=== PATIENT | male | born 1995 | race African-American/Black ===

== ENCOUNTER → 2020-02-06 12:48 | Outpatient (BNVA) | payer OTHER, SELFPAY | PROVIDERS: Visit Provider Surgery | DX: K62.89 Other specified diseases of anus and rectum (principal) | CPT/HCPCS: 46600; 99213 ==

== ENCOUNTER → 2020-04-09 09:21 | Outpatient (BNVA) | payer OTHER, SELFPAY | PROVIDERS: Visit Provider Surgery | DX: K62.89 Other specified diseases of anus and rectum (principal) | CPT/HCPCS: 46600; 99212 ==

== ENCOUNTER → 2020-05-07 15:19 | Outpatient (BNVA) | payer SELFPAY | PROVIDERS: Visit Provider Internal Medicine Gastroenterology | DX: Z76.89 Persons encountering health services in other specified circumstances (principal) ==

== ENCOUNTER 2020-08-06 15:24 | Outpatient (REF) | payer OTHER, SELFPAY ==
[2020-08-06 17:10] LABS: MANUAL DIFF FLAG NO
[2020-08-06 17:13] LABS: Basophils Absolute Auto 0.1 X10*3/uL (0.0-0.2); Basophils Percent Auto 0.7 % (0-2); Eosinophils Absolute Auto 0.2 X10*3/uL (0.0-0.4); Eosinophils Percent Auto 3.1 % (0-4); Hematocrit 40.5 % (42-52); Hemoglobin 13.5 g/dl (14.0-18.0); Imm Gran Abs Auto 0.01 X10*3/uL (0.00-0.03); Imm Gran Pct Auto 0.1 % (0.0-0.4); Lymphocytes Absolute Auto 1.4 X10*3/uL (1.2-4.9); Mean Corpuscular HGB Conc 33.3 g/dl (31.0-36.0); Mean Corpuscular Hemoglobin 29.9 pg (27.0-33.0); Mean Corpuscular Volume 89.8 fL (80-98); Mean Platelet Volume 9.4 fL (9.4-12.4); Monocytes Absolute Auto 0.5 X10*3/uL (0.1-1.2); Monocytes Percent Auto 6.6 % (2-11); Neutrophils Absolute Auto 5.3 X10*3/uL (2.0-8.3); Neutrophils Percent Auto 70.5 % (45-73); Platelet Count 304 X10*3/uL (160-400); Red Blood Count 4.51 X10*6/uL (4.60-5.80); Red Cell Distribution Width 11.3 % (11.0-16.0); White Blood Count 7.5 X10*3/uL (4.8-10.8)
[2020-08-06 17:35] LABS: Alanine Aminotransferase 21 U/L (0-40); Albumin Level 4.4 g/dL (3.5-5.0); Alkaline Phosphatase 61 U/L (39-117); Anion Gap 11 (12-20); Aspartate Amino Transferase 22 U/L (5-37); Bilirubin Total 0.9 mg/dL (0.0-1.0); Blood Urea Nitrogen 12 mg/dL (9-16); C Reactive Protein 0.25 mg/dL (< or = 0.50); Calcium 9.3 mg/dL (8.4-10.2); Carbon Dioxide 27 mmol/L (22-29); Chloride 108 mmol/L (96-108); Estimated Glomerular Filt Rate > 60; Glucose Random 92 mg/dL (60-115); Lipase 16 U/L (8-78); Potassium 4.5 mmol/L (3.3-5.1); Sodium 141 mmol/L (135-145)
[2020-08-06 17:56] LABS: Vitamin D 25-OH Total 7.5 ng/mL (>30)
[2020-08-06 18:07] LABS: Folate 9.3 ng/mL (> or = 4.0); Vitamin B12 197 pg/mL (200-900)
[2020-08-06 18:24] LABS: Erythrocyte Sedimentation Rate 3 MM/HR (0-15)
== END 2020-08-06 15:25 | disposition home or self-care (01) ==
LOC: HO.LAB 15:24
PROVIDERS: Visit Provider Internal Medicine Gastroenterology
DX: R10.9 Unspecified abdominal pain (principal); K60.2 Anal fissure, unspecified; K62.89 Other specified diseases of anus and rectum; K64.8 Other hemorrhoids; K62.5 Hemorrhage of anus and rectum
CPT/HCPCS: 36415; 80053; 82306; 82607; 82746; 83690; 85025; 85652; 86140; 99212

== ENCOUNTER 2020-09-24 07:44 | Outpatient (REF) | payer OTHER, SELFPAY ==
--- NOTE | ~2020-09-24 | US_ITS ---
EXAMINATION: US ABDOMEN COMPLETE CLINICAL INFORMATION: Unspecified abdominal pain. COMPARISON: CT pelvis 02/03/2018. Abdominal radiographs 03/12/2018 TECHNIQUE: Ultrasound of the abdomen is performed. FINDINGS: PANCREAS: The visualized pancreas is normal in size and contour and echogenicity and there is no pancreatic ductal distention. The distal body and tail are obscured by bowel gas and not completely imaged. ABDOMINAL AORTA: The proximal, mid, and distal segments are normal in caliber. INFERIOR VENA CAVA: Visualized portions are normal. LIVER: The liver is normal in size and smooth in contour. Hepatic parenchymal echogenicity is within limits of normal. Possibility of mild hepatic steatosis cannot be completely excluded. There is no focal hepatic parenchymal lesion. Doppler shows portal flow towards the liver. GALLBLADDER: Normal. The gallbladder is physiologically distended without evidence of stones, sludge, polyps, wall thickening or pericholecystic fluid. COMMON BILE DUCT: Normal in caliber measuring 0.2 cm in diameter. RIGHT KIDNEY: Normal. No hydronephrosis. No renal calculi or focal parenchymal lesions. The kidney measures 11.0 cm in maximum dimension. LEFT KIDNEY: Normal. No hydronephrosis. No renal calculi or focal parenchymal lesions. The kidney measures 10.0 cm in maximum dimension. SPLEEN: Normal. The spleen measures 11.7 cm in maximum dimension. FREE FLUID: None. US/US abdomen complete IMPRESSION: 1. No cholelithiasis or biliary ductal dilatation. 2. No hydronephrosis or visible renal calculi. 3. Visualized pancreas unremarkable. Portions are obscured by bowel gas.
== END 2020-09-24 07:45 | disposition home or self-care (01) ==
LOC: HO.US 07:44
PROVIDERS: Visit Provider Internal Medicine Gastroenterology
DX: R10.9 Unspecified abdominal pain (principal)
CPT/HCPCS: 76700

== ENCOUNTER → 2020-10-22 14:46 | Outpatient (BNVA) | payer OTHER, SELFPAY | PROVIDERS: Visit Provider Internal Medicine Gastroenterology | DX: K64.8 Other hemorrhoids (principal); K62.5 Hemorrhage of anus and rectum; K62.89 Other specified diseases of anus and rectum; K60.2 Anal fissure, unspecified; R10.9 Unspecified abdominal pain; E53.8 Deficiency of other specified B group vitamins | CPT/HCPCS: 99212 ==

== ENCOUNTER 2020-11-20 07:01 | Day surgery (SDC) | payer OTHER, SELFPAY ==
[2020-11-13 14:48] VITALS: BMI 35.2
--- NOTE | 2020-11-19 09:58 | HO.ANESPROP2 ---
Documented by User: Jessenia Dhaliwal 11/19/20 10:02 HPI - Anesthesia Eval Consult details Narrative: 25yo M for Upper Endoscopy and Colonoscopy PMF Active Problems Active Problems: All Active Problems (Updated 10/22/20 @ 20:34 by Mel Lopes MD) Rectal bleeding (Acute) Internal hemorrhoids (Acute) Abdominal pain (Acute) Vitamin B12 deficiency (Acute) Chronic diarrhea (Acute) Anal pain (Acute) Anal fissure (Acute) Depression (Acute) Anxiety (Acute) Past Medical History Medical History Anal fissure Anal pain Anxiety Depression Family History Family History Father History of hypertension Mother History of hyperthyroidism Brother No problems noted. Sister No problems noted. 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 Meds Allergies Allergy/AdvReac Type Severity Reaction Status Date / Time doxycycline AdvReac Unknown depression Verified 10/22/20 14:47 Home Medications Medication Instructions Recorded Confirmed Last Taken Type bupropion HCl 150 mg 24 hr tablet, 150 mg PO DAILY 02/06/20 11/13/20 Unknown History extended release lorazepam 0.5 mg tablet 0.5 mg PO BEDTIME PRN 08/06/20 11/13/20 Unknown History Exam Exam Date and Time: November 19, 2020 0958 Height,Weight and Vital Signs: Height 6 ft Weight 117.934 kg Assessment and Plan Assessment Anesthesia Assessment: Chart Reviewed Documented by User: Ambreen Hurdmelanie 11/20/20 07:29 [facility] Past Medical History Medical History Anal fissure Anal pain Anxiety Depression Family History Family History Father History of hypertension Mother History of hyperthyroidism Brother No problems noted. Sister No problems noted. 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 Meds Allergies Allergy/AdvReac Type Severity Reaction Status Date / Time doxycycline AdvReac Unknown depression Verified 10/22/20 14:47 Home Medications Medication Instructions Recorded Confirmed Last Taken Type bupropion HCl 150 mg 24 hr tablet, 150 mg PO DAILY 02/06/20 11/13/20 Unknown History extended release lorazepam 0.5 mg tablet 0.5 mg PO BEDTIME PRN 08/06/20 11/13/20 Unknown History Exam Airway Mallampati Class: II TM Dist: >3cm Neck ROM: Full Heart: rrr Lungs: cta Assessment and Plan Assessment Anesthesia Assessment: Anesthesia Plan Discussed and Chart Reviewed Final Anesthetic Review NPO: Yes ASA Class: II Final Preanesthetic Review: No Changes in Pt Med Stat and Consent Obtained/Reviewed Patient Risk: Intermediate Procedure Risk: Intermediate Anesthetic Plan Anesthetic Plan: MAC: Disposition: Standard PACU
[2020-11-20 07:17] VITALS: BP 137/80; PULSE 57; RESP 16; TEMP 36.8; O2SAT 99
[2020-11-20] MEDS: Lactated Ringers 1,000 ML 100 ML IVCONT (07:34)
--- NOTE | 2020-11-20 08:21 | MHC.SHP ---
Pre-Procedural Eval Section A Date of Service: 11/20/20 The patient is an INPATIENT: No Changes since office visit: Yes Patient answered all questions; No Cold of Flu in the past 2 weeks, No New Medical Problems and No Changes in Medication The History & Physical has been completed within 30 days and I have reviewed it.: Yes Section B Chief Complaint: deficiency of other specified B group vitamins Allergies: Allergies Allergy/AdvReac Type Severity Reaction Status Date / Time doxycycline AdvReac Unknown depression Verified 10/22/20 14:47 Exam Surgical H&P Exam: Normal: Heart, Normal: Lungs, Normal: Extremities and Normal: Abdomen Plan Diagnosis/Plan: Unchanged I have reviewed the history and physical and performed a pertinent physical examination on my patient. No changes have occurred unless specified.
--- NOTE | 2020-11-20 08:27 | PM.OP ---
Brief Operative Note Date of Service: 11/20/20 Pre-op diagnosis: Abd pain, diarrhea, recurrent anal fissure Post-op diagnosis: other (Gastritis, poor colon prep) Procedure: FLEXIBLE TRANSORAL UPPER GASTROINTESTINAL ENDOSCOPY WITH BIOPSIES AND COLONOSCOPY TILL CECUM/TI WITH BIOPSIES UPPER ENDOSCOPY Consent: Indications for the procedure and potential complications of bleeding, perforation, reaction to medications and missed diagnosis were discussed with the patient and informed consent was obtained. Instrument: Olympus GIF H 190 mid size upper endoscope Monitoring: Vital signs and clinical assessment, continuous EKG monitoring, Pulse oximetry, Carbon Dioxide monitoring and blood pressure monitoring were done throughout the procedure. Procedure: The patient was placed in the left lateral decubitis position and pre-procedure medications were administered and a bite block was placed. The endoscope was inserted into the mouth and advanced under direct vision to the third part of duodenum. A careful inspection was made as the upper endoscope was withdrawn including a retroflexed examination of the proximal stomach; Findings and interventions are described below. Findings: Larynx: Normal Esophagus: GE junction at 40 cms. No esophagitis or Page's. Stomach: Mild gastric erythema. Biopsies were obtained. Grade 2 flap valve on retroflexed examination of the cardia. Duodenum: Normal bulb and descending duodenum. Biopsies were obtained from 3rd part of duodenum to check for celiac sprue. Intervention: Biopsies as noted above COLONOSCOPY PROCEDURE NOTE Consent: Indications for the procedure and potential complications of bleeding, perforation, reaction to medications and missed diagnosis were discussed with the patient and informed consent was obtained. Instrument: Olympus PCF H 190 L variable stiffness pediatric colonoscope Monitoring: Vital signs and clinical assessment, intermittent blood pressure monitoring, continuous EKG monitoring, Pulse oximetry and Carbon Dioxide monitoring were done throughout the procedure. Colon withdrawl time was 22 minutes. Procedure: The patient was placed in the left lateral decubitis position and pre-procedure medications were administered. After a digital rectal examination of the ano-rectum, the video colonoscope was inserted into the rectum and advanced through the colon to the cecum. The colonoscope was slowly withdrawn in a retrograde panoramic fashion and the colon mucosa was carefully examined including a retroflexed view of the rectum. Findings and interventions are described below. Procedure Difficulty: : Colon was long and tortuous and there was some loop formation. LLQ pressure was applied to intubate the ascending colon/cecum Findings: Terminal Ileum: Distal 5 cms was examined and revealed nodular appearing mucosa without ulcers - random biopsies obtained Cecum: Partially evaluated due to poor prep - mucosa appeared normal Ascending Colon: Partially evaluated due to poor prep - mucosa appeared normal Transverse Colon: Partially evaluated due to poor prep - mucosa appeared normal Descending Colon: Partially evaluated due to poor prep - mucosa appeared normal Sigmoid Colon: Partially evaluated due to poor prep - mucosa appeared normal Rectum: Partially evaluated due to poor prep - mucosa appeared normal Ano-rectum: Tight anal sphincter and a few perianal skin tags and no active fissure was seen Colon preparation: Fair to poor with semi-solid and solid stools throughout the colon despite copious irrigation Impression and Post Procedure Diagnosis: Endoscopy Findings: STOMACH: Gastritis DUODENUM: Normal, biopsies were obtained to check for celiac sprue Colonoscopy Findings: Partially evaluated due to poor prep - mucosa appeared normal Nodular appearing TI. Random biopsies obtained from the TI, right and left colon to check for IBD Plan: Await pathology results Patient has an appointment on 12/17/20 in the [facility] with Mel Lopes M.D.. Repeat Colonoscopy in 20 years if colon biopsies are normal. Above findings were reviewed with the patient. Surgeon: Mel Lopes MD Anesthesia: MAC (Dr Sosa) Was an Business Quality Assurance Analyst used for this Procedure?: Yes Business Quality Assurance Analyst: Nick Olivas Estimated blood loss (mL): 0 Pathology: other (A- SMALL BOWEL BXS R/O CELIAC B- GASTRIC ANTRIUM BXS R/O H. PYLORI C- SMALL BOWEL BXS ( VIA COLONOSCOPY) D- RIGHT COLON BXS R/O IBD E- LEFT COLON BXS R/O IBD) Condition: stable Disposition: PACU
[2020-11-20 09:18] VITALS: BP 118/76; PULSE 68; RESP 16; TEMP 36.6; O2SAT 100
[2020-11-20 09:34] VITALS: BP 118/68; PULSE 58; RESP 18; O2SAT 100
[2020-11-20] MEDS: Acetaminophen 325 MG TABLET 650 MG PO (10:00)
== END 2020-11-20 10:35 | disposition home or self-care (01) ==
PROVIDERS: PCP Hospitalist; Visit Provider Internal Medicine Gastroenterology
PROC: (CPT 45380; principal; 2020-11-20 08:20)
DX: R10.9 Unspecified abdominal pain (principal); R19.7 Diarrhea, unspecified; K60.2 Anal fissure, unspecified; K64.4 Residual hemorrhoidal skin tags; E53.8 Deficiency of other specified B group vitamins; K29.50 Unspecified chronic gastritis without bleeding; F32.9 Major depressive disorder, single episode, unspecified; Z79.899 Other long term (current) drug therapy; Z88.1 Allergy status to other antibiotic agents
CPT/HCPCS: 45380; 43239; 88305; 88342

== ENCOUNTER → 2021-01-14 15:07 | Outpatient (BNVA) | payer OTHER, SELFPAY | PROVIDERS: Referring Provider Physician Assistant; Visit Provider Internal Medicine Gastroenterology | DX: K52.9 Noninfective gastroenteritis and colitis, unspecified (principal); K60.2 Anal fissure, unspecified; K59.09 Other constipation; E53.8 Deficiency of other specified B group vitamins | CPT/HCPCS: 99212 ==

== ENCOUNTER 2021-01-19 09:27 | Outpatient (REF) | payer OTHER, SELFPAY ==
[2021-01-19 10:10] LABS: Hematocrit 40.6 % (42-52); Hemoglobin 13.5 g/dl (14.0-18.0); Mean Corpuscular HGB Conc 33.3 g/dl (31.0-36.0); Mean Corpuscular Hemoglobin 29.9 pg (27.0-33.0); Mean Platelet Volume 9.9 fL (9.4-12.4); Platelet Count 296 X10*3/uL (160-400); Red Blood Count 4.51 X10*6/uL (4.60-5.80); Red Cell Distribution Width 11.2 % (11.0-16.0); White Blood Count 7.8 X10*3/uL (4.8-10.8)
[2021-01-19 10:22] LABS: Estimated Average Glucose 74 mg/dL; Hemoglobin A1c % 4.2 %
[2021-01-19 10:27] LABS: Alanine Aminotransferase 21 U/L (0-40); Albumin Level 4.1 g/dL (3.5-5.0); Alkaline Phosphatase 61 U/L (39-117); Anion Gap 11 (12-20); Aspartate Amino Transferase 22 U/L (5-37); Bilirubin Total 0.9 mg/dL (0.0-1.0); Blood Urea Nitrogen 16 mg/dL (9-16); Calcium 9.4 mg/dL (8.4-10.2); Carbon Dioxide 24 mmol/L (22-29); Chloride 110 mmol/L (96-108); Estimated Glomerular Filt Rate > 60; Glucose Fasting 93 mg/dL (60-99); Potassium 4.5 mmol/L (3.3-5.1); Sodium 140 mmol/L (135-145); Total Protein 6.7 g/dL (6.5-8.0)
[2021-01-19 10:49] LABS: Vitamin B12 182 pg/mL (200-900)
[2021-01-19 10:51] LABS: TSH reflex Free T4 2.59 uIU/mL (0.32-4.0)
== END 2021-01-19 09:28 | disposition home or self-care (01) ==
LOC: HO.LAB 09:27
PROVIDERS: Absent Provider Internal Medicine Gastroenterology; PCP Physician Assistant; Visit Provider Physician Assistant
DX: Z13.29 Encounter for screening for other suspected endocrine disorder (principal); I10 Essential (primary) hypertension; K52.9 Noninfective gastroenteritis and colitis, unspecified; E53.8 Deficiency of other specified B group vitamins
CPT/HCPCS: 36415; 80053; 82306; 82607; 83036; 84443; 85027

== ENCOUNTER 2021-02-04 06:30 | Outpatient (REF) | payer OTHER, SELFPAY ==
--- NOTE | ~2021-02-04 | CT_ITS ---
EXAMINATION: CT abdomen pelvis w con CLINICAL INFORMATION: Reason for Exam R10.9 - Unspecified abdominal pain COMPARISON: No prior CT available for comparison. TECHNIQUE: Multidetector volumetric imaging was performed from the superior aspect of the liver through the pubic symphysis 85 mL Omnipaque 350 injected. Sagittal and coronal reformatted images were obtained on the technologist's workstation. This CT examination was performed using dose optimization techniques as appropriate, variously including the following: *Automated exposure control *Adjustment of mA and/or kV according to patient size (this includes techniques or standardized protocols for targeted exams where dose is matched to indication/reason for exam; i.e. extremities or head) *Use of iterative reconstruction technique DLP: 753 mGy-cm FINDINGS: LOWER THORAX: Included lung bases are clear. HEPATOBILIARY: No focal hepatic lesions. No biliary ductal dilatation. GALLBLADDER: Gallbladder unremarkable. SPLEEN: Spleen is normal in size. PANCREAS: No focal mass or ductal dilatation. STOMACH AND GASTROINTESTINAL TRACT: Stomach is grossly unremarkable. There is no bowel distention or thickening. No CT evidence of appendicitis. There is excess amount of stool in the colon suggests possible constipation. ADRENALS: No adrenal nodules. KIDNEYS/URETERS: No hydronephrosis, stones or solid mass lesions. URINARY BLADDER: Partially decompressed. PELVIC VISCERA: Unremarkable PERITONEUM: No free air or fluid. LYMPH NODES: No lymphadenopathy. VASCULAR:Abdominal aorta normal in size, no aneurysm found. BONES, ABDOMINAL WALL AND SOFT TISSUES: Age-appropriate changes of the spine and skeletal system, no destructive osteolytic or osteosclerotic bone lesion found CT/CT abdomen pelvis w con IMPRESSION: 1. No CT evidence of acute intra-abdominal process to explain patient's pain symptoms, no evidence of appendicitis, there are no kidney stones or hydronephrosis. 2. Excess amount of stool in the colon suggests possible constipation. Please correlate clinically.
[2021-02-04] MEDS: Barium Sulfate Oral (Vanilla) 450 ML ORAL.SUSP 900 ML PO (09:18)
[2021-02-04] MEDS: iohexoL 350 MG/ML 100 ML INFUS..BTL IV (09:18)
== END 2021-02-04 06:31 | disposition home or self-care (01) ==
LOC: HO.CT 06:30
PROVIDERS: Visit Provider Internal Medicine Gastroenterology
DX: R10.9 Unspecified abdominal pain (principal); K59.09 Other constipation; K52.9 Noninfective gastroenteritis and colitis, unspecified
CPT/HCPCS: 74177; Q9967

== ENCOUNTER 2021-04-02 14:41 | Outpatient (REF) | payer OTHER, SELFPAY | END 2021-04-02 14:42 | disposition home or self-care (01) | LOC: HO.LAB 14:41 | PROVIDERS: PCP Physician Assistant; Visit Provider Internal Medicine Gastroenterology | DX: Z13.89 Encounter for screening for other disorder (principal) ==

== ENCOUNTER 2021-04-08 14:28 | Outpatient (REF) | payer OTHER, SELFPAY ==
[2021-04-13 02:31] LABS: Calprotectin, Fecal 29 mcg/g
== END 2021-04-08 14:29 | disposition home or self-care (01) ==
LOC: HO.LNP 14:28
PROVIDERS: Visit Provider Internal Medicine Gastroenterology
DX: R10.9 Unspecified abdominal pain (principal); K52.9 Noninfective gastroenteritis and colitis, unspecified
CPT/HCPCS: 83993

== ENCOUNTER → 2021-05-06 10:02 | Outpatient (BNVA) | payer OTHER, SELFPAY | PROVIDERS: PCP Physician Assistant; Referring Provider Physician Assistant; Visit Provider Internal Medicine Gastroenterology | DX: R10.9 Unspecified abdominal pain (principal); K62.5 Hemorrhage of anus and rectum; K64.8 Other hemorrhoids; E53.8 Deficiency of other specified B group vitamins; K60.2 Anal fissure, unspecified; K59.09 Other constipation; R19.8 Other specified symptoms and signs involving the digestive system and abdomen | CPT/HCPCS: 99212 ==

== ENCOUNTER 2021-05-20 09:46 | Outpatient (REF) | payer OTHER, SELFPAY ==
[2021-05-21 12:43] LABS: H Pylori Breath Test Negative (Negative)
== END 2021-05-20 09:47 | disposition home or self-care (01) ==
LOC: HO.LAB 09:46
PROVIDERS: PCP Physician Assistant; Referring Provider Physician Assistant; Visit Provider Internal Medicine Gastroenterology
DX: R10.9 Unspecified abdominal pain (principal); K59.09 Other constipation
CPT/HCPCS: 36415; 83013; 99211

== ENCOUNTER 2021-12-13 11:33 | Outpatient (REF) | payer OTHER, SELFPAY ==
[2021-12-13 12:16] LABS: Estimated Average Glucose 77 mg/dL; Hemoglobin A1c % 4.3 %
[2021-12-13 12:57] LABS: Alanine Aminotransferase 18 U/L (0-40); Albumin Level 4.4 g/dL (3.5-5.0); Alkaline Phosphatase 65 U/L (39-117); Anion Gap 15 (12-20); Aspartate Amino Transferase 19 U/L (5-37); Bilirubin Total 1.1 mg/dL (0.0-1.0); Blood Urea Nitrogen 15 mg/dL (9-16); Calcium 9.2 mg/dL (8.4-10.2); Carbon Dioxide 23 mmol/L (22-29); Chloride 107 mmol/L (96-108); Estimated Glomerular Filt Rate > 60; Glucose Fasting 65 mg/dL (60-99); Potassium 4.7 mmol/L (3.3-5.1); Sodium 140 mmol/L (135-145); Total Protein 7.2 g/dL (6.5-8.0)
[2021-12-13 13:06] LABS: TSH reflex Free T4 2.87 uIU/mL (0.32-4.0); Vitamin D 25-OH Total 15.9 ng/mL (>30)
[2021-12-13 13:09] LABS: Syphilis Screen Nonreactive (Nonreactive)
[2021-12-13 13:19] LABS: Folate 16.5 ng/mL (> or = 4.0); Vitamin B12 238 pg/mL (200-900)
[2021-12-13 17:24] LABS: CT PCR NOT DETECTED (Not Detect.); NG PCR NOT DETECTED (Not Detect.)
[2021-12-14 04:08] LABS: HBS Num1 6.01 mIU/mL (0-7.99); HBc Num1 0.14 S/CO (0.00-0.79); HBsAGNum1 0.21 S/CO (0.00-0.99); HIV AB/AG Nonreactive (Nonreactive); HIV Num 1 0.08 S/CO (0.00-0.99); Hepatitis B Core Antibody Nonreactive (Nonreactive); Hepatitis B Surface Antigen Negative (Negative); ~HepC Num1 0.09 S/CO (0.00-0.79); ~Hepatitis B Surface Antibody NONREACTIVE (Nonreactive); ~Hepatitis C Antibody Nonreactive (Nonreactive)
[2021-12-17 17:35] LABS: Vitamin A 47 mcg/dL (38-98)
[2021-12-21 13:21] LABS: Parietal Cell Antibody 49.4 Unit (<=20.0)
== END 2021-12-13 11:34 | disposition home or self-care (01) ==
LOC: HO.LAB 11:33
PROVIDERS: PCP Physician Assistant; Visit Provider Physician Assistant
DX: E53.8 Deficiency of other specified B group vitamins (principal); E66.09 Other obesity due to excess calories; Z68.35 Body mass index [BMI] 35.0-35.9, adult; Z11.3 Encounter for screening for infections with a predominantly sexual mode of transmission; Z20.2 Contact with and (suspected) exposure to infections with a predominantly sexual mode of transmission; Z13.29 Encounter for screening for other suspected endocrine disorder; Z13.1 Encounter for screening for diabetes mellitus
CPT/HCPCS: 80053; 82306; 82607; 82746; 83036; 83516; 84443; 84590; 86704; 86706; 86780; 86803; 87340; 87389; 87491; 87591

== ENCOUNTER 2022-01-24 11:12 | Emergency (ER) | payer OTHER, SELFPAY ==
[2022-01-24 14:28] VITALS: BP 111/70; PULSE 70; RESP 18; TEMP 36.9; O2SAT 99; BMI 35.2
== END 2022-01-24 17:09 | disposition left against medical advice (07) ==
PROVIDERS: Emergency Provider Emergency Medicine; PCP Physician Assistant
DX: H53.8 Other visual disturbances (principal); R51.9 Headache, unspecified
CPT/HCPCS: 99281

== ENCOUNTER 2022-12-03 09:43 | Outpatient (REF) | payer OTHER, SELFPAY ==
[2022-12-03 13:48] LABS: CT PCR NOT DETECTED (Not Detect.); NG PCR NOT DETECTED (Not Detect.)
[2022-12-05 04:33] LABS: HBc Num1 0.25 S/CO (0.00-0.79); HBsAGNum1 0.37 S/CO (0.00-0.99); HIV AB/AG Nonreactive (Nonreactive); HIV Num 1 0.06 S/CO (0.00-0.99); Hepatitis B Core Antibody Nonreactive (Nonreactive); Hepatitis B Surface Antigen Negative (Negative); ~HepC Num1 0.12 S/CO (0.00-0.79); ~Hepatitis C Antibody Nonreactive (Nonreactive)
[2022-12-05 04:34] LABS: Syphilis Screen Nonreactive (Nonreactive)
[2022-12-05 06:21] LABS: HBS Num2 8.65 mIU/mL (0-7.99); HBS Num3 8.61 mIU/mL (0-7.99); ~Hepatitis B Surface Antibody GRAYZONE (Nonreactive)
== END 2022-12-03 09:44 | disposition home or self-care (01) ==
LOC: HO.LAB 09:43
PROVIDERS: PCP Physician Assistant; Visit Provider Physician Assistant
DX: Z20.2 Contact with and (suspected) exposure to infections with a predominantly sexual mode of transmission (principal)
CPT/HCPCS: 0353U; 86704; 86706; 86780; 86803; 87340; 87389

== ENCOUNTER 2022-12-30 05:05 | Emergency (ER) | payer OTHER, SELFPAY ==
[2022-12-30 05:07] VITALS: BP 141/84; PULSE 85; RESP 18; TEMP 36.6; O2SAT 99; BMI 31.7
[2022-12-30 05:36] VITALS: BP 131/75; PULSE 71; RESP 14; TEMP 37; O2SAT 99
[2022-12-30 06:03] LABS: Appearance Urine Clear; Color Urine Yellow; Glucose Urine UA Negative (Negative); Leukocyte Esterase Urine Moderate (2+) (Negative); Nitrite Urine Negative (Negative); Specific Gravity - Urine 1.015 (1.005-1.025); UMIC TRIGGER UACC YES; Urine Blood Negative (Negative); Urine Ketones Negative (Negative); Urine Protein Negative (Neg-Trace)
[2022-12-30 06:08] LABS: Bacteria Urine None Seen (None Seen); Hyaline Casts Urine 0-2 /LPF (0-2); RBC Urine 0-2 /HPF (0-2); Squamous Epithelial Cell Urine 0-2 /HPF (0-2); UACC Culture Trigger YES; WBC Urine >50 /HPF (0-5)
--- NOTE | 2022-12-30 07:02 | ED_ITS ---
HPI - Male Genitourinary General Chief complaint: Urogenital-Male Stated complaint: urogen-male Time Seen by Provider: 12/30/22 06:57 Source: patient Mode of arrival: ambulatory Limitations: no limitations History of Present Illness HPI Narrative: 27 yo male no PMH here with c/o unprotected sex 2 weeks ago now with white discharge no rash and no pain with urination. no other symptoms. no rash no fevers MD Complaint: penile discharge and possible STD exposure Onset (ago): day(s) (few) Duration: intermittent Location: penis Severity: mild Relieving factors: none Exacerbating factors: urination Context: new sexual partner Associated symptoms: Reports discharge Related Data Home Medications Medication Instructions Recorded Confirmed dextroamphetamine-amphetamine ER 20 mg PO QAM 07/07/21 03/02/22 20 mg 24hr capsule,extend release (Adderall XR) Previous Rx's Medication Instructions Recorded doxycycline monohydrate 100 mg 100 mg PO BID #13 caps 12/30/22 capsule Allergies Allergy/AdvReac Type Severity Reaction Status Date / Time doxycycline AdvReac Unknown depression Verified 12/30/22 05:13 Review of Systems Review of Systems: Constitutional : No Fever, No Chills, Cardiovascular : No Chest Pain, No SOB Respiratory : No Dyspnea Gastrointestinal : No abdominal pain Musculoskeletal : No Joint Swelling Skin : No rash, no skin laceration Neuro : No Weakness, No Numbness : pos discharge, no dysuria PMFSH Past Medical History Attestation statement: The following information was validated with the patient. Medical History Anal fissure Anal pain Anxiety Depression Surgical History History of colonoscopy (~06/14/18) History of cystoscopy (~05/25/17) History of mastectomy (~2013) History of tonsillectomy Hx of esophagogastroduodenoscopy Family History Family History Father History of hypertension Mother History of hyperthyroidism Brother No problems noted. Sister No problems noted. Social History Social History Household Members: Family Housing: Apartment Alcohol intake: current Alcohol intake frequency: holidays/special occasions only Patient Tobacco Use Status: Never used Tobacco Smoked in Last 30 Days: No e-Cigarette/Vaping Use: Never Used Second Hand Smoke Exposure: No Use of substances other than those prescribed or required for medical reasons: No Advance Directives: No Advance Directives Information Provided: No Current occupational status: employed Current occupation: [employer] Cognitive needs: No Hearing needs: No Vision needs: Yes Physical Exam Vital Signs: Vital Signs: Last Vital Signs Temp 98.6 F 12/30/22 05:36 Pulse 71 12/30/22 05:36 Resp 14 12/30/22 05:36 BP 131/75 12/30/22 05:36 Pulse Ox 99 12/30/22 05:36 O2 Del Method Room Air 12/30/22 05:36 BMI result Body Mass Index 31.7 Appearance: Alert. Oriented X3. No acute distress. Eyes: Pupils equal, round and reactive to light. ENT: Pharynx normal. Neck: Normal inspection. Neck supple. CVS: Pulses normal. Respiratory: No respiratory distress. Abdomen: Soft and nontender. : scant discharge seen no rash no mass otherwise normal Skin: Skin warm and dry. Normal skin color. Extremities: No lower extremity edema. Neuro: Oriented X 3. No motor deficit. No sensory deficit. Medical Decision Making Medical Decision Making [facility] Narrative: 27 yo male with no hx of DM here with c/o penile discharge no rash no mass no fevers no urinary symptoms started after sexual intercourse - normal exam other than discharge at this time will start on ceftriaxone and doxycycline. Given precautions to return, safe sex practices Differential Diagnosis Differential Diagnoses: The differential diagnosis associated with the presentation includes STI, UTI Lab Data [facility] Lab Attestation statement: I reviewed the patient's lab results. Labs: Lab Results 12/30/22 Range/Units 05:57 Urine Color Yellow Urine Appearance Clear Urine pH 6.0 (5.0-9.0) Ur Specific [place] 1.015 (1.005-1.025) Urine Protein Negative (Neg-Trace) mg/dL Urine Glucose (UA) Negative (Negative) mg/dL Urine Ketones Negative (Negative) mg/dL Urine Blood Negative (Negative) Urine Nitrite Negative (Negative) Ur Leukocyte Esterase Moderate (2+) H (Negative) Urine RBC 0-2 (0-2) /HPF Urine WBC >50 H (0-5) /HPF Ur Squamous Epith Cells 0-2 (0-2) /HPF Urine Bacteria None Seen (None Seen) Hyaline Casts 0-2 (0-2) /LPF External Record Review External record reviewed: Inpatient record Prescription Management I considered prescription management with: Antibiotic doxycycline has tolerated before denies SI just makes him feel run down Discharge Plan Discharge Clinical Impression: Urethritis, STI (sexually transmitted infection) Patient Disposition: Home, Self-Care Instructions: Sexually Transmitted Diseases (ED) Additional Instructions: take antibiotics with full glass of water and meal can cause sun sensitivities. any thoughts of self harm call [phone]. if no improvement in symptoms please return. no sexual contact for 1 week. partner should get tested so you do not reinfect each other[facility] HIV and syphillis Prescriptions: New doxycycline monohydrate 100 mg capsule 100 mg PO BID Qty: 13 0RF No Action dextroamphetamine-amphetamine [Adderall XR] 20 mg capsule,extended release 24hr 20 mg PO QAM
--- NOTE | 2022-12-30 07:04 | PC.NURSE ---
Assumed care of this patient at 0700. ED Provider and male staff member at bedside.
[2022-12-30 07:13] VITALS: BP 122/69; PULSE 59; RESP 12; O2SAT 100
[2022-12-30] MEDS: cefTRIAXone sodium 500 MG, Lidocaine HCl 1 % MPF 1 ML IM (07:16)
[2022-12-30] MEDS: Doxycycline Monohydrate 100 MG CAPSULE PO (07:16)
--- NOTE | 2022-12-30 07:22 | PC.NURSE ---
Pt has documented adverse rx to doxycycline w/ rx of depression . Pt spoke w/ provider and agreed to take. Meds give as ordered.
--- NOTE | 2022-12-30 07:26 | PC.NURSE ---
Cleared for discharge. Instructions reviewed w/ pt. Denies pain at discharge......................................
[2022-12-30 09:27] LABS: CT PCR NOT DETECTED (Not Detect.); NG PCR NOT DETECTED (Not Detect.)
== END 2022-12-30 07:27 | disposition home or self-care (01) ==
PROVIDERS: Emergency Provider Emergency Medicine; PCP Physician Assistant
DX: N34.2 Other urethritis (principal); A64 Unspecified sexually transmitted disease; Z79.899 Other long term (current) drug therapy
CPT/HCPCS: 0353U; 81001; 87086; 96372; 99284; J0696

== ENCOUNTER 2023-01-06 05:30 | Emergency (ER) | payer OTHER, SELFPAY ==
--- NOTE | ~2023-01-06 | XR_ITS ---
EXAMINATION: XR CHEST CLINICAL INFORMATION: Chest pain COMPARISON: None available. TECHNIQUE: Frontal view of the chest was obtained. FINDINGS: No significant abnormality is noted involving the heart, lungs, mediastinum, bony thorax or soft tissues. XR/XR chest 1V IMPRESSION: Unremarkable examination.
--- NOTE | 2023-01-06 05:32 | ECG_ITS ---
Test Reason : chest pain Blood Pressure : / mmHG Vent. Rate : 074 BPM Atrial Rate : 074 BPM P-R Int : 142 ms QRS Dur : 094 ms QT Int : 360 ms P-R-T Axes : 056 072 039 degrees QTc Int : 399 ms Normal sinus rhythm with sinus arrhythmia RSR' or QR pattern in V1 suggests right ventricular conduction delay Abnormal ECG When compared with ECG of 13-MAR-2017 18:03, No significant change was found Referred By: Generic ED Physician Electronically Signed By:KAYLA MARC
[2023-01-06 05:40] VITALS: BP 135/84; PULSE 74; RESP 18; TEMP 36.7; O2SAT 97; BMI 31.6
[2023-01-06 05:59] VITALS: BP 125/74; PULSE 56; RESP 18; TEMP 36.9; O2SAT 97
[2023-01-06 06:50] LABS: MANUAL DIFF FLAG NO
[2023-01-06 06:51] LABS: Basophils Absolute Auto 0.1 X10*3/uL (0.0-0.2); Basophils Percent Auto 0.9 % (0-2); Eosinophils Absolute Auto 0.1 X10*3/uL (0.0-0.4); Eosinophils Percent Auto 2.4 % (0-4); Hematocrit 40.7 % (42.0-52.0); Hemoglobin 13.8 g/dl (14.0-18.0); Imm Gran Abs Auto 0.02 X10*3/uL (0.00-0.03); Imm Gran Pct Auto 0.4 % (0.0-0.4); Lymphocytes Absolute Auto 1.2 X10*3/uL (1.2-4.9); Lymphocytes Percent Auto 22.6 % (20-40); Mean Corpuscular HGB Conc 33.9 g/dl (31.0-36.0); Mean Corpuscular Hemoglobin 30.2 pg (27.0-33.0); Mean Corpuscular Volume 89.1 fL (80.0-98.0); Mean Platelet Volume 10.1 fL (9.4-12.4); Monocytes Absolute Auto 0.4 X10*3/uL (0.1-1.2); Monocytes Percent Auto 7.8 % (2-11); Neutrophils Absolute Auto 3.5 x10*3/uL (2.0-8.3); Neutrophils Percent Auto 65.9 % (45-73); Platelet Count 260 X10*3/uL (160-400); Red Blood Count 4.57 X10*6/uL (4.60-5.80); Red Cell Distribution Width 11.3 % (11.0-16.0); White Blood Count 5.4 X10*3/uL (4.8-10.8)
[2023-01-06 07:08] LABS: Alanine Aminotransferase 18 U/L (0-40); Albumin Level 4.3 g/dL (3.5-5.0); Alkaline Phosphatase 48 U/L (39-117); Anion Gap 11 (12-20); Aspartate Amino Transferase 23 U/L (5-37); Bilirubin Total 2.2 mg/dL (0.0-1.0); Blood Urea Nitrogen 9 mg/dL (9-16); Carbon Dioxide 25 mmol/L (22-29); Chloride 109 mmol/L (96-108); Creatinine Clr Calc Pharmacy 139.5; Estimated Glomerular Filt Rate > 60; Glucose Random 89 mg/dL (60-115); Potassium 3.7 mmol/L (3.3-5.1); Sodium 141 mmol/L (135-145); Total Protein 6.9 g/dL (6.5-8.0)
[2023-01-06 07:08] LABS: Appearance Urine Clear; Color Urine Dark Yellow; Glucose Urine UA Negative (Negative); Leukocyte Esterase Urine Trace (Negative); Nitrite Urine Negative (Negative); Specific Gravity - Urine >= 1.030 (1.005-1.025); UMIC TRIGGER UACC YES; Urine Blood Negative (Negative); Urine Ketones Trace mg/dL (Negative); Urine Protein Negative (Neg-Trace)
[2023-01-06 07:12] LABS: B Type Natriuretic Peptide 79 pg/mL (<100)
[2023-01-06 07:13] LABS: Troponin-I High Sensitivity < 2.7 ng/L (<3.5-35.0)
[2023-01-06 07:21] LABS: Bacteria Urine None Seen (None Seen); Hyaline Casts Urine 0-2 /LPF (0-2); RBC Urine 0-2 /HPF (0-2); Squamous Epithelial Cell Urine 0-2 /HPF (0-2); WBC Urine 0-5 /HPF (0-5)
[2023-01-06 08:29] LABS: Troponin-I High Sensitivity < 2.7 ng/L (<3.5-35.0)
[2023-01-06] MEDS: Magnesium Hydrox/Alum Hydrox 30 ML ORAL.SUSP 15 ML PO (08:29)
[2023-01-06] MEDS: PHENobarb/Hyoscy/Atropine/Scop 10 ML ELIXIR PO (08:30)
--- NOTE | 2023-01-06 08:39 | ED_ITS ---
HPI - General Adult General Chief complaint: General Medical Stated complaint: Chest pain, shortness of breath Time Seen by Provider: 01/06/23 06:33 Source: patient Mode of arrival: ambulatory Limitations: no limitations Related Data Home Medications Medication Instructions Recorded Confirmed dextroamphetamine-amphetamine ER 20 mg PO QAM 07/07/21 03/02/22 20 mg 24hr capsule,extend release (Adderall XR) Previous Rx's Medication Instructions Recorded doxycycline monohydrate 100 mg 100 mg PO BID #13 caps 12/30/22 capsule Allergies Allergy/AdvReac Type Severity Reaction Status Date / Time doxycycline AdvReac Unknown depression Verified 12/30/22 05:13 Review of Systems 2 Review of Systems: Constitutional : No Weight loss, No Fever, No Chills, No Fatigue, No Malaise ENT/Mouth : No sore throat, No Rhinorrhea Eyes: No Eye Pain, No Swelling, No Redness Cardiovascular : + Chest Pain, No SOB, No Dyspnea on Exertion, No Orthopnea, No Edema, No Palpitations Respiratory : No Cough, No Sputum, No Wheezing Gastrointestinal : No Nausea, No Vomiting, No Diarrhea, No Constipation, No abdominal Pain, No Hematochezia, No Melena Genitourinary : No Dysuria, No Urinary Frequency, No Hematuria, Musculoskeletal : No joint pain, No Myalgias, No Joint Swelling Skin : No Skin Lesions, No rash Neuro : No Weakness, No Numbness, No Dizziness, No Headache Psych : No Anxiety/Panic, No Depression All other systems reviewed and are negative Yes all other systems are reviewed and are negative [facility] Past Medical History Attestation statement: The following information was validated with the patient. Source: old records reviewed and nursing notes reviewed Medical History Anal pain Anal fissure Depression Anxiety Surgical History Hx of esophagogastroduodenoscopy History of colonoscopy (~06/14/18) History of mastectomy (~2013) History of cystoscopy (~05/25/17) History of tonsillectomy Family History Family History Father History of hypertension Mother History of hyperthyroidism Brother No problems noted. Sister No problems noted. Social History Social History Household Members: Family Housing: Apartment Alcohol intake: current Alcohol intake frequency: holidays/special occasions only Patient Tobacco Use Status: Never used Tobacco e-Cigarette/Vaping Use: Never Used Second Hand Smoke Exposure: No Advance Directives: No Advance Directives Information Provided: No Current occupational status: employed Current occupation: [employer] Cognitive needs: No Hearing needs: No Vision needs: Yes Physical Exam ED Vital Signs: Vital Signs - 24 hr 01/06/23 05:40 01/06/23 05:59 Temperature 98.0 F 98.5 F Pulse Rate 74 56 Respiratory Rate 18 18 Blood Pressure 135/84 125/74 Pulse Oximetry 97 97 Oxygen Delivery Method Room Air Room Air BMI result Body Mass Index 31.6 vss Appearance: Alert.? Oriented X3.? No acute distress.? Head: Normocephalic, atraumatic, no step-offs or deformities Eyes: Pupils equal, round and reactive to light.? ENT: Pharynx normal.? Neck: Normal inspection.? Neck supple.? CVS: Normal heart rate and rhythm.? Pulses normal.? Respiratory: No respiratory distress.? Breath sounds normal.? Abdomen: Soft and nontender.? Skin: Skin warm and dry.? Normal skin color.? Normal skin turgor.? Extremities: No lower extremity edema.? No calf ttp. 5/5 strength to bilateral upper and lower extremities Neuro: Oriented X 3.? No motor deficit.? No sensory deficit. CN 2-12 intact Course Reevaluation(s) Reevaluation #1: CBC appears to be around patient's baseline. Chemistry with no acute findings requiring intervention. Normal BNP. Troponin negative x2, EKG nonischemic. Patient reports he still feels a burning pain in his throat/chest however somewhat improved. UA without infection. Dimer negative. Chest x-ray with no acute findings. Will have him follow up with GI as well as Cardiology. Educated patient on diagnosis and treatment plan, answered all question, patient verbalizes understanding. At this time patient will be discharged home, advised to return with new or worsening symptoms. Educated on worrisome signs and symptoms and when to return. At this time I feel comfortable discharge home. This time history and physical exam not consistent with ACS, PE, dissection. This is likely noncardiac related chest pain/esophagitis. Time: 10:49 Medications Administered Discontinued Medications Generic Name Dose Route Start Last Admin Trade Name Riley PRN Reason Stop Dose Admin Al Hydroxide/Mg Hydroxide 15 ml 01/06/23 07:51 01/06/23 08:29 Magnesium Hydrox/Alum Hydrox 30 Ml Oral.Susp PO 01/06/23 07:52 15 ml ONCE ONE Administration Belladonna Alkaloids/Phenobarbital 10 ml 01/06/23 07:51 01/06/23 08:30 Phenobarb/Hyoscy/Atropine/Scop 10 Ml Elixir PO 01/06/23 07:52 10 ml ONCE ONE Administration Ketorolac Tromethamine 30 mg 01/06/23 09:39 01/06/23 10:22 Ketorolac Tromethamine 15 Mg/Ml Vial IVPUSH 01/06/23 09:40 30 mg ONCE ONE Administration Medical Decision Making Medical Decision Making [facility] Narrative: [age] year old male presents w/ burning cp s/p starting doxycycline 1 week ago. Had diarrhea but it improved PE benign well appearing Likely pill esophagitis, unlikely acs, PE ( perc negative), disection, pericarditis, endocardiitis, myocarditits, pna. Other differentials include viral illness, anxiety Plan- labs, imaigng, ekg Differential Diagnosis Differential Diagnoses: The differential diagnosis associated with the presentation includes Likely pill esophagitis, unlikely acs, PE ( perc negative), disection, pericarditis, endocardiitis, myocarditits, pna. Other differentials include viral illness, anxiety Admission/Observation Consideration of admission/observation: Escalation of care including admission/observation considered Unlikely Lab Data [facility] Lab Attestation statement: I reviewed the patient's lab results. 01/06/23 06:45 01/06/23 06:45 Labs: Lab Results 01/06/23 01/06/23 01/06/23 Range/Units 06:40 06:45 08:00 WBC 5.4 (4.8-10.8) X10*3/uL RBC 4.57 L (4.60-5.80) X10*6/uL Hgb 13.8 L (14.0-18.0) g/dl Hct 40.7 L (42.0-52.0) % MCV 89.1 (80.0-98.0) fL MCH 30.2 (27.0-33.0) pg MCHC 33.9 (31.0-36.0) g/dl RDW 11.3 (11.0-16.0) % Plt Count 260 (160-400) X10*3/uL MPV 10.1 (9.4-12.4) fL Immature Gran % (Auto) 0.4 (0.0-0.4) % Neut % (Auto) 65.9 (45-73) % Lymph % (Auto) 22.6 (20-40) % [place] % (Auto) 7.8 (2-11) % Eos % (Auto) 2.4 (0-4) % Baso % (Auto) 0.9 (0-2) % Lymph # (Auto) 1.2 (1.2-4.9) X10*3/uL [place] # (Auto) 0.4 (0.1-1.2) X10*3/uL Eos # (Auto) 0.1 (0.0-0.4) X10*3/uL Baso # (Auto) 0.1 (0.0-0.2) X10*3/uL Abs Immat Gran (auto) 0.02 (0.00-0.03) X10*3/uL Absolute Neuts (auto) 3.5 (2.0-8.3) x10*3/uL Absolute Nucleated RBC 0.000 (0.0-0.012) X10*3/uL Nucleated RBC % (auto) 0.0 (0.0-0.2) /100WBC D-Dimer High Sensitivty NG/ML Sodium 141 (135-145) mmol/L Potassium 3.7 D (3.3-5.1) mmol/L Chloride 109 H (96-108) mmol/L Carbon Dioxide 25 (22-29) mmol/L Anion Gap 11 L (12-20) BUN 9 (9-16) mg/dL Creatinine 0.99 (0.5-1.4) mg/dL Estim Creat Clear Calc 139.5 Estimated GFR > 60 Random Glucose 89 (60-115) mg/dL Calcium 10.0 D (8.4-10.2) mg/dL Magnesium 2.0 (1.6-2.6) mg/dL Total Bilirubin 2.2 H (0.0-1.0) mg/dL AST 23 (5-37) U/L ALT 18 (0-40) U/L Alkaline Phosphatase 48 (39-117) U/L Troponin I High Sens < 2.7 < 2.7 (<3.5-35.0) ng/L B-Natriuretic Peptide 79 (<100) pg/mL Total Protein 6.9 (6.5-8.0) g/dL Albumin 4.3 (3.5-5.0) g/dL Urine Color Dark Yellow Urine Appearance Clear Urine pH 6.0 (5.0-9.0) Ur Specific [place] >= 1.030 H (1.005-1.025) Urine Protein Negative (Neg-Trace) mg/dL Urine Glucose (UA) Negative (Negative) mg/dL Urine Ketones Trace (Negative) mg/dL Urine Blood Negative (Negative) Urine Nitrite Negative (Negative) Ur Leukocyte Esterase Trace H (Negative) Urine RBC 0-2 (0-2) /HPF Urine WBC 0-5 (0-5) /HPF Ur Squamous Epith Cells 0-2 (0-2) /HPF Urine Bacteria None Seen (None Seen) Hyaline Casts 0-2 (0-2) /LPF 01/06/23 Range/Units 09:43 WBC (4.8-10.8) X10*3/uL RBC (4.60-5.80) X10*6/uL Hgb (14.0-18.0) g/dl Hct (42.0-52.0) % MCV (80.0-98.0) fL MCH (27.0-33.0) pg MCHC (31.0-36.0) g/dl RDW (11.0-16.0) % Plt Count (160-400) X10*3/uL MPV (9.4-12.4) fL Immature Gran % (Auto) (0.0-0.4) % Neut % (Auto) (45-73) % Lymph % (Auto) (20-40) % [place] % (Auto) (2-11) % Eos % (Auto) (0-4) % Baso % (Auto) (0-2) % Lymph # (Auto) (1.2-4.9) X10*3/uL [place] # (Auto) (0.1-1.2) X10*3/uL Eos # (Auto) (0.0-0.4) X10*3/uL Baso # (Auto) (0.0-0.2) X10*3/uL Abs Immat Gran (auto) (0.00-0.03) X10*3/uL Absolute Neuts (auto) (2.0-8.3) x10*3/uL Absolute Nucleated RBC (0.0-0.012) X10*3/uL Nucleated RBC % (auto) (0.0-0.2) /100WBC D-Dimer High Sensitivty < 150 NG/ML Sodium (135-145) mmol/L Potassium (3.3-5.1) mmol/L Chloride (96-108) mmol/L Carbon Dioxide (22-29) mmol/L Anion Gap (12-20) BUN (9-16) mg/dL Creatinine (0.5-1.4) mg/dL Estim Creat Clear Calc Estimated GFR Random Glucose (60-115) mg/dL Calcium (8.4-10.2) mg/dL Magnesium (1.6-2.6) mg/dL Total Bilirubin (0.0-1.0) mg/dL AST (5-37) U/L ALT (0-40) U/L Alkaline Phosphatase (39-117) U/L Troponin I High Sens (<3.5-35.0) ng/L B-Natriuretic Peptide (<100) pg/mL Total Protein (6.5-8.0) g/dL Albumin (3.5-5.0) g/dL Urine Color Urine Appearance Urine pH (5.0-9.0) Ur Specific [place] (1.005-1.025) Urine Protein (Neg-Trace) mg/dL Urine Glucose (UA) (Negative) mg/dL Urine Ketones (Negative) mg/dL Urine Blood (Negative) Urine Nitrite (Negative) Ur Leukocyte Esterase (Negative) Urine RBC (0-2) /HPF Urine WBC (0-5) /HPF Ur Squamous Epith Cells (0-2) /HPF Urine Bacteria (None Seen) Hyaline Casts (0-2) /LPF Independent Interpretation I performed an independent interpretation of an: EKG (Ventricular rate of 74, WI normal, QRS normal, QT/QTC normal. EKG with sinus rhythm with sinus arrhythmia, no ST elevations or inversions concerning for acute ischemia.) Radiology Impression Discussion of test interpretation with radiology: I have reviewed the radiologist's reading. Core Measures AMI core measures followed: Yes Measure exclusions: not indicated Critical Care Time Critical Care Time Critical Care Time: No Discharge Plan Discharge Clinical Impression: Chest pain not due to acute coronary syndrome Patient Disposition: Home, Self-Care Instructions: Chest Pain (ED) Additional Instructions: Take your medications as prescribed. If you were prescribed antibiotics today, it is important that you take your medication to their entirety, do not skip any doses, do not finish them early. Follow-up with your primary care provider this week. Return to the emergency department with new or worsening symptoms. Such as fevers, chills, chest pain, shortness of breath, nausea, vomiting, dizziness, headache, vision changes, lethargy In case of emergency call 911 Prescriptions: No Action doxycycline monohydrate 100 mg capsule 100 mg PO BID Qty: 13 0RF dextroamphetamine-amphetamine [Adderall XR] 20 mg capsule,extended release 24hr 20 mg PO QAM Referrals: [facility] [Provider Group] - 3 days Stand Alone Forms: Work/School Release Interventions: ED Discharge Assessment Last Done: 01/06/23 10:27 Discharge Date/Time: 01/06/23 10:27
--- NOTE | 2023-01-06 09:28 | ECG_ITS ---
Test Reason : bradycardic Blood Pressure : / mmHG Vent. Rate : 048 BPM Atrial Rate : 048 BPM P-R Int : 136 ms QRS Dur : 090 ms QT Int : 408 ms P-R-T Axes : -07 068 039 degrees QTc Int : 364 ms Sinus bradycardia RSR' or QR pattern in V1 suggests right ventricular conduction delay Abnormal ECG When compared with ECG of 06-JAN-2023 05:33, Vent. rate has decreased BY 26 BPM Referred By: Irena Schneider Electronically Signed By:KAYLA MARC
--- NOTE | 2023-01-06 09:51 | PC.NURSE ---
alert and oriented, respirations even and unlabored. pt resting quietly in room on phone at this time. iv established, labs drawn and sent. call mayer within reach
[2023-01-06 09:57] LABS: D Dimer High Sensitivity < 150 NG/ML
[2023-01-06] MEDS: Ketorolac Tromethamine 15 MG/ML VIAL 30 MG IVPUSH (10:22)
== END 2023-01-06 10:27 | disposition home or self-care (01) ==
PROVIDERS: Physician Assistant; Emergency Provider Emergency Medicine; PCP Physician Assistant
DX: R07.9 Chest pain, unspecified (principal); R06.02 Shortness of breath
CPT/HCPCS: 36415; 71045; 80053; 81001; 81003; 83735; 83880; 84484; 85025; 85379; 93005; 96374; 99284; 99285; J1885

== ENCOUNTER 2023-01-18 16:30 | Outpatient (REF) | payer OTHER, SELFPAY ==
[2023-01-18 17:40] LABS: Appearance Urine Clear; Color Urine Yellow; Glucose Urine UA Negative (Negative); Leukocyte Esterase Urine Trace (Negative); Nitrite Urine Negative (Negative); Specific Gravity - Urine 1.015 (1.005-1.025); UMIC TRIGGER UACC YES; Urine Blood Negative (Negative); Urine Ketones Negative (Negative); Urine Protein Negative (Neg-Trace)
[2023-01-18 17:46] LABS: Bacteria Urine None Seen (None Seen); Hyaline Casts Urine 0-2 /LPF (0-2); RBC Urine 0-2 /HPF (0-2); Squamous Epithelial Cell Urine 0-2 /HPF (0-2); WBC Urine 0-5 /HPF (0-5)
[2023-01-19 09:03] LABS: HIV AB/AG Nonreactive (Nonreactive); HIV Num 1 0.05 S/CO (0.00-0.99)
[2023-01-20 08:06] LABS: Syphilis Screen Nonreactive (Nonreactive)
== END 2023-01-18 16:31 | disposition home or self-care (01) ==
LOC: HO.LAB 16:30
PROVIDERS: PCP Physician Assistant; Visit Provider Physician Assistant
DX: Z11.4 Encounter for screening for human immunodeficiency virus [HIV] (principal); Z20.2 Contact with and (suspected) exposure to infections with a predominantly sexual mode of transmission
CPT/HCPCS: 36415; 81001; 86780; 87389

== ENCOUNTER 2023-02-10 07:25 | Outpatient (AMB) | payer OTHER, SELFPAY ==
[2023-02-10 07:30] VITALS: BP 124/71; PULSE 82; BMI 31.6
--- NOTE | 2023-02-10 07:30 | A.OFFVIS_ITS ---
Intake Vital Signs 02/10/23 07:30 Height 6 ft Weight 233 lb BMI 31.6 BP 124/71 Blood Pressure Location Lt brachial Position Sitting Pulse 82 Intake Visit Reasons: follow up Intake Note: Patient follow up foe ER due chest pain and short of breath. Patient cc: abdominal bloating, acid reflex with burning sensation, swallowing problems and still feeling some chest pain and pressure every time he is eating. Allergies doxycycline Adverse Reaction (Unknown, Verified 03/08/23 08:33) depression Medication List - Last Reconciled 02/10/23 by Mel Lopes MD dexmethylphenidate (Focalin) 10 mg PO DAILY HPI follow up HPI Details GI CLINIC VISIT FOR THIS 27-YEAR-OLD MALE FOR FOLLOW-UP OF ABDOMINAL PAIN, ANAL FISSURE WITH RECTAL BLEEDING. Patient returns after hiatus of 20 months (last seen in May, 2021) Patient follow up foe ER due chest pain and short of breath. Patient cc: abdominal bloating, acid reflex with burning sensation, swallowing problems and still feeling some chest pain and pressure every time he is eating. ?CHRONIC ILLNESSES:?dysuria, anxiety, depression, gynecomastia, prostatitis, HX CHALAMYDIA and PAROTID STONES ? LABS IN [employer]: Reviewed - H & H has been stable, STOOL TEST FOR GIARDIA ANTIGEN WAS NEGATIVE. ? ? ? IMAGING STUDIES:? 02/04/[address] SCAN SHOWED: 1. No CT evidence of acute intra-abdomin al process to explain patient's pain symptoms, no evidence of appendicitis, there are no kidney stones or hydronephrosis. 2. Excess amount of stool in the colon s uggests possible constipation. 09/24/2020 ABDOMINAL ULTRASOUND SHOWED: 1. No cholelithiasis or biliary ductal d ilatation. 2. No hydronephrosis or visible renal ca lculi. 3. Visualized pancreas unremarkable. Por tions are obscured by bowel gas. ? ?ENDOSCOPIC STUDIES: 11/20/20 EGD AND COLONOSCOPY SHOWED: STOMACH: Gastritis - biopsies showed?Antral-type and oxyntic mucosa with moderate chronic inactive inflammation; no Helicobacter organisms seen. DUODENUM: Normal, biopsies were obtained to check for celiac sprue Colonoscopy Findings: Partially evaluated due to poor prep - mucosa appeared normal Nodular appearing TI. Random biopsies obtained from the TI, right and left colon to check for IBD which were normal. Plan:? Patient has an appointment on 12/17/20 in the GI Clinic with Mel Lopes M.D.. Repeat Colonoscopy in 20 years if colon biopsies are normal. Jun 2018: Colonoscopy showed: ? No polyps were deteceted ? Tight anal sphincter, healing anal fissure and moderate hemorrhoids on retroflexed exam. ? Rectal pain and bleeding likely due to anal fissure versus hemorrhoids. ? Plan: Start Citrucil and hydrocortisone cream. ? Resume screening Colonoscopy at age 45 to 50 yrs. ? Above findings were reviewed with the patient and handout on Anal Fissure was given to him. ? A. Colon, random, biopsies: Colonic mucosa with no diagnostic alteration. ? B. Rectum, biopsies: Colonic mucosa with mild congestion and focal lamina propria hemorrhage; no evidence of colitis TODAY'S VISIT Pt states he was unable to FU since he was homeless for a while and now he has a stable spot to live in Working at [employer] in the [employer] de[employer]. Continues to have sore throat and chest pain - not as bad - just has tightness Symptoms started after he took antibiotics for a UTI Was noticing pressure in the throat when he ate late. Noted regurgitation when he bent and lifted something heavy Notes chest pain when he eats something and lasta 45 min to an hour. trying to eat bland foods - white rice, mashed potatoes and yogurt. Had an Omelete yesterday and it hurt for a while He was taking Omeprazole in the past and not taking it anymore. Thinks he has bad acid reflux Pt was referred to ENT for globus sensation and did not get a call to schedule an appt. Continues to have constipation, feels sphincter is tight. Denies rectal bleeding Intentional wt loss PAST VISITS CT results reviewed. Continued dull pain in the throat and feels something in the throat. Denies dysphagia. No mouth sores for the past 1.5 months. Started Vitamin B12 injections monthly since january. Complains of intermittent episodes of mouth sores, abdominal pain, diarrhea, sore joints (shoulders, elbows, hands, knees, ankles, feet and lower back). During the episode, he only able to eat white rice. Going through an episode right now since the past 2.5 weeks ago. Symptoms are clearing up over the last few days. Has cut out dairy and has helped a little bit - not as intense as they used to be. Can be in the bathroom for 2 hrs and other times it flows out and has to go to the bathroom every 20 minutes. In between the episodes he feels constipated. Denies recent rectal bleeding - minor bleeding 3 weeks ago. Wt has been fluctuating a lot. Can loose 10 lbs during the episode. Takes a Fibre supplement every morning and stool are not as hard as in the past. Notes an episode every other month since June, and episodes last for 10-14 days and then resolves spontaneously.? PAST VISIT: Took some motrin during the last episode. Has 3-4 BMs a day when he has the diarrhea - no blood or mucous in the stool. First BMs is loose and then it becomes watery. Occasional chills and sweating and denies fevers. Denies rectal bleeding during flare ups of abdominal pain or over the past few months. Wt loss of 50 lbs - combination of abdominal pain and strenous job. 5-6 maternal cousins have Crohn's diseas e and a few cousins have [facility] Medical History (Updated 03/08/23 @ 08:55 by Oziel Haynes PA-C) Rectal bleeding Anal pain Anal fissure Depression Anxiety Surgical History Hx of esophagogastroduodenoscopy History of colonoscopy (~06/14/18) History of mastectomy (~2013) History of cystoscopy (~05/25/17) History of tonsillectomy Family History Father History of hypertension Mother History of hyperthyroidism Brother No problems noted. Sister No problems noted. Social History (Updated 03/08/23 @ 08:38 by Oziel Haynes PA-C) Household Members: Family Housing: Apartment Alcohol intake: current Alcohol intake frequency: holidays/special occasions only Patient Tobacco Use Status: Never used Tobacco e-Cigarette/Vaping Use: Never Used Second Hand Smoke Exposure: No Current occupational status: employed Current occupation: [employer] Cognitive needs: No Hearing needs: No Vision needs: Yes Review of Systems Const All systems reviewed & are unremarkable except as noted in HPI and below Physical Exam Vital Signs: Last Vital Signs Pulse 82 02/10/23 07:30 BP 124/71 02/10/23 07:30 BMI result Body Mass Index 31.6 Const General: healthy appearing and no acute distress Nutritional Appearance: obese Orientation/consciousness: patient oriented x3 Limitations: no limitations HEENT Head: Yes normal to inspection Ears: hearing grossly normal bilaterally Eyes Sclerae: sclerae normal Pupils: Equal, round and reactive pupils present Neck Neck: Yes normal visual inspection Chest Chest palpation & inspection: normal inspection of the chest Resp Effort & Inspection: normal respiratory effort Auscultation: clear to auscultation bilaterally Cardio Palpation: normal PMI Rate: regular rate Rhythm: regular rhythm Heart sounds: S1 normal heart sound present, S2 normal heart sound present and no murmurs GI Palpation (GI): Soft to palpation, nontender and No hepatosplenomegaly present Auscultation: normal bowel sounds Rectal Exam - Male: Yes deferred Skin General skin exam: no rashes or lesions noted Neuro General: patient oriented x3, gait normal and moves all extremities Cranial nerves: Yes Equal, round and reactive pupils present Psych Appearance: grossly normal Mental Status: mental status grossly normal Assessment & Plan Assessment & Plan (1) Globus sensation: Code(s): R19.8 - Other specified symptoms and signs involving the digestive system and abdomen (2) Chronic constipation: Code(s): K59.09 - Other constipation (3) Rectal bleeding: Code(s): K62.5 - Hemorrhage of anus and rectum (4) Internal hemorrhoids: Code(s): K64.8 - Other hemorrhoids (5) Abdominal pain: Code(s): R10.9 - Unspecified abdominal pain (6) Vitamin B12 deficiency: Code(s): E53.8 - Deficiency of other specified B group vitamins (7) Chronic diarrhea: Code(s): K52.9 - Noninfective gastroenteritis and colitis, unspecified (8) Anal pain: Code(s): K62.89 - Other specified diseases of anus and rectum (9) Anal fissure: Code(s): K60.2 - Anal fissure, unspecified (10) GERD (gastroesophageal reflux disease): Code(s): K21.9 - Gastro-esophageal reflux disease without esophagitis (11) Chest pain, atypical: Code(s): R07.89 - Other chest pain (12) Vitamin D deficiency: Code(s): E55.9 - Vitamin D deficiency, unspecified Plan 27 YM with with dysuria, anxiety, depression, gynecomastia, prostatitis, HX CHALAMYDIA and PAROTID STONES with perianal/rectal pain, pruritis ani with intermittent bleeding and chronic diarrhea alternating with constipation with yellow mucous for the past 1 year. Colonoscopy in 06/2018 showed a tight anal sphincter, healing anal fissure and moderate hemorrhoids and no polyps. Random biopsies obtained from the colon and rectum were negative for IBD. Rectal pain and bleeding likely due to anal fissure versus hemorrhoids. Pt was prescribed NTG rectal cream and pt was able to obtain it from [facility] in [place] for $50 since it was not covered by his insurance. He noted some improvement in pain after using NTG cream without complete re solution. Pt complains of intermittent episodes of abd pain, nausea, bloating, constipation, non-bloody diarrhea associated with mouth sores, joint pains, chills and sweating.? His family history is positive for IBD in multiple cousins.? His symptoms are suggestive of left sided UC versus Crohn's disease. 10/2020 upper endoscopy was negative for celiac disease and colonoscopy showed poor prep and random colon and TI biopsies were normal. Fecal calprotectin was normal at 29. Patient was advised to take Linzess when he has episodes of constipation and stop any notes diarrhea. He is to continue taking a fiber supplement daily. He was referred to ENT for evaluation of globus sensation and did not get a call to schedule an appt 02/10/23 Pt states he was unable to FU since he was homeless for a while and now he has a stable spot to live in Working at [employer] in the [employer]. He was taking Omeprazole in the past and not taking it anymore. Thinks he has bad acid reflux Intentional wt loss Pt was advised to resume taking Omeprazole, Vitamin B12 and Vitamin D to schedule a barium swallow FU in 2 months Orders: Orders [place] barium swallow 02/10/23 K21.9 - Gastro-esophageal reflux disease without esophagitis, R07.89 - Other chest pain, R19.8 - Other specified symptoms and signs involving the digestive system and abdomen Medications: New mecobalamin (vitamin B12) 1,000 mcg PO DAILY 90 tabs 1RF 90 days E53.8 - Deficiency of other specified B group vitamins omeprazole 20 mg PO DAILY 90 caps 1RF 90 days K21.9 - Gastro-esophageal reflux disease without esophagitis, R07.89 - Other chest pain cholecalciferol (vitamin D3) 250 mcg PO 2XW 26 tabs 1RF 90 days E55.9 - Vitamin D deficiency, unspecified Coding Level of Care Code Est Pt Level 4 (54190) Diagnoses Globus sensation R19.8 Chronic constipation K59.09 Rectal bleeding K62.5 Internal hemorrhoids K64.8 Abdominal pain R10.9 Vitamin B12 deficiency E53.8 Chronic diarrhea K52.9 Anal pain K62.89 Anal fissure K60.2 GERD (gastroesophageal reflux disease) K21.9 Chest pain, atypical R07.89 Vitamin D deficiency E55.9 Time Spent (min) 25
== END 2023-02-10 09:54 | disposition home or self-care (01) ==
PROVIDERS: PCP Physician Assistant; Visit Provider Internal Medicine Gastroenterology
DX: R19.8 Other specified symptoms and signs involving the digestive system and abdomen (principal); K59.09 Other constipation; K62.5 Hemorrhage of anus and rectum; K64.8 Other hemorrhoids; R10.9 Unspecified abdominal pain; E53.8 Deficiency of other specified B group vitamins; K52.9 Noninfective gastroenteritis and colitis, unspecified; K62.89 Other specified diseases of anus and rectum; K60.2 Anal fissure, unspecified; K21.9 Gastro-esophageal reflux disease without esophagitis; R07.89 Other chest pain; E55.9 Vitamin D deficiency, unspecified
CPT/HCPCS: 99214

== ENCOUNTER → 2023-02-10 07:25 | Outpatient (BNVA) | payer OTHER, SELFPAY | PROVIDERS: PCP Physician Assistant; Visit Provider Internal Medicine Gastroenterology ==

== ENCOUNTER 2023-03-08 08:14 | Outpatient (AMB) | payer OTHER, SELFPAY ==
[2023-03-08 08:26] VITALS: BP 124/82; PULSE 67; O2SAT 98
--- NOTE | 2023-03-08 08:26 | A.OFFPC_ITS ---
Vital Signs 3 03/08/23 08:26 Height 6 ft Weight 221 lb BMI 30.0 BP 124/82 Blood Pressure Location Lt brachial Position Sitting Pulse 67 Pulse Source Pulse Oximeter Pulse Oximetry (%) 98 Oxygen Delivery Method Room Air Intake Visit Reasons: Annual Exam Allergies doxycycline Adverse Reaction (Unknown, Verified 03/08/23 08:33) depression Medication List - Last Reconciled 03/08/23 by Oziel Haynes PA-C cholecalciferol (vitamin D3) 250 mcg PO 2XW 90 days dexmethylphenidate (Focalin) 10 mg PO DAILY mecobalamin (vitamin B12) 1,000 mcg PO DAILY 90 days omeprazole 20 mg PO DAILY 90 days Tobacco use date assessed: 03/08/23 Dental Screening Dental Screen Date: 03/08/23 Did you have a dental visit in the last 12 months?: Yes Did you have a dental problem in the last 6 months where you did not have access to dental care?: No Was dental information given to patient?: Patient has dentist HPI Annual Exam 2 HPI0 Details Patient is a 27-year-old male here today for routine annual physical.? Patient has a past medical history significant for generalized anxiety disorder, Obesity, ADHD, major depressive disorder, chronic anal pain and diarrhea, anal fissures. Concerns--> report having bilateral feet pain over the last 2 months. He reports he has developed calluses over the lateral aspect of his feet. Has tried changes socks and has been doing conservative measures such as foot soaks and moisturize in though is continues to have pain. Of note he does have a more physically demanding job .. Obesity: Have noted weight loss since last office visit. BMI now 30 .. Depression / Anxiety: Followed by a therapist and a psychiatrist who prescribes his mental health medications. He has been started on stimulant medication for ADHD which has been helpful. He still suffers from with anxiety to which he speaks with a mental health therapist for which she reports is helpful.? Vaccine: Up-to-date with COVID vaccine, up-to-date with tetanus vaccine, UTD flu vaccine [facility] Medical History (Updated 03/08/23 @ 08:55 by Oziel Haynes PA-C) Rectal bleeding Anal pain Anal fissure Depression Anxiety Surgical History Hx of esophagogastroduodenoscopy History of colonoscopy (~06/14/18) History of mastectomy (~2013) History of cystoscopy (~05/25/17) History of tonsillectomy Family History Father History of hypertension Mother History of hyperthyroidism Brother No problems noted. Sister No problems noted. Social History (Updated 03/08/23 @ 08:38 by Oziel Haynes PA-C) Household Members: Family Housing: Apartment Alcohol intake: current Alcohol intake frequency: holidays/special occasions only Patient Tobacco Use Status: Never used Tobacco e-Cigarette/Vaping Use: Never Used Second Hand Smoke Exposure: No Current occupational status: employed Current occupation: [employer] Cognitive needs: No Hearing needs: No Vision needs: Yes Questionnaire PHQ-9 Over the last 2 weeks, how often have you been bothered by any of the following problems? 1. Little interest or pleasure in doing things: not at all 2. Feeling down, depressed, or hopeless: not at all 3. Trouble falling or staying asleep, or sleeping too much: not at all 4. Feeling tired or having little energy: not at all 5. Poor appetite or overeating: not at all 6. Feeling bad about yourself - or that you are a failure or have let yourself or your family down: not at all 7. Trouble concentrating on things, such as reading the newspaper or watching television: not at all 8. Moving or speaking so slowly that other people could have noticed. Or the opposite - being so fidgety or restless that you have been moving around a lot more than usual: not at all 9. Thoughts that you would be better off or of hurting yourself in some way: not at all Total score: 0 Depression Screening Interpretation: Negative Depression Screening Done: Yes 92701 - PHQ-9 Billing: Yes Source: Developed by Drs. Bud Ly, Monica Stanton, Trace Rodriguez and colleagues, with an educational joann from [employer]. Thrive Questionnaire Date Thrive assessed: 03/08/23 I am a: Patient What is your living situation today?: I have a steady place to live Within the past 12 months, did the food you bought not last and you didn't have the money to get more?: Never true Within the past 12 months, did you worry whether your food would run out before you got money to buy more?: Never true Do you have trouble paying for medicines?: No Do you have trouble getting transportation to medical appointments?: No Do you have trouble paying your heating and electricity bill?: No Do you have trouble taking care of your child, family member or friend?: No Do you have trouble with day-to-day activities such as bathing, preparing meals, shopping, managing finances, etc.?: No Are you currently unemployed and looking for a job?: No Are you interested in more education?: No Currently or been in a relationship where the following occur: no concerns reported AUDIT C Alcohol Use Questionnaire (AUDIT-C) 1. How often do you have a drink containing alcohol?: Monthly or less 2. How many drinks containing alcohol do you have on a typical day when you are drinking?: 1 or 2 3. How often do you have six or more drinks on one occasion?: Never Total Score: 1 DADA-7 AMB Questionnaire DADA-7 Date DADA - 7 assessed: 03/08/23 Feeling nervous, anxious, or on edge: 2 = More than half the days Not being able to stop or control worryin = More than half the days Worrying too much about different things: 3 = Nearly every day Trouble relaxin = More than half the days Being so restless that it is hard to sit still: 0 = Not at all Becoming easily annoyed or irritable: 3 = Nearly every day Feeling afraid as if something awful might happen: 0 = Not at all Total DADA-7 score (0-4 normal; 5-9 mild; 10-14 moderate; 15-21 severe): 12 Source: Developed by Drs. Bud Ly, Monica Stanton, Trace Rodriguez and colleagues, with an educational joann from [employer]. DADA-7 Assessment Billing DADA-7 Assessment Tool: DADA-7 Assessment [id number] Review of Systems Const Denies body aches, Denies chills, Denies excessive sweating, Denies fatigue, Denies fever(s) and Denies headache(s) Eyes Denies blurry vision ENT Denies dysphagia, Denies vertigo, Denies dizziness, Denies headache(s), Denies hearing loss and Denies tinnitus Card Denies chest pain, Denies chest pain with activity, Denies syncope, Denies irregular heart rhythm and Denies dyspnea Resp Denies chest congestion, Denies cough, Denies hemoptysis, Denies dyspnea and Denies wheezing GI Denies abdominal pain, Denies melena, Denies hematochezia, Denies coffee ground emesis, Denies dysphagia, Denies diarrhea, Denies nausea and Denies vomiting Denies difficulty urinating, Denies dysuria, Denies urinary frequency, Denies urinary hesitancy and Denies urinary urgency Musc Denies arthralgias, Denies limited range of motion, Denies muscle cramps and Denies muscle weakness Skin/Breast Denies rash and Denies skin ulcer Neuro Denies Abnormal speech present, Denies confusion, Denies vertigo, Denies dizziness, Denies syncope, Denies headache(s), Denies memory loss and Denies seizure-like activity Psych Denies anxiety, Denies confusion, Denies depression, Denies memory loss, Denies panic attacks and Denies paranoia Endo Denies excessive sweating, Denies fatigue, Denies flushing, Denies polydipsia and Denies polyuria Aller/Immun Denies wheezing Physical exam (Primary Care) Vital Signs: Last Vital Signs Pulse 67 03/08/23 08:26 BP 124/82 03/08/23 08:26 Pulse Ox 98 03/08/23 08:26 Oxygen Delivery Method Room Air 03/08/23 08:26 BMI result Body Mass Index 30.0 Tobacco/Smoking Status: Tobacco use Status Tobacco use date assessed 03/08/23 03/08/23 08:31 Patient Tobacco Use Status Never used Tobacco 03/08/23 08:31 e-Cigarette/Vaping Use Never Used 03/08/23 08:31 PHQ-9: PHQ-9 Score PHQ-9: Total score 0 03/08/23 08:31 Depression Screening Interpretation: Negative Thrive Assessment: Date of Thrive Assessment Date Thrive assessed 03/08/23 03/08/23 08:31 Currently or been in a relationship where the following occur: no concerns reported Const General: cooperative, comfortable, no acute distress, alert and awake; No confusion Orientation/consciousness: oriented to person, oriented to place, patient oriented x3 and No confusion HENCT Head: Yes normocephalic Ears: external ears normal and TM's normal bilaterally Face and sinus: No sinus tenderness Mouth: Normal oral and palatal mucosa present and tongue normal Teeth and gingiva: dentition normal and gingiva normal Throat: Yes posterior oropharynx normal, Yes tonsils normal and Yes uvula midline Eyes Conjunctivae: conjunctivae normal Sclerae: sclerae normal Pupils: Equal, round and reactive pupils present EOM: EOMs intact bilaterally Direct Ophthalmoscopy: No no photophobia Neck Neck: Yes no lymphadenopathy, No tender and Yes no JVD Thyroid: Thyroid normal Carotids: no bruits Chest Chest palpation & inspection: no tenderness Resp Effort & Inspection: normal respiratory effort, no audible wheezes, not labored and no stridor Auscultation: no crackles, no rales, no rhonchi and no wheezes Cardio Jugular venous distension: no JVD Rate: regular rate, not bradycardic and not tachycardic Rhythm: regular rhythm Bruits: no carotid bruits Peripheral pulses: Peripheral pulses 2+ throughout GI Inspection: Yes normal to inspection, No abdominal wall ecchymosis and No visible herniation Palpation (GI): Soft to palpation, nontender, no guarding, not rigid and No hepatosplenomegaly present Auscultation: normoactive bowel sounds General: Yes no CVA tenderness Back/Spine/Pelvis Back: no CVA tenderness and No back tenderness Cervical Spine: cervical ROM normal Thoracic/Lumbar Spine: thoracic and lumbar spine normal to inspection, straight leg raise negative bilaterally, No thoraco-lumbar ROM limited and No lumbar spinal tenderness Skin Lesions: no lesions Rashes: no rashes Wounds: no wounds Neuro General: oriented to person, oriented to place, patient oriented x3, CN's II-XI intact bilaterally and No confusion Cranial nerves: Yes Equal, round and reactive pupils present and Yes Normal accommodation reflex present Cognition (Neuro): normal cognition Speech: No Abnormal speech present Gait exam (Neuro): Normal gait present Motor exam (neuro): 5/5 motor strength present throughout Extrem Right upper extremity: full ROM; no cyanosis Left upper extremity: full ROM; no cyanosis Right lower extremity: no edema Left lower extremity: no edema Ankle/foot/toe images: 2 1. NOTED SMALL FOOT CALLUS OVER LATERAL ASPECT OF BILATERAL FEET. Psych Appearance: grossly normal Mental Status: mental status grossly normal Affect: normal affect Attitude: cooperative Thought process: Normal thought process present Assessment and Plan Assessment & Plan (1) Annual physical exam: Code(s): Z00.00 - Encounter for general adult medical examination without abnormal findings (2) Vitamin D deficiency: Code(s): E55.9 - Vitamin D deficiency, unspecified Plan: Noted vitamin-D deficiency. Has been started on vitamin-D supplementation. Will check vitamin-D to assure above 30. (3) Obese: Code(s): E66.9 - Obesity, unspecified Qualifiers: Obesity type: due to excess calories Obesity classification: adult class 2 (BMI 35 - 39.9) Serious obesity comorbidity presence: without serious comorbidity Body mass index: BMI 35.0-35.9 Qualified Code(s): E66.09 - Other obesity due to excess calories; Z68.35 - Body mass index [BMI] 35.0-35.9, adult Plan: Have noted weight loss since last office visit. BMI is 30. Likely secondary to being more physically active and now being on a stimulant for his ADHD. (4) Vitamin B12 deficiency: Code(s): E53.8 - Deficiency of other specified B group vitamins Plan: Has been started on B12 supplementation. He has been buying B12 supplement [id number]. Most recent B12 within normal range and November of 2021. Will recheck B12 folate along with intrinsic factor and parietal cell antibodies. (5) Foot callus: Code(s): L84 - Corns and callosities Plan: Reports having bilateral lateral foot pain with callus formation. He attributes this to having wide feet. He has been soaking his feet in using moisturizer on a daily basis. Advised on conservative treatment such as using [id number] sole inserts. Will refer to Podiatry for evaluation. (6) Screening for diabetes mellitus (DM): Code(s): Z13.1 - Encounter for screening for diabetes mellitus (7) Attention and concentration deficit: Code(s): R41.840 - Attention and concentration deficit Plan: Continues to follow a mental health therapist and a psychiatrist who manages his mental health medication. Continues on Focalin which has been helpful on helping him with his attention and focus. 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 He is in therapy and does speak with a mental health therapist. Orders: Orders 2 Vitamin B12 and Folate Today E53.8 - Deficiency of other specified B group vitamins Intrinsic Factor Antibodies Today E53.8 - Deficiency of other specified B group vitamins Parietal Cell Antibody Today E53.8 - Deficiency of other specified B group vitamins Vitamin D 25-OH Total Today E55.9 - Vitamin D deficiency, unspecified Comprehensive [place]. Panel Fast Today Z13.1 - Encounter for screening for diabetes mellitus Complete Blood Count no Diff Today E53.8 - Deficiency of other specified B group vitamins Referrals 2 Podiatry Referral L84 - Corns and callosities Coding Level of Care Code Est Pt Prev Care [id number]) Diagnoses Annual physical exam Z00.00 Vitamin D deficiency E55.9 Class 2 obesity due to excess calories without serious comorbidity with body mass index (BMI) of 35.0 to 35.9 in adult E66.09; Z68.35 Obesity type: due to excess calories Obesity classification: adult class 2 (BMI 35 - 39.9) Serious obesity comorbidity presence: without serious comorbidity Body mass index: BMI 35.0-35.9 Vitamin B12 deficiency E53.8 Foot callus L84 Screening for diabetes mellitus (DM) Z13.1 Attention and concentration deficit R41.840 Anxiety F41.9 Additional Codes DADA-7 Assessment Billing - DADA-7 Assessment Tool: DADA-7 Assessment [id number] ([id number])
== END 2023-03-08 08:52 | disposition home or self-care (01) ==
PROVIDERS: Visit Provider Physician Assistant
DX: Z00.00 Encounter for general adult medical examination without abnormal findings (principal); E55.9 Vitamin D deficiency, unspecified; E66.09 Other obesity due to excess calories; Z68.35 Body mass index [BMI] 35.0-35.9, adult; E53.8 Deficiency of other specified B group vitamins; L84 Corns and callosities; Z13.1 Encounter for screening for diabetes mellitus; R41.840 Attention and concentration deficit; F41.9 Anxiety disorder, unspecified
CPT/HCPCS: 99395

== ENCOUNTER 2023-03-08 09:01 | Outpatient (REF) | payer OTHER, SELFPAY ==
[2023-03-08 09:53] LABS: Hematocrit 42.8 % (42.0-52.0); Mean Corpuscular HGB Conc 32.7 g/dl (31.0-36.0); Mean Corpuscular Hemoglobin 30.4 pg (27.0-33.0); Mean Corpuscular Volume 92.8 fL (80.0-98.0); Mean Platelet Volume 9.9 fL (9.4-12.4); Platelet Count 315 X10*3/uL (160-400); Red Blood Count 4.61 X10*6/uL (4.60-5.80); Red Cell Distribution Width 11.5 % (11.0-16.0)
[2023-03-08 10:22] LABS: Appearance Urine Clear; Color Urine Yellow; Glucose Urine UA Negative (Negative); Leukocyte Esterase Urine Negative (Negative); Nitrite Urine Negative (Negative); PH 6.5 (5.0-9.0); Urine Blood Negative (Negative); Urine Ketones Negative (Negative); Urine Protein Negative (Neg-Trace)
[2023-03-08 10:25] LABS: Alanine Aminotransferase 14 U/L (0-40); Albumin Level 4.4 g/dL (3.5-5.0); Alkaline Phosphatase 48 U/L (39-117); Anion Gap 11 (12-20); Aspartate Amino Transferase 19 U/L (5-37); Bilirubin Total 1.8 mg/dL (0.0-1.0); Blood Urea Nitrogen 10 mg/dL (9-16); Calcium 9.4 mg/dL (8.4-10.2); Carbon Dioxide 27 mmol/L (22-29); Chloride 107 mmol/L (96-108); Estimated Glomerular Filt Rate > 60; Glucose Fasting 89 mg/dL (60-99); Potassium 3.9 mmol/L (3.3-5.1); Sodium 141 mmol/L (135-145)
[2023-03-08 10:35] LABS: HIV AB/AG Nonreactive (Nonreactive); HIV Num 1 0.06 S/CO (0.00-0.99)
[2023-03-08 10:36] LABS: Syphilis Screen Nonreactive (Nonreactive)
[2023-03-08 10:40] LABS: Vitamin D 25-OH Total 22.8 ng/mL (>30)
[2023-03-08 10:45] LABS: Vitamin B12 298 pg/mL (200-900)
[2023-03-08 11:17] LABS: Folate 9.5 ng/mL (> or = 4.0)
[2023-03-08 12:19] LABS: CT PCR NOT DETECTED (Not Detect.); NG PCR NOT DETECTED (Not Detect.)
[2023-03-10 19:57] LABS: Intrinsic Factor Antibodies Negative (Negative)
[2023-03-11 23:03] LABS: Parietal Cell Antibody 50.2 Unit (<=20.0)
== END 2023-03-08 09:02 | disposition home or self-care (01) ==
LOC: HO.LAB 09:01
PROVIDERS: PCP Physician Assistant; Visit Provider Physician Assistant
DX: Z13.1 Encounter for screening for diabetes mellitus (principal); Z11.4 Encounter for screening for human immunodeficiency virus [HIV]; R30.0 Dysuria; E53.8 Deficiency of other specified B group vitamins; Z20.2 Contact with and (suspected) exposure to infections with a predominantly sexual mode of transmission; E55.9 Vitamin D deficiency, unspecified
CPT/HCPCS: 0353U; 80053; 81003; 82306; 82607; 82746; 83516; 85027; 86340; 86780; 87389

== ENCOUNTER 2023-04-20 10:43 | Outpatient (AMB) | payer OTHER, SELFPAY ==
--- NOTE | 2023-04-20 10:49 | A.OFFVIS_ITS ---
Intake Vital Signs 04/20/23 10:54 Height 6 ft Weight 222 lb BMI 30.1 BP 128/68 Blood Pressure Location Lt brachial Position Sitting Pulse 60 Intake Visit Reasons: follow up req by pt Intake Note: Patient follow up for abdominal pain and lab results. Patient cc: abdominal pain come and go, and acid reflex on and off. Denies any other GI issues and also his Barium swallow test is s/c for May 2023. Slide Machine Tender Required: No Accompanied by: Self / Same As Patient Allergies doxycycline Adverse Reaction (Unknown, Verified 04/20/23 10:48) depression Medication List - Last Reconciled 04/20/23 by Mel Lopes MD cholecalciferol (vitamin D3) 250 mcg PO 2XW 90 days dexmethylphenidate (Focalin) 10 mg PO DAILY mecobalamin (vitamin B12) 1,000 mcg PO DAILY 90 days omeprazole 20 mg PO DAILY 90 days HPI follow up req by pt HPI Details GI CLINIC VISIT FOR THIS 27-YEAR-OLD MALE FOR FOLLOW-UP OF ABDOMINAL PAIN, ANAL FISSURE WITH RECTAL BLEEDING. ?CHRONIC ILLNESSES:?dysuria, anxiety, depression, gynecomastia, prostatitis, HX CHALAMYDIA and PAROTID STONES ? LABS IN [facility]: Reviewed - H & H has been stable, STOOL TEST FOR GIARDIA ANTIGEN WAS NEGATIVE. ? ? ? IMAGING STUDIES:? 02/04/[address] SCAN SHOWED: 1. No CT evidence of acute intra-abdomin al process to explain patient'nivia symptoms, no evidence of appendicitis, there are no kidney stones or hydronephrosis. 2. Excess amount of stool in the colon s uggests possible constipation. 09/24/2020 ABDOMINAL ULTRASOUND SHOWED: 1. No cholelithiasis or biliary ductal d ilatation. 2. No hydronephrosis or visible renal ca lculi. 3. Visualized pancreas unremarkable. Por tions are obscured by bowel gas.? ?ENDOSCOPIC STUDIES: 11/20/20 EGD AND COLONOSCOPY SHOWED: STOMACH: Gastritis - biopsies showed?Antral-type and oxyntic mucosa with moderate chronic inactive inflammation; no Helicobacter organisms seen. DUODENUM: Normal, biopsies were obtained to check for celiac sprue Colonoscopy Findings: Partially evaluated due to poor prep - mucosa appeared normal Nodular appearing TI. Random biopsies obtained from the TI, right and left colon to check for IBD which were normal. Plan:? Patient has an appointment on 12/17/20 in the GI Clinic with Mel Lopes M.D.. Repeat Colonoscopy in 20 years if colon biopsies are normal. Jun 2018: Colonoscopy showed: ? No polyps were deteceted ? Tight anal sphincter, healing anal fissure and moderate hemorrhoids on retroflexed exam. ? Rectal pain and bleeding likely due to anal fissure versus hemorrhoids. ? Plan: Start Citrucil and hydrocortisone cream. ? Resume screening Colonoscopy at age 45 to 50 yrs. ? Above findings were reviewed with the patient and handout on Anal Fissure was given to him. ? A. Colon, random, biopsies: Colonic mucosa with no diagnostic alteration. ? B. Rectum, biopsies: Colonic mucosa with mild congestion and focal lamina propria hemorrhage; no evidence of colitis TODAY'S VISIT Patient cc: abdominal pain come and go, and acid reflex on and off. Denies any other GI issues and also his Barium swallow test is s/c for May 2023. I am feeling a lot better than last time Intentional wt loss of 75 lbs over the past 3 years Lifting heavy wts at work and eating less Finishes final for his semester and working on a Bachelor's degree in History Swallowing has improved a lot over the past 6 weeks. Chest pains are gone and throat gets sore especially if he eats late at night or takes greasy food PAST VISITS: Patient returns after hiatus of 20 months (last seen in May, 2021) Patient follow up foe ER due chest pain and short of breath. Patient cc: abdominal bloating, acid reflex with burning sensation, swallowing problems and still feeling some chest pain and pressure every time he is eating. Pt states he was unable to FU since he was homeless for a while and now he has a stable spot to live in Working at [employer] in the [employer] dept. Continues to have sore throat and chest pain - not as bad - just has tightness Symptoms started after he took antibiotics for a UTI Was noticing pressure in the throat when he ate late. Noted regurgitation when he bent and lifted something heavy Notes chest pain when he eats something and lasta 45 min to an hour. trying to eat bland foods - white rice, mashed potatoes and yogurt. Had an Omelete yesterday and it hurt for a while He was taking Omeprazole in the past and not taking it anymore. Thinks he has bad acid reflux Pt was referred to ENT for globus sensation and did not get a call to schedule an appt. Continues to have constipation, feels sphincter is tight. Denies rectal bleeding Intentional wt loss PAST VISITS CT results reviewed. Continued dull pain in the throat and feels something in the throat. Denies dysphagia. No mouth sores for the past 1.5 months. Started Vitamin B12 injections monthly since january. Complains of intermittent episodes of mouth sores, abdominal pain, diarrhea, sore joints (shoulders, elbows, hands, knees, ankles, feet and lower back). During the episode, he only able to eat white rice. Going through an episode right now since the past 2.5 weeks ago. Symptoms are clearing up over the last few days. Has cut out dairy and has helped a little bit - not as intense as they used to be. Can be in the bathroom for 2 hrs and other times it flows out and has to go to the bathroom every 20 minutes. In between the episodes he feels constipated. Denies recent rectal bleeding - minor bleeding 3 weeks ago. Wt has been fluctuating a lot. Can loose 10 lbs during the episode. Takes a Fibre supplement every morning and stool are not as hard as in the past. Notes an episode every other month since June, and episodes last for 10-14 days and then resolves spontaneously.? PAST VISIT: Took some motrin during the last episode. Has 3-4 BMs a day when he has the diarrhea - no blood or mucous in the stool. First BMs is loose and then it becomes watery. Occasional chills and sweating and denies fevers. Denies rectal bleeding during flare ups of abdominal pain or over the past few months. Wt loss of 50 lbs - combination of abdominal pain and strenous job. 5-6 maternal cousins have Crohn's diseas e and a few cousins have UC PFSH Medical History (Updated 04/20/23 @ 11:34 by Mel Lopes MD) Rectal bleeding Anal pain Anal fissure Depression Anxiety Surgical History Hx of esophagogastroduodenoscopy History of colonoscopy (~06/14/18) History of mastectomy (~2013) History of cystoscopy (~05/25/17) History of tonsillectomy Family History Father History of hypertension Mother History of hyperthyroidism Brother No problems noted. Sister No problems noted. Social History Household Members: Family Housing: Apartment Alcohol intake: current Alcohol intake frequency: holidays/special occasions only Patient Tobacco Use Status: Never used Tobacco e-Cigarette/Vaping Use: Never Used Second Hand Smoke Exposure: No Current occupational status: employed Current occupation: [employer] Cognitive needs: No Hearing needs: No Vision needs: Yes Review of Systems Const All systems reviewed & are unremarkable except as noted in HPI and below Physical Exam Vital Signs: Last Vital Signs Pulse 60 04/20/23 10:54 BP 128/68 04/20/23 10:54 BMI result Body Mass Index 30.1 Const General: healthy appearing and no acute distress Nutritional Appearance: obese Orientation/consciousness: patient oriented x3 Limitations: no limitations HEENT Head: Yes normal to inspection Ears: hearing grossly normal bilaterally Eyes Sclerae: sclerae normal Pupils: Equal, round and reactive pupils present Neck Neck: Yes normal visual inspection Chest Chest palpation & inspection: normal inspection of the chest Resp Effort & Inspection: normal respiratory effort Auscultation: clear to auscultation bilaterally Cardio Palpation: normal PMI Rate: regular rate Rhythm: regular rhythm Heart sounds: S1 normal heart sound present, S2 normal heart sound present and no murmurs GI Palpation (GI): Soft to palpation, nontender and No hepatosplenomegaly present Auscultation: normal bowel sounds Rectal Exam - Male: Yes deferred Skin General skin exam: no rashes or lesions noted Neuro General: patient oriented x3, gait normal and moves all extremities Cranial nerves: Yes Equal, round and reactive pupils present Psych Appearance: grossly normal Mental Status: mental status grossly normal Assessment & Plan Assessment & Plan (1) GERD (gastroesophageal reflux disease): Code(s): K21.9 - Gastro-esophageal reflux disease without esophagitis (2) Vitamin D deficiency: Code(s): E55.9 - Vitamin D deficiency, unspecified (3) Chronic constipation: Code(s): K59.09 - Other constipation (4) Internal hemorrhoids: Code(s): K64.8 - Other hemorrhoids (5) Vitamin B12 deficiency: Code(s): E53.8 - Deficiency of other specified B group vitamins (6) Chronic diarrhea: Code(s): K52.9 - Noninfective gastroenteritis and colitis, unspecified (7) Anal pain: Code(s): K62.89 - Other specified diseases of anus and rectum (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 2018 Colonoscopy showed a tight anal sphincter, healing anal fissure and moderate hemorrhoids and no polyps. Random biopsies obtained from the colon and rectum were negative for IBD. Rectal pain and bleeding likely due to anal fissure versus hemorrhoids. Pt was prescribed NTG rectal cream and pt was able to obtain it from [facility] compounding pharmacy in [place] for $50 since it was not covered by his insurance. He noted some improvement in pain after using NTG cream without complete resolution. Pt complains of intermittent episodes of abd pain, nausea, bloating, constipation, non-bloody diarrhea associated with mouth sores, joint pains, chills and sweating.? His family history is positive for IBD in multiple cousins.? His symptoms are suggestive of left sided UC versus Crohn's disease. 10/2020 upper endoscopy was negative for celiac disease and colonoscopy showed poor prep and random colon and TI biopsies were normal. Fecal calprotectin was normal at 29. Patient was advised to take Linzess when he has episodes of constipation and stop when he notes diarrhea. He is to continue taking a fiber supplement daily. He was referred to ENT for evaluation of globus sensation and did not get a call to schedule an appt 02/10/23 Pt states he was unable to FU since he was homeless for a while and now he has a stable spot to live in Working at [employer] in the [employer] dept. He was taking Omeprazole in the past and not taking it anymore. 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 I will check a fasting serum gastrin, pepsin 1 and pepsinogen 11. Pt will be scheduled for a FU EGD in 2023 (Of note pt had an EGD in October,) FU in 4 months after EGD Orders: Orders Other Ref Test - Misc Today E53.8 - Deficiency of other specified B group vitamins Immunoglobulin A Today E53.8 - Deficiency of other specified B group vitamins Gastrin Today E53.8 - Deficiency of other specified B group vitamins Transglutaminase IgA Today E53.8 - Deficiency of other specified B group vitamins Transglutaminase Ab IgG Today E53.8 - Deficiency of other specified B group vitamins Medications: New cholecalciferol (vitamin D3) 25 mcg PO DAILY 90 days 90 caps 0RF E55.9 - Vitamin D deficiency, unspecified Changed From omeprazole 20 mg PO DAILY 90 days 90 caps 1RF K21.9 - Gastro-esophageal reflux disease without esophagitis, R07.89 - Other chest pain To omeprazole 20 mg PO BID 90 days 180 caps 1RF K21.9 - Gastro-esophageal reflux disease without esophagitis, R07.89 - Other chest pain Coding Level of Care Code Est Pt Level 4 (64351) Diagnoses GERD (gastroesophageal reflux disease) K21.9 Vitamin D deficiency E55.9 Chronic constipation K59.09 Internal hemorrhoids K64.8 Vitamin B12 deficiency E53.8 Chronic diarrhea K52.9 Anal pain K62.89 Autoimmune gastritis K29.40 Time Spent (min) 21
[2023-04-20 10:54] VITALS: BP 128/68; PULSE 60; BMI 30.1
== END 2023-04-20 11:25 | disposition home or self-care (01) ==
PROVIDERS: PCP Physician Assistant; Visit Provider Internal Medicine Gastroenterology
DX: K21.9 Gastro-esophageal reflux disease without esophagitis (principal); E55.9 Vitamin D deficiency, unspecified; K59.09 Other constipation; K64.8 Other hemorrhoids; E53.8 Deficiency of other specified B group vitamins; K52.9 Noninfective gastroenteritis and colitis, unspecified; K62.89 Other specified diseases of anus and rectum; K29.40 Chronic atrophic gastritis without bleeding
CPT/HCPCS: 99214

== ENCOUNTER → 2023-04-20 10:43 | Outpatient (BNVA) | payer OTHER, SELFPAY | PROVIDERS: PCP Physician Assistant; Visit Provider Internal Medicine Gastroenterology ==

== ENCOUNTER 2023-05-03 07:47 | Outpatient (REF) | payer OTHER, SELFPAY ==
[2023-05-04 04:15] LABS: Syphilis Screen Nonreactive (Nonreactive)
[2023-05-04 04:36] LABS: HIV AB/AG Nonreactive (Nonreactive); HIV Num 1 0.06 S/CO (0.00-0.99)
[2023-05-04 05:56] LABS: CT PCR NOT DETECTED (Not Detect.); NG PCR NOT DETECTED (Not Detect.)
[2023-05-05 20:37] LABS: Transglutaminase Ab IgG <1.0 U/mL; Transglutaminase IgA <1.0 U/mL
[2023-05-08 15:23] LABS: Gastrin 58 pg/mL (<=100)
[2023-05-08 16:34] LABS: Immunoglobulin A 232 mg/dL (47-310)
== END 2023-05-03 07:48 | disposition home or self-care (01) ==
LOC: HO.XRAY 07:47
PROVIDERS: Absent Provider Physician Assistant; PCP Physician Assistant; Visit Provider Internal Medicine Gastroenterology
DX: K21.9 Gastro-esophageal reflux disease without esophagitis (principal); R19.8 Other specified symptoms and signs involving the digestive system and abdomen; R07.89 Other chest pain; Z20.2 Contact with and (suspected) exposure to infections with a predominantly sexual mode of transmission; E53.8 Deficiency of other specified B group vitamins
CPT/HCPCS: 0353U; 74221; 82784; 82941; 83519; 86364; 86780; 87389

== ENCOUNTER → 2023-05-03 07:48 | Outpatient (BNV) | payer OTHER, SELFPAY | PROVIDERS: Absent Provider Physician Assistant; PCP Physician Assistant; Visit Provider Radiology Diagnostic Radiology | DX: R10.13 Epigastric pain (principal) | CPT/HCPCS: 74221 ==

== ENCOUNTER 2023-08-25 15:48 | Outpatient (AMB) | payer OTHER, SELFPAY ==
--- NOTE | 2023-08-25 16:02 | AM.OFFVISNUR ---
Intake Intake Visit Reasons: B12 shot Allergies doxycycline Adverse Reaction (Unknown, Verified 04/20/23 10:48) depression Office Meds cyanocobalamin (vitamin B-12) 1,000 mcg/mL injection solution Performing Provider: Oziel Haynes PA-C [facility] Administered by: Mine Workman RN on 08/25/23 16:02 Dose Route Admin Location Dispensed Lot Number Expiration Date [place] Mathematical Engineer 1,000 mcg IM 1 mL [id number] 12/28/24 70084-870-97 [facility] Coding Assessment & Plan Assessment & Plan Orders: Orders AMB Vitamin B12 Injection Patient Supplied Today E53.8 - Deficiency of other specified B group vitamins Medications: New cyanocobalamin (vitamin B-12) 1,000 mcg IM ONCE 1 mL 0RF E53.8 - Deficiency of other specified B group vitamins
== END 2023-08-25 16:05 | disposition home or self-care (01) ==
PROVIDERS: PCP Physician Assistant; Visit Provider Physician Assistant
DX: E53.8 Deficiency of other specified B group vitamins (principal)
CPT/HCPCS: 96372; J3420

== ENCOUNTER 2023-09-14 07:43 | Outpatient (AMB) | payer OTHER, SELFPAY ==
--- NOTE | 2023-09-14 07:55 | A.OFFVIS_ITS ---
Vital Signs 09/14/23 08:14 Height 6 ft Weight 230 lb BMI 31.2 BP 99/54 L Blood Pressure Location Lt brachial Position Sitting Pulse 78 Intake Visit Reasons: Chronic GERD Intake Note: Patient follow up for GERD. Patient cc: abdominal pain and his shoulder getting sore, constipation acid reflex with burning sensation, chest sore after swallowing. Clinical Dermatologist Required: No Accompanied by: Self / Same As Patient Allergies doxycycline Adverse Reaction (Unknown, Verified 10/19/23 12:35) depression Medication List - Last Reconciled 09/14/23 by Mel Lopes MD cholecalciferol (vitamin D3) 25 mcg PO DAILY 90 days cyanocobalamin (vitamin B-12) 1,000 mcg IM Q4W 4 weeks dexmethylphenidate (Focalin) 10 mg PO DAILY lorazepam mg PO sucralfate 1 g PO BID HPI HPI Chronic GERD: Details: GI CLINIC VISIT FOR THIS 27-YEAR-OLD MALE FOR FOLLOW-UP OF ABDOMINAL PAIN, ANAL FISSURE WITH RECTAL BLEEDING. ?CHRONIC ILLNESSES:?dysuria, anxiety, depression, gynecomastia, prostatitis, HX CHALAMYDIA and PAROTID STONES ? LABS IN [id number]: Reviewed - H & H has been stable, STOOL TEST FOR GIARDIA ANTIGEN WAS NEGATIVE. ? ? ? IMAGING STUDIES:? 05/03/23 BARIUM SWALLOW SHOWED: 1. Mildly thickened appearance of gastric mucosal folds, possibly representing mild gastritis. Correlation with EGD may be of benefit. 2. Normal hypopharynx and esophagus. No hiatus hernia noted. No reflux noted. No explanation for globus sensation. 3. Normal duodenal bulb and sweep, and proximal jejunum. 02/04/[address] SCAN SHOWED: 1. No CT evidence of acute intra-abdominal process to explain patient'nivia symptoms, no evidence of appendicitis, there are no kidney stones or hydronephrosis. 2. Excess amount of stool in the colon suggests possible constipation. 09/24/2020 ABDOMINAL ULTRASOUND SHOWED: 1. No cholelithiasis or biliary ductal dilatation. 2. No hydronephrosis or visible renal calculi. 3. Visualized pancreas unremarkable. Portions are obscured by bowel gas.? ENDOSCOPIC STUDIES: 11/20/20 EGD AND COLONOSCOPY SHOWED: STOMACH: Gastritis - biopsies showed? Antral-type and oxyntic mucosa with moderate chronic inactive inflammation; no Helicobacter organisms seen. DUODENUM: Normal, biopsies were obtained to check for celiac sprue Colonoscopy Findings: Partially evaluated due to poor prep - mucosa appeared normal Nodular appearing TI. Random biopsies obtained from the TI, right and left colon to check for IBD which were normal. Plan:? Patient has an appointment on 12/17/20 in the GI Clinic with Mel Lopes M.D.. Repeat Colonoscopy in 20 years if colon biopsies are normal. Jun 2018: Colonoscopy showed: ? No polyps were deteceted ? Tight anal sphincter, healing anal fissure and moderate hemorrhoids on retroflexed exam. ? Rectal pain and bleeding likely due to anal fissure versus hemorrhoids. ? Plan: Start Citrucil and hydrocortisone cream. ? Resume screening Colonoscopy at age 45 to 50 yrs. ? Above findings were reviewed with the patient and handout on Anal Fissure was given to him. ? A. Colon, random, biopsies: Colonic mucosa with no diagnostic alteration. ? B. Rectum, biopsies: Colonic mucosa with mild congestion and focal lamina propria hemorrhage; no evidence of colitis TODAY'S VISIT Patient cc: abdominal pain and his shoulder getting sore, constipation acid reflex with burning sensation, chest sore after swallowing. Having a flare up. [place] when he stopped taking the Omeprazole Having a globus sensation, tightness in the chest whenever he eats or drinks anything Constipated - stools are small and float Gums are swollen Burping, foul smelling gas Feels full very quickly - after eating half a sandwich Alba he was not digesting the food he was eating Has a BM once a day with incomplete evacuation Stools are hard and sometimes loose. Tried Miralax which helped a little bit - helped him go and a lot did not come out. When he has a big mushy stool come out, he feels awful after a few hours. Feels good for 20 min and then everything starts to tense up again PAST VISITS: Denies any other GI issues and also his Barium swallow test is s/c for May 2023. I am feeling a lot better than last time Intentional wt loss of 75 lbs over the past 3 years Lifting heavy wts at work and eating less Finishes final for his semester and working on a Bachelor's degree in History Swallowing has improved a lot over the past 6 weeks. Chest pains are gone and throat gets sore especially if he eats late at night or takes greasy food Patient returns after hiatus of 20 months (last seen in May, 2021) Patient follow up foe ER due chest pain and short of breath. Patient cc: abdominal bloating, acid reflex with burning sensation, swallowing problems and still feeling some chest pain and pressure every time he is eating. Pt states he was unable to FU since he was homeless for a while and now he has a stable spot to live in Working at [employer] [place] the [employer] de[employer]. Continues to have sore throat and chest pain - not as bad - just has tightness Symptoms started after he took antibiotics for a UTI Was noticing pressure in the throat when he ate late. Noted regurgitation when he bent and lifted something heavy Notes chest pain when he eats something and lasta 45 min to an hour. trying to eat bland foods - white rice, mashed potatoes and yogurt. Had an Omelete yesterday and it hurt for a while He was taking Omeprazole in the past and not taking it anymore. Thinks he has bad acid reflux Pt was referred to ENT for globus sensation and did not get a call to schedule an appt. Continues to have constipation, feels sphincter is tight. Denies rectal bleeding Intentional wt loss PAST VISITS CT results reviewed. Continued dull pain in the throat and feels something in the throat. Denies dysphagia. No mouth sores for the past 1.5 months. Started Vitamin B12 injections monthly since january. Complains of intermittent episodes of mouth sores, abdominal pain, diarrhea, sore joints (shoulders, elbows, hands, knees, ankles, feet and lower back). During the episode, he only able to eat white rice. Going through an episode right now since the past 2.5 weeks ago. Symptoms are clearing up over the last few days. Has cut out dairy and has helped a little bit - not as intense as they used to be. Can be in the bathroom for 2 hrs and other times it flows out and has to go to the bathroom every 20 minutes. In between the episodes he feels constipated. Denies recent rectal bleeding - minor bleeding 3 weeks ago. Wt has been fluctuating a lot. Can loose 10 lbs during the episode. Takes a Fibre supplement every morning and stool are not as hard as in the past. Notes an episode every other month since June, and episodes last for 10-14 days and then resolves spontaneously.? PAST VISIT: Took some motrin during the last episode. Has 3-4 BMs a day when he has the diarrhea - no blood or mucous in the stool. First BMs is loose and then it becomes watery. Occasional chills and sweating and denies fevers. Denies rectal bleeding during flare ups of abdominal pain or over the past few months. Wt loss of 50 lbs - combination of abdominal pain and strenous job. 5-6 maternal cousins have Crohn's disease and a few cousins have PFSH Medical History Rectal bleeding Anal pain Anal fissure Depression Anxiety Surgical History Hx of esophagogastroduodenoscopy History of colonoscopy (~06/14/18) History of mastectomy (~2013) History of cystoscopy (~05/25/17) History of tonsillectomy Family History Father History of hypertension Mother History of hyperthyroidism Brother No problems noted. Sister No problems noted. Social History Household Members: Family Housing: Apartment Alcohol intake: current Alcohol intake frequency: holidays/special occasions only Patient Tobacco Use Status: Never used Tobacco e-Cigarette/Vaping Use: Never Used Second Hand Smoke Exposure: No Current occupational status: employed Current occupation: [employer] Cognitive needs: No Hearing needs: No Vision needs: Yes Review of Systems Const All systems reviewed & are unremarkable except as noted in HPI and below Physical Exam Vital Signs: Last Vital Signs Pulse 78 09/14/23 08:14 BP 99/54 L 09/14/23 08:14 BMI result Body Mass Index 31.2 Const General: healthy appearing and no acute distress Nutritional Appearance: obese Orientation/consciousness: patient oriented x3 Limitations: no limitations HEENT Head: Yes normal to inspection Ears: hearing grossly normal bilaterally Eyes Sclerae: sclerae normal Pupils: Equal, round and reactive pupils present Neck Neck: Yes normal visual inspection Chest Chest palpation & inspection: normal inspection of the chest Resp Effort & Inspection: normal respiratory effort Auscultation: clear to auscultation bilaterally Cardio Palpation: normal PMI Rate: regular rate Rhythm: regular rhythm Heart sounds: S1 normal heart sound present, S2 normal heart sound present and n o murmurs GI Palpation (GI): Soft to palpation, nontender and No hepatosplenomegaly present Auscultation: normal bowel sounds Rectal Exam - Male: Yes deferred Skin General skin exam: no rashes or lesions noted Neuro General: patient oriented x3, gait normal and moves all extremities Cranial nerves: Yes Equal, round and reactive pupils present Psych Appearance: grossly normal Mental Status: mental status grossly normal Assessment & Plan Assessment & Plan (1) Anal fissure: Code(s): K60.2 - Anal fissure, unspecified Category: Medical (2) Internal hemorrhoids: Code(s): K64.8 - Other hemorrhoids Category: Medical (3) Vitamin B12 deficiency: Code(s): E53.8 - Deficiency of other specified B group vitamins Category: Medical (4) Chronic diarrhea: Code(s): K52.9 - Noninfective gastroenteritis and colitis, unspecified Category: Medical (5) Chronic constipation: Code(s): K59.09 - Other constipation Category: Medical (6) GERD (gastroesophageal reflux disease): Code(s): K21.9 - Gastro-esophageal reflux disease without esophagitis Category: Medical (7) Vitamin D deficiency: Code(s): E55.9 - Vitamin D deficiency, unspecified Category: Medical (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 2019 Colonoscopy showed a tight anal sphincter, healing anal fissure and moderate hemorrhoids and no polyps. Random biopsies obtained from the colon and rectum were negative for IBD. Rectal pain and bleeding likely due to anal fissure versus hemorrhoids. Pt was prescribed NTG rectal cream and pt was able to obtain it from [facility] compounding pharmacy in [place] for $50 since it was not covered by his insurance. He noted some improvement in pain after using NTG cream without complete resolution. Pt complains of intermittent episodes of abd pain, nausea, bloating, constipation, non-bloody diarrhea associated with mouth sores, joint pains, chills and sweating.? His family history is positive for IBD in multiple cousins.? His symptoms are suggestive of left sided UC versus Crohn's disease. 10/2020 upper endoscopy was negative for celiac disease and colonoscopy showed poor prep and random colon and TI biopsies were normal. Fecal calprotectin was normal at 29. Patient was advised to take Linzess when he has episodes of constipation and stop when he notes diarrhea. He is to continue taking a fiber supplement daily. He was referred to ENT for evaluation of globus sensation and did not get a call to schedule an appt 02/10/23 Pt states he was unable to FU since he was homeless for a while and now he has a stable spot to live in Working at [employer] in the [employer] dept. He was taking Omeprazole in the past and not taking it anymore. 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 Fasting serum gastrin was 58 (normal), pepsinogen 11 elevated at 44 (normal 22). Pt will be scheduled for a FU EGD in 2023 (Of note pt had an EGD in October,) 09/14/23 Having a globus sensation, tightness in the chest whenever he eats or drinks anything Burping, foul smelling gas Feels full very quickly - after eating half a sandwich FU in 4 weeks (EGD with mapping biopsies scheduled on 10/01, GES scheduled 10/17 and FU appt on 10/19/23) FROM [employer]OD[employer]: The term metaplastic (chronic) atrophic gastritis, also referred to as gastric atrophy, is used to describe a form of chronic gastritis that, in addition to inflammation, is associated with mucosal thinning, loss of specialized cells in gastric glands, and changes in epithelial cell types (ie, metaplasia). Metaplastic (chronic) atrophic gastritis includes two main subtypes: autoimmune and environmental metaplastic atrophic gastritis (AMAG and EMAG). Although the AMAG and EMAG may be pathogenetically and clinically distinct, they often share histologic features and may overlap clinically. ?AMAG is a form of metaplastic (chronic) atrophic gastritis that results in the replacement of the normal oxyntic mucosa in the gastric corpus by atrophic and metaplastic mucosa, leading to a corpus predominant atrophic gastritis, reduced or absent acid and pepsin production and loss of intrinsic factor which may progress to a severe form of vitamin [id number] anemia known as pernicious anemia (PA). Laboratory abnormalities that are associated with AMAG include hypergastrinemia, iron deficiency anemia, antibodies to parietal cells and intrinsic factor, and vitamin B12 deficiency. Patients with AMAG have an increased risk for gastric neuroendocrine tumors and gastric adenocarcinoma. ?EMAG is thought to be due to the adverse effects of environmental factors, such as H. pylori infection and perhaps dietary constituents, on the gastric mucosa. Patients with EMAG may be asymptomatic, but many of them have dyspepsia. In contrast to AMAG, fasting serum gastrin levels are not markedly elevated in EMAG, and autoantibodies to parietal cell and intrinsic factor and PA are absent. ?The diagnosis of metaplastic (chronic) atrophic gastritis is based on the histologic evaluation of gastric biopsies which demonstrate atrophy of the gastric mucosa with the loss of glandular cells and their replacement by metaplastic epithelium. Assessment of the severity of gastric atrophy and determining the subtype of chronic atrophic gastritis requires gastric biopsy mapping with an adequate number of biopsies from specific sites ?AMAG is confined to the gastric body and fundus. Mucosal changes in patients with EMAG affect both the body/fundus and the antrum in a multifocal distribution, but with heaviest involvement of the antrum. Serologic testing for both anti-intrinsic factor and antiparietal cell antibodies and fasting gastrin levels should be performed as an adjunct to the histologic diagnosis of AMAG. ?There is no specific treatment for metaplastic (chronic) atrophic gastritis. The offending agent (eg, H. pylori), if identified, should be eliminated as early as possible. ?The risk of gastric cancer in patients with metaplastic (chronic) atrophic gastritis is uncertain and probably does not warrant routine surveillance in patients with mild to moderate atrophy restricted to the antrum. Exceptions include patients with advanced stages of atrophic gastritis (Operative Link on Gastritis Assessment /Operative Link on Gastric Intestinal Metaplasia Assessment III/IV) and those with PA. Orders: Orders Pancreatic Elastase-1 09/14/23 R14.0 - Abdominal distension (gaseous) NM gastric emptying study 09/14/23 R14.0 - Abdominal distension (gaseous), R68.81 - Early satiety Fecal Fat Qualitative 09/14/23 R14.0 - Abdominal distension (gaseous) Medications: New bisacodyl (Dulcolax (bisacodyl)) Take 4 tablets at 12 pm 10 mg (2 x 5 mg) PO ONCE 2 tabs 0RF colon prep 1 day Coding Level of Care Code Est Pt Level 4 (08659) Diagnoses Anal fissure K60.2 Internal hemorrhoids K64.8 Vitamin B12 deficiency E53.8 Chronic diarrhea K52.9 Chronic constipation K59.09 GERD (gastroesophageal reflux disease) K21.9 Vitamin D deficiency E55.9 Autoimmune gastritis K29.40 Abdominal bloating R14.0 Early satiety R68.81 Time Spent (min) 20
[2023-09-14 08:14] VITALS: BP 99/54; PULSE 78; BMI 31.2
== END 2023-09-14 09:21 | disposition home or self-care (01) ==
PROVIDERS: PCP Physician Assistant; Visit Provider Internal Medicine Gastroenterology
DX: K60.2 Anal fissure, unspecified (principal); K64.8 Other hemorrhoids; E53.8 Deficiency of other specified B group vitamins; K52.9 Noninfective gastroenteritis and colitis, unspecified; K59.09 Other constipation; K21.9 Gastro-esophageal reflux disease without esophagitis; E55.9 Vitamin D deficiency, unspecified; K29.40 Chronic atrophic gastritis without bleeding; R14.0 Abdominal distension (gaseous); R68.81 Early satiety
CPT/HCPCS: 99214

== ENCOUNTER → 2023-09-14 07:43 | Outpatient (BNVA) | payer OTHER, SELFPAY | PROVIDERS: PCP Physician Assistant; Visit Provider Internal Medicine Gastroenterology ==

== ENCOUNTER 2023-10-02 05:42 | Day surgery (SDC) | payer OTHER, SELFPAY ==
[2023-10-02 06:29] VITALS: BMI 31.9
[2023-10-02 06:34] VITALS: BP 121/81; PULSE 65; RESP 18; TEMP 36.1; O2SAT 97; BMI 31.9
[2023-10-02] MEDS: Lactated Ringers 1,000 ML 50 ML IVCONT (06:47)
--- NOTE | 2023-10-02 08:28 | P.HPSUR_ITS ---
Pre-Procedural Eval Section A - 24 Hr Update-Section A only Date of Service: 10/02/23 Section B - Complete if H&P > 30 days Chief Complaint: Gastro-esophageal reflux disease without esophagit Details of Present Illness: gastritis Relevant Family History (Specify if Yes): No Relevant Social History: None Present Medications: see Short Stay Collaborative assessment Medical History: Significant History (Anal fissure Anal pain Anxiety Depression) History of Previous Operations: Relevant previous surgery/procedure and date(s) (History of colonoscopy (~06/14/18) History of cystoscopy (~05/25/17) History of mastectomy (~2013) History of tonsillectomy) Allergies: Allergies Allergy/AdvReac Type Severity Reaction Status Date / Time doxycycline AdvReac Unknown depression Verified 09/14/23 07:55 Review of Systems Sugical H&P ROS: Negative: Constitution, Cardiovascular, Respiratory, Neurological, Psychiatric, Hem-Onc, Allergic/Immunologic, Gastrointestinal, Genitourinary, Musculoskeletal, Integumentary, Endocrine and Eyes/Ears/Nose/T hroat Exam Surgical H&P Exam: Normal: HEENT, Normal: Heart, Normal: Lungs, Normal: Extremities, Normal: Abdomen, Normal: Skin and Normal: Neurological Plan Diagnosis/Plan: Unchanged I have reviewed the history and physical and performed a pertinent physical examination on my patient. No changes have occurred unless specified. Time Spent With Patient Time: Total time managing care of this patient today ____ minutes.
--- NOTE | 2023-10-02 08:43 | W.PM.OPN ---
Operative Note Operative Note Date of Service: 10/02/23 Narrative: Procedure Description: EGD Indication: autoimmune gastritis Anesthesia: MAC FLEXIBLE TRANSORAL UPPER GASTROINTESTINAL ENDOSCOPY UPPER ENDOSCOPY Consent: Indications for the procedure and potential complications of bleeding, perforation, reaction to medications and missed diagnosis were discussed with the patient and informed consent was obtained. Instrument: Olympus GIF H 190 J mid size upper endoscope Monitoring: Vital signs and clinical assessment, continuous EKG monitoring, Pulse oximetry, Carbon Dioxide monitoring and blood pressure monitoring were done throughout the procedure. Procedure: The patient was placed in the left lateral decubitis position and pre-procedure medications were administered and a bite block was placed. The endoscope was inserted into the mouth and advanced under direct vision to the third part of duodenum. A careful inspection was made as the upper endoscope was withdrawn including a retroflexed examination of the proximal stomach; Findings and interventions are described below. Findings: Larynx:normal Esophagus: GE junction at 40 cm, diaphragm hiatus at 40 cm, normal mucosa, bx taken from distal and proximal esophagus in separate jars Stomach: mild gastritis . Biopsies were obtained from antrum, angularis, lesser, greater curves and fundus. Grade 2 flap valve on retroflexed examination of the cardia. gastric fludi sent for pH analysis Duodenum: Normal bulb and descending duodenum, bx taken Intervention: Biopsies as noted above, Impression/Findings: gastritis PLAN: await bx f/u EGd per Dr Lopes as needed
[2023-10-02 08:49] VITALS: BP 117/66; PULSE 70; RESP 16; TEMP 36.6; O2SAT 99
[2023-10-02 09:09] VITALS: BP 126/87; PULSE 55; RESP 18; TEMP 36.6; O2SAT 100
== END 2023-10-02 09:34 | disposition home or self-care (01) ==
PROVIDERS: PCP Physician Assistant; Visit Provider Internal Medicine Gastroenterology
PROC: 0DJ08ZZ Inspection of Upper Intestinal Tract, Via Natural or Artificial Opening Endoscopic (ICD-10-PCS; CPT 43235; principal; 2023-10-02 08:30)
DX: K29.60 Other gastritis without bleeding (principal); K21.9 Gastro-esophageal reflux disease without esophagitis
CPT/HCPCS: 43239; 83986; 88305; 88313; 88342; J2704

== ENCOUNTER → 2023-10-02 05:42 | Outpatient (BNV) | payer OTHER, SELFPAY | PROVIDERS: PCP Physician Assistant; Visit Provider Internal Medicine Gastroenterology | DX: K29.70 Gastritis, unspecified, without bleeding (principal) | CPT/HCPCS: 43239 ==

== ENCOUNTER 2023-10-07 09:02 | Outpatient (REF) | payer OTHER, SELFPAY ==
[2023-10-15 17:53] LABS: Catecholamine Frac, Total 314 pg/mL
== END 2023-10-07 09:03 | disposition home or self-care (01) ==
LOC: HO.LAB 09:02
PROVIDERS: Absent Provider Physician Assistant; PCP Physician Assistant; Visit Provider Internal Medicine Gastroenterology
DX: R00.0 Tachycardia, unspecified (principal)
CPT/HCPCS: 36415; 82384

== ENCOUNTER 2023-10-14 08:22 | Outpatient (REF) | payer OTHER, SELFPAY ==
[2023-10-22 00:33] LABS: Fecal Fat Qualitative Normal (Normal)
[2023-10-23 20:33] LABS: Pancreatic Elastase-1 48 mcg/g
== END 2023-10-14 08:23 | disposition home or self-care (01) ==
LOC: HO.LNP 08:22
PROVIDERS: Internal Medicine Gastroenterology; Visit Provider Physician Assistant
DX: R14.0 Abdominal distension (gaseous) (principal)
CPT/HCPCS: 82656; 82705; 87338

== ENCOUNTER → 2023-10-18 07:43 | Outpatient (REF) | payer OTHER, SELFPAY ==
--- NOTE | ~2023-10-18 | NM_ITS ---
EXAMINATION: RADIONUCLIDE SOLID FOOD GASTRIC EMPTYING 4-HOUR STUDY CLINICAL INFORMATION: Abdominal distention (gaseous), early satiety. COMPARISON: No previous gastric emptying study is available for comparison. TECHNIQUE: A standard meal consisting of 4 oz of Egg Beaters brand equivalent tagged with 1 mCi Tc-99m Sulfur Colloid, 8 oz water and 2 slices of toast with jelly was administered orally to the patient. Images were obtained using a dual head gamma camera in the anterior and posterior projections over of the stomach immediately post ingestion and at hourly intervals up to 4 hours post ingestion. The anterior and posterior counts at each time interval were averaged using the geometric mean and expressed as percentage of the immediate post ingestion counts. FINDINGS: There is good visualization of activity in the stomach immediately post ingestion. As the study progresses, there is fair clearance of activity from the stomach and visualization of progressively increasing small bowel activity. At the end of the study there is mild abnormal retention of solid food in the stomach at 4 hours. Retention in the stomach at each time interval was: 1 hour 87% (normal 37%-90%) 2 hours 54% (normal 30%-60%) 3 hours 29% 4 hours 12% (normal 0%-10%) NM/NM gastric emptying study IMPRESSION: Abnormal study. There is mild abnormal retention of solid food in the stomach at 4 hours. Gastric emptying study grading per JNMT Consensus Recommendations in 2008: https://tech.snmjournals.org/content/36/44 Grade 1 (mild retention): 11-20% at 4 hours Grade 2 (moderate retention): 21-35% at 4 hours Grade 3 (severe retention): 36-50% at 4 hours Grade 4 (very severe retention): >50% retention at 4 hours
== END ==
LOC: HO.NUCMED 07:43
PROVIDERS: PCP Physician Assistant; Visit Provider Internal Medicine Gastroenterology
DX: R14.0 Abdominal distension (gaseous) (principal); R68.81 Early satiety
CPT/HCPCS: 78264; A9541

== ENCOUNTER 2023-10-19 12:29 | Outpatient (AMB) | payer OTHER, SELFPAY ==
--- NOTE | 2023-10-19 12:31 | A.OFFVIS_ITS ---
Vital Signs 10/19/23 12:36 Height 6 ft Weight 240 lb 4.862 oz BMI 32.6 BP 124/68 Blood Pressure Location Rt brachial Position Sitting Pulse 84 Pulse Source Pulse Oximeter Pulse Oximetry (%) 98 Oxygen Delivery Method Room Air Intake Visit Reasons: s/p egd Intake Note: Bear presents in office today for a scheduled post egd FUV. CC: Pt had procedures dated 10/01 (egd) and 10/17 (NM - Gastric Study). Pt denies any complications or new concerns since their procedure. Pt reports that their current medication regimen has been working OK for them. 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 ?CHRONIC ILLNESSES:?dysuria, anxiety, depression, gynecomastia, prostatitis, HX CHALAMYDIA and PAROTID STONES ? LABS IN [facility]: Reviewed - H & H has been stable, STOOL TEST FOR GIARDIA ANTIGEN WAS NEGATIVE. ? ? ? IMAGING STUDIES:? 05/03/23 BARIUM SWALLOW SHOWED: 1. Mildly thickened appearance of gastric mucosal folds, possibly representing mild gastritis. Correlation with EGD may be of benefit. 2. Normal hypopharynx and esophagus. No hiatus hernia noted. No reflux noted. No explanation for globus sensation. 3. Normal duodenal bulb and sweep, and proximal jejunum. 02/04/[address] SCAN SHOWED: 1. No CT evidence of acute intra-abdominal process to explain patient'nivia symptoms, no evidence of appendicitis, there are no kidney stones or hydronephrosis. 2. Excess amount of stool in the colon suggests possible constipation. 09/24/2020 ABDOMINAL ULTRASOUND SHOWED: 1. No cholelithiasis or biliary ductal dilatation. 2. No hydronephrosis or visible renal calculi. 3. Visualized pancreas unremarkable. Portions are obscured by bowel gas.? ENDOSCOPIC STUDIES: 10/02/23 EGD [address] PER[address] EDEN: Esophagus: GE junction at 40 cm, diaphragm hiatus at 40 cm, normal mucosa, bx taken from distal and proximal esophagus in separate jars Stomach: mild gastritis . Biopsies were obtained from antrum, angularis, lesser, greater curves and fundus. Grade 2 flap valve on retroflexed examination of the cardia. gastric fludi sent for pH analysis Duodenum: Normal bulb and descending duodenum, bx taken Gastric biopsies were negative for Helicobacter pylori, intestinal metaplasia or dysplasia Esophageal biopsies were negative for intestinal metaplasia or fungal infection. pylori, intestinal metaplasia and dysplasia. 11/20/20 EGD AND COLONOSCOPY SHOWED: STOMACH: Gastritis - biopsies showed? Antral-type and oxyntic mucosa with moderate chronic inactive inflammation; no Helicobacter organisms seen. DUODENUM: Normal, biopsies were obtained to check for celiac sprue Colonoscopy Findings: Partially evaluated due to poor prep - mucosa appeared normal Nodular appearing TI. Random biopsies obtained from the TI, right and left colon to check for IBD which were normal. Plan:? Patient has an appointment on 12/17/20 in the GI Clinic with Mel Lopes M.D.. Repeat Colonoscopy in 20 years if colon biopsies are normal. Jun 2018: Colonoscopy showed: ? No polyps were deteceted ? Tight anal sphincter, healing anal fissure and moderate hemorrhoids on retroflexed exam. ? Rectal pain and bleeding likely due to anal fissure versus hemorrhoids. ? Plan: Start Citrucil and hydrocortisone cream. ? Resume screening Colonoscopy at age 45 to 50 yrs. ? Above findings were reviewed with the patient and handout on Anal Fissure was given to him. ? A. Colon, random, biopsies: Colonic mucosa with no diagnostic alteration. ? B. Rectum, biopsies: Colonic mucosa with mild congestion and focal lamina propria hemorrhage; no evidence of colitis TODAY'S VISIT CC: Pt had procedures dated 10/01 (egd) and 10/17 (NM - Gastric Study). Pt denies any complications or new concerns since their procedure. Pt reports that their current medication regimen has been working OK for them EGD and biopsy results reviewed with the patient. Waiting to receive the kit for breath hydrogen testing (may take a few weeks due to back log) Flare up has been improving. PAST VISIT: Patient cc: abdominal pain and his shoulder getting sore, constipation acid reflex with burning sensation, chest sore after swallowing. Having a flare up. [place] when he stopped taking the Omeprazole Having a globus sensation, tightness in the chest whenever he eats or drinks anything Constipated - stools are small and float Gums are swollen Burping, foul smelling gas Feels full very quickly - after eating half a sandwich [place] he was not digesting the food he was eating Has a BM once a day with incomplete evacuation Stools are hard and sometimes loose. Tried Miralax which helped a little bit - helped him go and a lot did not come out. When he has a big mushy stool come out, he feels awful after a few hours. Feels good for 20 min and then everything starts to tense up again PAST VISITS: Denies any other GI issues and also his Barium swallow test is s/c for May 2023. I am feeling a lot better than last time Intentional wt loss of 75 lbs over the past 3 years Lifting heavy wts at work and eating less Finishes final for his semester and working on a Bachelor's degree in History Swallowing has improved a lot over the past 6 weeks. Chest pains are gone and throat gets sore especially if he eats late at night or takes greasy food Patient returns after hiatus of 20 months (last seen in May, 2021) Patient follow up foe ER due chest pain and short of breath. Patient cc: abdominal bloating, acid reflex with burning sensation, swallowing problems and still feeling some chest pain and pressure every time he is eating. Pt states he was unable to FU since he was homeless for a while and now he has a stable spot to live in Working at [employer] [place] the [employer] de[employer]. Continues to have sore throat and chest pain - not as bad - just has tightness Symptoms started after he took antibiotics for a UTI Was noticing pressure in the throat when he ate late. Noted regurgitation when he bent and lifted something heavy Notes chest pain when he eats something and lasta 45 min to an hour. trying to eat bland foods - white rice, mashed potatoes and yogurt. Had an Omelete yesterday and it hurt for a while He was taking Omeprazole in the past and not taking it anymore. Thinks he has bad acid reflux Pt was referred to ENT for globus sensation and did not get a call to schedule an appt. Continues to have constipation, feels sphincter is tight. Denies rectal bleeding Intentional wt loss PAST VISITS CT results reviewed. Continued dull pain in the throat and feels something in the throat. Denies dysphagia. No mouth sores for the past 1.5 months. Started Vitamin B12 injections monthly since january. Complains of intermittent episodes of mouth sores, abdominal pain, diarrhea, sore joints (shoulders, elbows, hands, knees, ankles, feet and lower back). During the episode, he only able to eat white rice. Going through an episode right now since the past 2.5 weeks ago. Symptoms are clearing up over the last few days. Has cut out dairy and has helped a little bit - not as intense as they used to be. Can be in the bathroom for 2 hrs and other times it flows out and has to go to the bathroom every 20 minutes. In between the episodes he feels constipated. Denies recent rectal bleeding - minor bleeding 3 weeks ago. Wt has been fluctuating a lot. Can loose 10 lbs during the episode. Takes a Fibre supplement every morning and stool are not as hard as in the past. Notes an episode every other month since June, and episodes last for 10-14 days and then resolves spontaneously.? PAST VISIT: Took some motrin during the last episode. Has 3-4 BMs a day when he has the diarrhea - no blood or mucous in the stool. First BMs is loose and then it becomes watery. Occasional chills and sweating and denies fevers. Denies rectal bleeding during flare ups of abdominal pain or over the past few months. Wt loss of 50 lbs - combination of abdominal pain and strenous job. 5-6 maternal cousins have Crohn's disease [facility] Medical History Rectal bleeding Anal pain Anal fissure Depression Anxiety Surgical History Hx of esophagogastroduodenoscopy History of colonoscopy (~06/14/18) History of mastectomy (~2013) History of cystoscopy (~01/25/18) History of tonsillectomy Family History Father History of hypertension Mother History of hyperthyroidism Brother No problems noted. Sister No problems noted. Social History Household Members: Family Housing: Apartment Alcohol intake: current Alcohol intake frequency: holidays/special occasions only Patient Tobacco Use Status: Never used Tobacco e-Cigarette/Vaping Use: Never Used Second Hand Smoke Exposure: No Current occupational status: employed Current occupation: [employer] Cognitive needs: No Hearing needs: No Vision needs: Yes Review of Systems Const All systems reviewed & are unremarkable except as noted in HPI and below Physical Exam Vital Signs: Last Vital Signs Pulse 84 10/19/23 12:36 BP 124/68 10/19/23 12:36 Pulse Ox 98 10/19/23 12:36 Oxygen Delivery Method Room Air 10/19/23 12:36 BMI result Body Mass Index 32.6 Const General: healthy appearing and no acute distress Nutritional Appearance: obese Orientation/consciousness: patient oriented x3 Limitations: no limitations HEENT Head: Yes normal to inspection Ears: hearing grossly normal bilaterally Eyes Sclerae: sclerae normal Pupils: Equal, round and reactive pupils present Neck Neck: Yes normal visual inspection Chest Chest palpation & inspection: normal inspection of the chest Resp Effort & Inspection: normal respiratory effort Auscultation: clear to auscultation bilaterally Cardio Palpation: normal PMI Rate: regular rate Rhythm: regular rhythm Heart sounds: S1 normal heart sound present, S2 normal heart sound present and no murmurs GI Palpation (GI): Soft to palpation, nontender and No hepatosplenomegaly present Auscultation: normal bowel sounds Rectal Exam - Male: Yes deferred Skin General skin exam: no rashes or lesions noted Neuro General: patient oriented x3, gait normal and moves all extremities Cranial nerves: Yes Equal, round and reactive pupils present Psych Appearance: grossly normal Mental Status: mental status grossly normal Assessment & Plan Assessment & Plan (1) Internal hemorrhoids: Code(s): K64.8 - Other hemorrhoids Category: Medical (2) Vitamin B12 deficiency: Code(s): E53.8 - Deficiency of other specified B group vitamins Category: Medical (3) Chronic diarrhea: Code(s): K52.9 - Noninfective gastroenteritis and colitis, unspecified Category: Medical (4) Chronic constipation: Code(s): K59.09 - Other constipation Category: Medical (5) GERD (gastroesophageal reflux disease): Code(s): K21.9 - Gastro-esophageal reflux disease without esophagitis Category: Medical (6) Vitamin D deficiency: Code(s): E55.9 - Vitamin D deficiency, unspecified Category: Medical (7) Autoimmune gastritis: Code(s): K29.40 - Chronic atrophic gastritis without bleeding Category: Medical (8) Abdominal bloating: Code(s): R14.0 - Abdominal distension (gaseous) Category: Medical (9) Early satiety: Code(s): R68.81 - Early satiety Category: Medical Plan 27 YM with with dysuria, anxiety, depression, gynecomastia, prostatitis, HX CHALAMYDIA and PAROTID STONES with perianal/rectal pain, pruritis ani with intermittent bleeding and chronic diarrhea alternating with constipation with yellow mucous for the past 1 year. 2018 Colonoscopy showed a tight anal sphincter, healing anal fissure and moderate hemorrhoids and no polyps. Random biopsies obtained from the colon and rectum were negative for IBD. Rectal pain and bleeding likely due to anal fissure versus hemorrhoids. Pt was prescribed NTG rectal cream and pt was able to obtain it from [facility] compounding pharmacy in [place] for $50 since it was not covered by his insurance. He noted some improvement in pain after using NTG cream without complete resolution. Pt complains of intermittent episodes of abd pain, nausea, bloating, constipation, non-bloody diarrhea associated with mouth sores, joint pains, chills and sweating.? His family history is positive for IBD in multiple cousins.? His symptoms are suggestive of left sided UC versus Crohn's disease. 10/2020 upper endoscopy was negative for celiac disease and colonoscopy showed poor prep and random colon and TI biopsies were normal. Fecal calprotectin was normal at 29. Patient was advised to take Linzess when he has episodes of constipation and stop when he notes diarrhea. He is to continue taking a fiber supplement daily. 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 He was taking Omeprazole in the past and not taking it anymore. 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 Fasting serum gastrin was 58 (normal), pepsinogen 11 elevated at 44 (normal 22). Pt will be scheduled for a FU EGD in 2023 (Of note pt had an EGD in October,) 09/14/23 Having a globus sensation, tightness in the chest whenever he eats or drinks anything Burping, foul smelling gas Feels full very quickly - after eating half a sandwich 10/19/23 Pt had an EGD with mapping biopsies on 10/01 and results were reviewed. GES was done and results are pending. FU in 2 months FROM [facility]: The term metaplastic (chronic) atrophic gastritis, also referred to as gastric atrophy, is used to describe a form of chronic gastritis that, in addition to inflammation, is associated with mucosal thinning, loss of specialized cells in gastric glands, and changes in epithelial cell types (ie, metaplasia). Metaplastic (chronic) atrophic gastritis includes two main subtypes: autoimmune and environmental metaplastic atrophic gastritis (AMAG and EMAG). Although the AMAG and EMAG may be pathogenetically and clinically distinct, they often share histologic features and may overlap clinically. ?AMAG is a form of metaplastic (chronic) atrophic gastritis that results in the replacement of the normal oxyntic mucosa in the gastric corpus by atrophic and metaplastic mucosa, leading to a corpus predominant atrophic gastritis, reduced or absent acid and pepsin production and loss of intrinsic factor which may progress to a severe form of vitamin E03-fufaqfrwge anemia known as pernicious anemia (PA). Laboratory abnormalities that are associated with AMAG include hypergastrinemia, iron deficiency anemia, antibodies to parietal cells and intrinsic factor, and vitamin B12 deficiency. Patients with AMAG have an increased risk for gastric neuroendocrine tumors and gastric adenocarcinoma. ?EMAG is thought to be due to the adverse effects of environmental factors, such as H. pylori infection and perhaps dietary constituents, on the gastric mucosa. Patients with EMAG may be asymptomatic, but many of them have dyspepsia. In contrast to AMAG, fasting serum gastrin levels are not markedly elevated in EMAG, and autoantibodies to parietal cell and intrinsic factor and PA are absent. ?The diagnosis of metaplastic (chronic) atrophic gastritis is based on the histologic evaluation of gastric biopsies which demonstrate atrophy of the gastric mucosa with the loss of glandular cells and their replacement by metaplastic epithelium. Assessment of the severity of gastric atrophy and determining the subtype of chronic atrophic gastritis requires gastric biopsy mapping with an adequate number of biopsies from specific sites ?AMAG is confined to the gastric body and fundus. Mucosal changes in patients with EMAG affect both the body/fundus and the antrum in a multifocal distribution, but with heaviest involvement of the antrum. Serologic testing for both anti-intrinsic factor and antiparietal cell antibodies and fasting gastrin levels should be performed as an adjunct to the histologic diagnosis of AMAG. ?There is no specific treatment for metaplastic (chronic) atrophic gastritis. The offending agent (eg, H. pylori), if identified, should be eliminated as early as possible. ?The risk of gastric cancer in patients with metaplastic (chronic) atrophic gastritis is uncertain and probably does not warrant routine surveillance in patients with mild to moderate atrophy restricted to the antrum. Exceptions include patients with advanced stages of atrophic gastritis (Operative Link on Gastritis Assessment /Operative Link on Gastric Intestinal Metaplasia Assessment III/IV) and those with PA. Coding Level of Care Code Est Pt Level 4 (36043) Diagnoses Internal hemorrhoids K64.8 Vitamin B12 deficiency E53.8 Chronic diarrhea K52.9 Chronic constipation K59.09 GERD (gastroesophageal reflux disease) K21.9 Vitamin D deficiency E55.9 Autoimmune gastritis K29.40 Abdominal bloating R14.0 Early satiety R68.81 Time Spent (min) 21
[2023-10-19 12:36] VITALS: BP 124/68; PULSE 84; O2SAT 98; BMI 32.6
== END 2023-10-19 13:43 | disposition home or self-care (01) ==
PROVIDERS: PCP Physician Assistant; Visit Provider Internal Medicine Gastroenterology
DX: K64.8 Other hemorrhoids (principal); E53.8 Deficiency of other specified B group vitamins; K52.9 Noninfective gastroenteritis and colitis, unspecified; K59.09 Other constipation; K21.9 Gastro-esophageal reflux disease without esophagitis; E55.9 Vitamin D deficiency, unspecified; K29.40 Chronic atrophic gastritis without bleeding; R14.0 Abdominal distension (gaseous); R68.81 Early satiety
CPT/HCPCS: 99214

== ENCOUNTER → 2023-10-19 12:29 | Outpatient (BNVA) | payer OTHER, SELFPAY | PROVIDERS: PCP Physician Assistant; Visit Provider Internal Medicine Gastroenterology ==

== ENCOUNTER 2023-11-10 16:05 | Outpatient (AMB) | payer OTHER, SELFPAY ==
--- NOTE | 2023-11-10 16:07 | AM.OFFVISNUR ---
Intake Visit Reasons: B-12 Allergies doxycycline Adverse Reaction (Unknown, Verified 10/19/23 12:35) depression Office Meds cyanocobalamin (vitamin B-12) 1,000 mcg/mL injection solution Performing Provider: Oziel Haynes PA-C [facility] Administered by: Eloisa Nunez RN on 11/10/23 16:14 Dose Route Admin Location Dispensed Lot Number Expiration Date [place] Water Quality Analyst 1,000 mcg IM left arm 1 mL [id number] 12/26/24 11785-092-05 [facility] Assessment & Plan Assessment & Plan Orders: Orders AMB Vitamin B12 Injection Practice Supplied Today E53.8 - Deficiency of other specified B group vitamins Medications: New cyanocobalamin (vitamin B-12) 1,000 mcg IM ONCE 1 mL 0RF E53.8 - Deficiency of other specified B group vitamins
== END 2023-11-10 16:17 | disposition home or self-care (01) ==
PROVIDERS: PCP Physician Assistant; Visit Provider Physician Assistant
DX: E53.8 Deficiency of other specified B group vitamins (principal)
CPT/HCPCS: 96372; J3420

== ENCOUNTER 2023-11-18 09:41 | Outpatient (REF) | payer OTHER, SELFPAY ==
[2023-11-18 11:18] LABS: Syphilis Screen Nonreactive (Nonreactive)
[2023-11-18 11:19] LABS: HBS Num1 6.74 mIU/mL (0-7.99); HBc Num1 0.28 S/CO (0.00-0.79); HBsAGNum1 0.25 S/CO (0.00-0.99); HIV AB/AG Nonreactive (Nonreactive); HIV Num 1 0.06 S/CO (0.00-0.99); Hepatitis B Core Antibody Nonreactive (Nonreactive); Hepatitis B Surface Antigen Negative (Negative); ~HepC Num1 0.11 S/CO (0.00-0.79); ~Hepatitis B Surface Antibody NONREACTIVE (Nonreactive); ~Hepatitis C Antibody Nonreactive (Nonreactive)
[2023-11-18 11:42] LABS: CT PCR NOT DETECTED (Not Detect.); NG PCR NOT DETECTED (Not Detect.)
[2023-11-20 22:59] LABS: Herpes Simplex Type 2 IgG <0.90 index
== END 2023-11-18 09:42 | disposition home or self-care (01) ==
LOC: HO.LAB 09:41
PROVIDERS: PCP Physician Assistant; Visit Provider Physician Assistant
DX: Z11.3 Encounter for screening for infections with a predominantly sexual mode of transmission (principal); Z20.2 Contact with and (suspected) exposure to infections with a predominantly sexual mode of transmission
CPT/HCPCS: 86695; 86696; 86704; 86706; 86780; 86803; 87340; 87389; 87491; 87591

== ENCOUNTER → 2023-12-28 13:02 | Outpatient (BNVA) | payer OTHER, SELFPAY | PROVIDERS: PCP Physician Assistant; Visit Provider Internal Medicine Gastroenterology ==

== ENCOUNTER 2023-12-28 15:18 | Outpatient (AMB) | payer OTHER, SELFPAY ==
--- NOTE | 2023-12-28 15:36 | AM.OFFVISNUR ---
Intake Visit Reasons: B12 Allergies doxycycline Adverse Reaction (Unknown, Verified 12/28/23 13:15) depression Office Meds cyanocobalamin (vitamin B-12) 1,000 mcg/mL injection solution Performing Provider: Oziel Haynes PA-C [facility] Administered by: Mine Workman RN on 12/28/23 15:36 Dose Route Admin Location Dispensed Lot Number Expiration Date NDC Felt Carbonizer 1,000 mcg IM left deltoid 1 mL [id number] 12/28/24 75585-090-81 [facility] Assessment & Plan Assessment & Plan Orders: Orders AMB Vitamin B12 Injection Patient Supplied Today E53.8 - Deficiency of other specified B group vitamins Medications: New cyanocobalamin (vitamin B-12) 1,000 mcg IM ONCE 1 mL 0RF E53.8 - Deficiency of other specified B group vitamins
== END 2023-12-28 15:45 | disposition home or self-care (01) ==
PROVIDERS: PCP Physician Assistant; Visit Provider Physician Assistant
DX: E53.8 Deficiency of other specified B group vitamins (principal)
CPT/HCPCS: 96372; J3420

== ENCOUNTER 2024-01-09 06:04 | Outpatient (REF) | payer OTHER, SELFPAY ==
[2024-01-09 07:31] LABS: Hematocrit 46.1 % (42.0-52.0); Hemoglobin 14.9 g/dl (14.0-18.0); Mean Corpuscular HGB Conc 32.3 g/dl (31.0-36.0); Mean Corpuscular Hemoglobin 30.5 pg (27.0-33.0); Mean Corpuscular Volume 94.3 fL (80.0-98.0); Mean Platelet Volume 9.8 fL (9.4-12.4); Platelet Count 323 X10*3/uL (160-400); Red Blood Count 4.89 X10*6/uL (4.60-5.80); Red Cell Distribution Width 11.5 % (11.0-16.0); White Blood Count 8.4 X10*3/uL (4.8-10.8)
[2024-01-09 08:24] LABS: Vitamin D 25-OH Total 18.9 ng/mL (>30)
[2024-01-09 08:28] LABS: HBS Num1 6.01 mIU/mL (0-7.99); HBc Num1 0.15 S/CO (0.00-0.79); HBsAGNum1 0.27 S/CO (0.00-0.99); HIV AB/AG Nonreactive (Nonreactive); HIV Num 1 0.06 S/CO (0.00-0.99); Hepatitis B Core Antibody Nonreactive (Nonreactive); Hepatitis B Surface Antigen Negative (Negative); ~HepC Num1 0.17 S/CO (0.00-0.79); ~Hepatitis B Surface Antibody NONREACTIVE (Nonreactive); ~Hepatitis C Antibody Nonreactive (Nonreactive)
[2024-01-09 08:29] LABS: Syphilis Screen Nonreactive (Nonreactive)
[2024-01-09 08:36] LABS: Folate 8.9 ng/mL (> or = 4.0); Vitamin B12 398 pg/mL (200-900)
[2024-01-09 11:00] LABS: CT PCR DETECTED (Not Detect.); NG PCR NOT DETECTED (Not Detect.)
[2024-01-10 08:58] LABS: Herpes Simplex Type 2 IgG <0.90 index
== END 2024-01-09 06:05 | disposition home or self-care (01) ==
LOC: HO.LAB 06:04
PROVIDERS: PCP Physician Assistant; Visit Provider Physician Assistant
DX: Z20.2 Contact with and (suspected) exposure to infections with a predominantly sexual mode of transmission (principal); Z11.3 Encounter for screening for infections with a predominantly sexual mode of transmission; E55.9 Vitamin D deficiency, unspecified; E53.8 Deficiency of other specified B group vitamins
CPT/HCPCS: 82306; 82607; 82746; 85027; 86695; 86696; 86704; 86706; 86780; 86803; 87340; 87389; 87491; 87591

== ENCOUNTER 2024-01-25 06:02 | Outpatient (REF) | payer OTHER, SELFPAY ==
[2024-01-25 14:54] LABS: CT PCR NOT DETECTED (Not Detect.); NG PCR NOT DETECTED (Not Detect.)
== END 2024-01-25 06:03 | disposition home or self-care (01) ==
LOC: HO.LAB 06:02
PROVIDERS: PCP Physician Assistant; Visit Provider Physician Assistant
DX: Z20.2 Contact with and (suspected) exposure to infections with a predominantly sexual mode of transmission (principal); A74.9 Chlamydial infection, unspecified
CPT/HCPCS: 87491; 87591

== ENCOUNTER 2024-02-06 05:55 | Outpatient (REF) | payer OTHER, SELFPAY ==
[2024-02-06 08:27] LABS: Syphilis Screen Nonreactive (Nonreactive)
[2024-02-06 08:28] LABS: HIV AB/AG Nonreactive (Nonreactive); HIV Num 1 0.05 S/CO (0.00-0.99)
[2024-02-06 09:15] LABS: CT PCR NOT DETECTED (Not Detect.); NG PCR NOT DETECTED (Not Detect.)
== END 2024-02-06 05:56 | disposition home or self-care (01) ==
LOC: HO.LAB 05:55
PROVIDERS: PCP Physician Assistant; Visit Provider Physician Assistant
DX: Z20.2 Contact with and (suspected) exposure to infections with a predominantly sexual mode of transmission (principal); Z11.3 Encounter for screening for infections with a predominantly sexual mode of transmission
CPT/HCPCS: 86780; 87389; 87491; 87591

== ENCOUNTER 2024-03-11 15:48 | Outpatient (AMB) | payer OTHER, SELFPAY ==
--- NOTE | 2024-03-11 15:51 | MHC.PC.OV ---
Vital Signs 03/11/24 15:55 Height 6 ft Weight 254 lb 6 oz BMI 34.5 BP 120/70 Blood Pressure Location Lt brachial Position Sitting Pulse 94 Pulse Source Pulse Oximeter Pulse Oximetry (%) 97 Oxygen Delivery Method Room Air Intake Visit Reasons: Annual PE Intake Note: Patient is here today for a physical. Automobile Racer Required: No Accompanied by: Self / Same As Patient Allergies doxycycline Adverse Reaction (Unknown, Verified 03/11/24 15:57) depression Medication List - Last Reconciled 03/11/24 by Oziel Haynes PA-C cholecalciferol (vitamin D3) 25 mcg PO DAILY 90 days cyanocobalamin (vitamin B-12) 1,000 mcg IM Q4W 4 weeks dexmethylphenidate (Focalin) 10 mg PO DAILY linaclotide (Linzess) 145 mcg PO QAM 30 days jdosec-jlxzayfy-obfngvo 10,000-32,000 -42,000 unit (Zenpep) 2 caps PO TID 30 days lorazepam 1 mg PO Q7D sucralfate 1 g PO BID Tobacco use date assessed: 03/11/24 Dental Screening Dental Screen Date: 03/11/24 Did you have a dental visit in the last 12 months?: No Did you have a dental problem in the last 6 months where you did not have access to dental care?: No Was dental information given to patient?: Yes HPI Annual PE HPI Details Patient is a 28-year-old male here today for routine annual physical.? Patient has a past medical history significant for generalized anxiety disorder, Obesity, ADHD, major depressive disorder, chronic anal pain and diarrhea, anal fissures. Concerns-->Bear reports he has been having a lot of trouble sleeping over last few months. He is unsure if this is due to his stimulant ADHD medication. He reports he is able to get the sleep though is having hard time staying asleep. Has tried melatonin though give him a hangover effect in the morning. .. Class 1 obesity: BMI now 34, has been working on reducing his weight by lifestyle and dietary modifications. .. Depression / Anxiety: Followed by a therapist and a psychiatrist who prescribes his mental health medications. He has been started on stimulant medication for ADHD which has been helpful. He still suffers from with anxiety to which he speaks with a mental health therapist for which she reports is helpful.? Vaccine: Up-to-date with QUIQ vaccine, up-to-date with tetanus vaccine, UTD flu vaccine Laboratory Tests 08/06/20 01/19/21 12/13/21 16:51 09:40 11:54 RBC 4.51 L Hgb 13.5 L Creatinine 1.02 Hemoglobin A1c % 4.3 Vitamin B12 197 L 182 L 238 25-OH Vitamin D To amari 6.0 TSH 2.59 2.87 Ur Leukocyte Laila ase Chlam trachomat DN A PCR 01/06/23 01/18/23 03/08/23 06:45 16:45 09:23 RBC 4.57 L Hgb 13.8 L Creatinine Hemoglobin A1c % Vitamin B12 298 25-OH Vitamin D To amari 22.8 L TSH Ur Leukocyte Laila ase Trace H Chlam trachomat DN A PCR 01/09/24 01/09/24 01/25/24 06:22 Unknown 06:04 RBC 4.89 Hgb Creatinine Hemoglobin A1c % Vitamin B12 398 25-OH Vitamin D To amari 18.9 L TSH Ur Leukocyte Laila ase Chlam trachomat DN A PCR DETECTED A NOT DETECTED 02/06/24 06:02 RBC Hgb Creatinine Hemoglobin A1c % Vitamin B12 25-OH Vitamin D To amari TSH Ur Leukocyte Laila ase Chlam trachomat DN A PCR NOT DETECTED [facility] Medical History (Updated 03/12/24 @ 07:33 by Oziel Haynes PA-C) Herpes simplex type 1 antibody positive Chlamydia Rectal bleeding Anal pain Anal fissure Depression Anxiety Surgical History Hx of esophagogastroduodenoscopy History of colonoscopy (~06/14/18) History of mastectomy (~2013) History of cystoscopy (~05/25/17) History of tonsillectomy Family History Father History of hypertension Mother History of hyperthyroidism Brother No problems noted. Sister No problems noted. Social History (Updated 03/11/24 @ 16:00 by Oziel Haynes PA-C) Household Members: Family Housing: Apartment Alcohol intake: current Alcohol intake frequency: holidays/special occasions only Patient Tobacco Use Status: Never used Tobacco e-Cigarette/Vaping Use: Never Used Second Hand Smoke Exposure: No service: No Current occupational status: employed Current occupation: [employer] Cognitive needs: No Hearing needs: No Vision needs: Yes Questionnaire PHQ-9 Over the last 2 weeks, how often have you been bothered by any of the following problems? 1. Little interest or pleasure in doing things: several days 2. Feeling down, depressed, or hopeless: more than half the days 3. Trouble falling or staying asleep, or sleeping too much: more than half the days 4. Feeling tired or having little energy: more than half the days 5. Poor appetite or overeating: several days 6. Feeling bad about yourself - or that you are a failure or have let yourself or your family down: more than half the days 7. Trouble concentrating on things, such as reading the newspaper or watching television: nearly every day 8. Moving or speaking so slowly that other people could have noticed. Or the opposite - being so fidgety or restless that you have been moving around a lot more than usual: several days 9. Thoughts that you would be better off or of hurting yourself in some way: not at all Total score: 14 Depression Screening Interpretation: Positive Depression Screening Follow-up: Existing condition and In treatment Depression Screening Done: Yes 02495 - PHQ-9 Billing: Yes Source: Developed by Drs. Bud Ly, Monica Stanton, Trace Rodriguez and colleagues, with an educational joann from [employer]. Thrive Questionnaire Date Thrive assessed: 03/11/24 I am a: Patient What is your living situation today?: I have a steady place to live Within the past 12 months, did the food you bought not last and you didn't have the money to get more?: I choose not to answer this question Within the past 12 months, did you worry whether your food would run out before you got money to buy more?: Never true Do you have trouble paying for medicines?: No Do you have trouble getting transportation to medical appointments?: No Do you have trouble paying your heating and electricity bill?: No Do you have trouble taking care of your child, family member or friend?: No Do you have trouble with day-to-day activities such as bathing, preparing meals, shopping, managing finances, etc.?: No Are you currently unemployed and looking for a job?: No Are you interested in more education?: Yes Please select the resources that you would like help with: None Currently or been in a relationship where the following occur: I choose not to answer THRIVE Score: 0 AUDIT C Alcohol Use Questionnaire (AUDIT-C) 1. How often do you have a drink containing alcohol?: Monthly or less 2. How many drinks containing alcohol do you have on a typical day when you are drinking?: 1 or 2 3. How often do you have six or more drinks on one occasion?: Never Total Score: 1 DADA-7 AMB Questionnaire DADA-7 Date DADA - 7 assessed: 03/11/24 Feeling nervous, anxious, or on edge: 2 = More than half the days Not being able to stop or control worryin = More than half the days Worrying too much about different things: 2 = More than half the days Trouble relaxin = More than half the days Being so restless that it is hard to sit still: 2 = More than half the days Becoming easily annoyed or irritable: 2 = More than half the days Feeling afraid as if something awful might happen: 1 = Several days Total DADA-7 score (0-4 normal; 5-9 mild; 10-14 moderate; 15-21 severe): 13 Source: Developed by Drs. Bud Ly, Monica Stanton, Trace Rodriguez and colleagues, with an educational joann from [employer]. DADA-7 Assessment Billing DADA-7 Assessment Tool: DADA-7 Assessment 18483 Review of Systems Const Denies body aches, Denies chills, Denies excessive sweating, Denies fatigue, Denies fever(s) and Denies headache(s) Eyes Denies blurry vision ENT Denies dysphagia, Denies vertigo, Denies dizziness, Denies headache(s), Denies hearing loss and Denies tinnitus Card Denies chest pain, Denies chest pain with activity, Denies syncope, Denies irregular heart rhythm and Denies dyspnea Resp Denies chest congestion, Denies cough, Denies hemoptysis, Denies dyspnea and Denies wheezing GI Denies abdominal pain, Denies melena, Denies hematochezia, Denies coffee ground emesis, Denies dysphagia, Denies diarrhea, Denies nausea and Denies vomiting Denies difficulty urinating, Denies dysuria, Denies urinary frequency, Denies urinary hesitancy and Denies urinary urgency Musc Denies arthralgias, Denies limited range of motion, Denies muscle cramps and Denies muscle weakness Skin/Breast Denies rash and Denies skin ulcer Neuro Denies Abnormal speech present, Denies confusion, Denies vertigo, Denies dizziness, Denies syncope, Denies headache(s), Denies memory loss and Denies seizure-like activity Psych Denies anxiety, Denies confusion, Denies depression, Denies memory loss, Denies panic attacks and Denies paranoia Endo Denies excessive sweating, Denies fatigue, Denies flushing, Denies polydipsia and Denies polyuria Aller/Immun Denies wheezing Physical exam (Primary Care) Vital Signs: Last Vital Signs Pulse 94 03/11/24 15:55 BP 120/70 03/11/24 15:55 Pulse Ox 97 03/11/24 15:55 Oxygen Delivery Method Room Air 03/11/24 15:55 BMI result Body Mass Index 34.5 Tobacco/Smoking Status: Tobacco use Status Tobacco use date assessed 03/11/24 03/11/24 15:58 Patient Tobacco Use Status Never used Tobacco 03/11/24 16:00 e-Cigarette/Vaping Use Never Used 03/11/24 16:00 PHQ-9: PHQ-9 Score PHQ-9: Total score 14 03/11/24 16:12 Depression Screening Interpretation: Positive Depression Screening Follow-up: Existing condition and In treatment Thrive Assessment: Date of Thrive Assessment Date Thrive assessed 03/11/24 03/11/24 15:58 Currently or been in a relationship where the following occur: I choose not to answer Const General: cooperative, comfortable, no acute distress, alert and awake; No confusion Orientation/consciousness: oriented to person, oriented to place, patient oriented x3 and No confusion HENMT Head: Yes normocephalic Ears: external ears normal and TM's normal bilaterally Face and sinus: No sinus tenderness Mouth: Normal oral and palatal mucosa present and tongue normal Teeth and gingiva: dentition normal and gingiva normal Throat: Yes posterior oropharynx normal, Yes tonsils normal and Yes uvula midline Eyes Conjunctivae: conjunctivae normal Sclerae: sclerae normal Pupils: Equal, round and reactive pupils present EOM: EOMs intact bilaterally Direct Ophthalmoscopy: No no photophobia Neck Neck: Yes no lymphadenopathy, No tender and Yes no JVD Thyroid: Thyroid normal Carotids: no bruits Chest Chest palpation & inspection: no tenderness Resp Effort & Inspection: normal respiratory effort, no audible wheezes, not labored and no stridor Auscultation: no crackles, no rales, no rhonchi and no wheezes Cardio Jugular venous distension: no JVD Rate: regular rate, not bradycardic and not tachycardic Rhythm: regular rhythm Bruits: no carotid bruits Peripheral pulses: Peripheral pulses 2+ throughout GI Inspection: Yes normal to inspection, No abdominal wall ecchymosis and No visible herniation Palpation (GI): Soft to palpation, nontender, no guarding, not rigid and No hepatosplenomegaly present Auscultation: normoactive bowel sounds General: Yes no CVA tenderness Back/Spine/Pelvis Back: no CVA tenderness and No back tenderness Cervical Spine: cervical ROM normal Thoracic/Lumbar Spine: thoracic and lumbar spine normal to inspection, straight leg raise negative bilaterally, No thoraco-lumbar ROM limited and No lumbar spinal tenderness Skin Lesions: no lesions Rashes: no rashes Wounds: no wounds Neuro General: oriented to person, oriented to place, patient oriented x3, CN's II-XI intact bilaterally and No confusion Cranial nerves: Yes Equal, round and reactive pupils present and Yes Normal accommodation reflex present Cognition (Neuro): normal cognition Speech: No Abnormal speech present Gait exam (Neuro): Normal gait present Motor exam (neuro): 5/5 motor strength present throughout Extrem Right upper extremity: full ROM; no cyanosis Left upper extremity: full ROM; no cyanosis Right lower extremity: no edema Left lower extremity: no edema Psych Appearance: grossly normal Mental Status: mental status grossly normal Affect: normal affect Attitude: cooperative Thought process: Normal thought process present Office Procedures Flu Questionnaire Does the patient have a severe egg allergy?: No Immunizations Fluarix Triv [id number] (PF) 45 mcg (15 mcg x 3)/0.5 mL IM syringe Performing Provider: Oziel Haynes PA-C [facility] [place] [facility] Documented (not given) by: CHAUNCEY Garland on 03/11/24 15:56 Reason Not Given: Patient Refused Coding Level of Care Code Est Pt Prev Care 18-39y(10439) Diagnoses Annual physical exam Z00.00 Primary insomnia F51.01 Insomnia type: primary Vitamin B12 deficiency E53.8 Screening for diabetes mellitus (DM) Z13.1 Attention and concentration deficit R41.840 Additional Codes DADA-7 Assessment Billing - DADA-7 Assessment Tool: DADA-7 Assessment 31266 ([id number]) PHQ-9 - 84363 - PHQ-9 Billing: Yes ([id number]) Assessment & Plan Assessment & Plan (1) Annual physical exam: Code(s): Z00.00 - Encounter for general adult medical examination without abnormal findings Category: Medical Plan: As per HPI (2) Insomnia: Code(s): G47.00 - Insomnia, unspecified Category: Medical Qualifiers: Insomnia type: primary Qualified Code(s): F51.01 - Primary insomnia Plan: Will reports he has not been able to sleep real well over the past few months. He does not know if this is related to his stimulant ADHD medication. Has tried melatonin though had a hangover effect. He is willing to try hydroxyzine 10-20 mg before bed. He will discuss his sleeping issues with a psychiatrist as well. (3) Vitamin B12 deficiency: Code(s): E53.8 - Deficiency of other specified B group vitamins Category: Medical Plan: B12 level normal. Continues with IM injections every 4 weeks and be 12. (4) Screening for diabetes mellitus (DM): Code(s): Z13.1 - Encounter for screening for diabetes mellitus Category: Medical Plan: As per HPI (5) Attention and concentration deficit: Code(s): R41.840 - Attention and concentration deficit Category: Medical Plan: Patient continues to follow a mental health therapist and a psychiatrist to manage his mental health medications. Orders: Orders Influenza [id number] Immunization 03/11/24 Z23 - Encounter for immunization Medications: New hydroxyzine HCl 20 mg (2 x 10 mg) PO BEDTIME 20 tabs 0RF 10 days F41.9 - Anxiety disorder, unspecified, F51.01 - Primary insomnia
[2024-03-11 15:55] VITALS: BP 120/70; PULSE 94; O2SAT 97; BMI 34.5
== END 2024-03-11 16:15 | disposition home or self-care (01) ==
PROVIDERS: PCP Physician Assistant; Visit Provider Physician Assistant
DX: Z00.00 Encounter for general adult medical examination without abnormal findings (principal); F51.01 Primary insomnia; E53.8 Deficiency of other specified B group vitamins; Z13.1 Encounter for screening for diabetes mellitus; R41.840 Attention and concentration deficit

== ENCOUNTER → 2024-03-11 15:48 | Outpatient (BNVA) | payer OTHER, SELFPAY | PROVIDERS: PCP Physician Assistant; Visit Provider Physician Assistant | DX: Z00.00 Encounter for general adult medical examination without abnormal findings (principal); Z28.21 Immunization not carried out because of patient refusal; F51.01 Primary insomnia; E53.8 Deficiency of other specified B group vitamins; R41.840 Attention and concentration deficit | CPT/HCPCS: 90471; 96127 ==

== ENCOUNTER 2024-04-12 06:02 | Outpatient (REF) | payer OTHER, SELFPAY ==
[2024-04-12 09:03] LABS: Syphilis Screen Nonreactive (Nonreactive)
[2024-04-12 09:04] LABS: HIV AB/AG Nonreactive (Nonreactive); HIV Num 1 0.06 S/CO (0.00-0.99)
[2024-04-12 12:33] LABS: CT PCR NOT DETECTED (Not Detect.); NG PCR NOT DETECTED (Not Detect.)
== END 2024-04-12 06:03 | disposition home or self-care (01) ==
LOC: HO.LAB 06:02
PROVIDERS: PCP Physician Assistant; Visit Provider Physician Assistant
DX: Z11.3 Encounter for screening for infections with a predominantly sexual mode of transmission (principal); Z20.2 Contact with and (suspected) exposure to infections with a predominantly sexual mode of transmission
CPT/HCPCS: 86780; 87389; 87491; 87591

== ENCOUNTER 2025-01-25 08:21 | Outpatient (REF) | payer OTHER, SELFPAY ==
--- OUTSIDE RECORDS SUMMARY | 2025-01-25 08:24 | XMS_ITS | Clinical Summary ---
Author Organization [facility] Address [address] [place] [address] Phone Care Team Providers Care Field Sales Associate Name Role Phone Unavailable Primary Care Provider Unavailabl e Immunizations Immunization Administration Dates Next Due DTP 05/28/1996, 6,03/13/1995, 995 DTaP 5 01/22/1999 Hep B, ped/adol 06/06/1995,01/03/1995,1994 Hib (PRP-T) 02/21/1996, 6,03/13/1995, 995 IPV 10/27/1999 MMR 01/22/1999,02/21/1996 Meningococcal Conj (Menactra) MCV4P 10/18/2006 OPV 06/06/1995,03/13/1995,01/03/1995 Tdap 10/18/2006 Family History Relation Name Status Comments Brother 1 Alive Brother: Alive and well, Alive and well Brother 2 Alive Brother: Alive and well, Alive and well Father Alive Father: Alive a nd well Mother Alive Mother: Alive a nd well Social History Tobacco Use Types Packs/Day Years Used Date Smoking Tobacco: Never Assessed Sex and Gender Information Value Date Recorded Sex Assigned at Not on file Legal Sex Male 4:36 PM EDT Gender Identity Not on file Sexual Orientation Not on file Last Filed Vital Signs Vital Sign Reading Time Taken Comments Blood Pressure 118/74 09/11/2009 12:00 AM EDT Pulse - - Temperature - - Respiratory Rate - - Oxygen Saturation - - Inhaled Oxygen Concentration - - Weight 125 kg (276 lb) 09/11/2009 12:00 AM EDT Height 179.1 cm (5' 10.5 ) 09/11/2009 12:00 AM E DT Body Mass Index 39.04 09/11/2009 12:00 AM EDT Plan of Treatment Health Maintenance Due Date Last Done Comments Varicella Vaccines (1 of 2 - 13+ 2-dose series) 10/30/2007 DTaP,Tdap,and Td Vaccines (7 - Td or Tdap) 10/18/2016 10/18/2006, 01/22/1999, 05/28/1996, Additional history exists HPV Vaccines (1 - 3-dose SCDM series) 2021 Influenza Vaccines (#1) 2024 COVID-19 Vaccine ( season) 2024 Hepatitis B Vaccines Completed 06/06/1995, 01/03/1995, 1994 HIB Vaccines Completed 02/21/1996, 09/1995, 03/13/1995, Additional history exists MMR Vaccines Completed 01/22/1999, 02/21/1996 IPV Vaccines Completed 10/27/1999, 09/1995, 03/13/1995, Additional history exists Meningococcal Vaccine Aged Out 10/18/2006 No cayla angela eligible based on patient's age to complete this topic Hepatitis A Vaccines Aged Out No long er eligible based on patient's age to complete this topic Men B Vaccine Aged Out No longer elig ible based on patient's age to complete this topic Pneumococcal Vaccine Aged Out No long er eligible based on patient's age to complete this topic
--- OUTSIDE RECORDS SUMMARY | 2025-01-25 08:24 | XMS_ITS | Encounter Summary ---
Author Organization [facility] Address [address] [place] [phone] Phone Care Team Providers Care Cognos Report Developer Name Role Phone Graciela Purvis NP Primary Care Provider Rayna de loen Encounter Details Date Type Department Care Team (Late st Contact Info) Description 12/15/2016 Conversion Encounter [facility] - [address] [id number] Social History Tobacco Use Types Packs/Day Years Used Date Smoking Tobacco: Never Assessed Sex and Gender Information Value Date Recorded Sex Assigned at Not on file Legal Sex Male 4:36 PM EDT Gender Identity Not on file Sexual Orientation Not on file documented as of this encounter Plan of Treatment Not on file documented as of this encounter Visit Diagnoses Not on filedocumented in this encounter Care Teams Cognos Report Developer Relationship Specialty Start Date End Date Graciela Purvis NP PCP - General 12/09/16 10/20/22 documented as of this encounter
[2025-01-25 13:16] LABS: CT PCR Urine NOT DETECTED (Not Detect.); NG PCR Urine NOT DETECTED (Not Detect.)
[2025-01-27 04:02] LABS: Syphilis Screen Nonreactive (Nonreactive)
[2025-01-27 04:41] LABS: HIV Num 1 0.05 S/CO (0.00-0.99)
== END 2025-01-25 08:22 | disposition home or self-care (01) ==
LOC: HO.LAB 08:21
PROVIDERS: PCP Physician Assistant; Visit Provider Physician Assistant
DX: Z11.3 Encounter for screening for infections with a predominantly sexual mode of transmission (principal); Z11.8 Encounter for screening for other infectious and parasitic diseases
CPT/HCPCS: 86780; 87389; 87491; 87591

== ENCOUNTER 2025-02-28 06:04 | Outpatient (REF) | payer OTHER, SELFPAY ==
--- OUTSIDE RECORDS SUMMARY | 2025-02-28 06:07 | XMS_ITS | Clinical Summary ---
Author Organization [facility] Address [address] [place] [phone] Phone Care Team Providers Care Tie Loader Name Role Phone Unavailable Primary Care Provider [...] 2021 Influenza Vaccines (#1) 2024 COVID-19 Vaccine (2024- season) 2024 Hepatitis B Vaccines Completed 06/06/1995, [...]
--- OUTSIDE RECORDS SUMMARY | 2025-02-28 06:07 | XMS_ITS | Encounter Summary ---
Author Organization [facility] Address [address] [place] [phone] Phone Care Team Providers Care Solar Project Manager Name Role Phone Graciela Purvis NP Primary Care Provider Rayna de leon Encounter Details Date Type Department Care Team (Late st Contact Info) Description 12/15/2016 Conversion Encounter [facility] - [address] [address] Social History Tobacco Use Types Packs/Day Years [...] on filedocumented in this encounter Care Teams Solar Project Manager Relationship Specialty Start Date End Date Graciela Purvis NP PCP - General 12/09/16 10/20/22 documented as of this encounter
[2025-02-28 06:31] LABS: MANUAL DIFF FLAG NO
[2025-02-28 07:21] LABS: Hematocrit 43.0 % (42.0-52.0); Hemoglobin 14.2 g/dl (14.0-18.0); Imm Gran Abs Auto 0.04 X10*3/uL (0.00-0.03); Imm Gran Pct Auto 0.5 % (0.0-0.4); Lymphocytes Absolute Auto 1.2 X10*3/uL (1.2-4.9); Mean Corpuscular HGB Conc 33.0 g/dl (31.0-36.0); Mean Corpuscular Hemoglobin 29.6 pg (27.0-33.0); Mean Corpuscular Volume 89.8 fL (80.0-98.0); NRBC Abs Auto 0.000 X10*3/uL (0.0-0.012); NRBC Pct Auto 0.0 /100WBC (0.0-0.2); Platelet Count 334 X10*3/uL (160-400); Red Blood Count 4.79 X10*6/uL (4.60-5.80); White Blood Count 7.8 X10*3/uL (4.8-10.8)
[2025-02-28 10:51] LABS: Syphilis Screen Nonreactive (Nonreactive)
[2025-02-28 10:52] LABS: HIV Num 1 0.07 S/CO (0.00-0.99)
[2025-02-28 11:09] LABS: CT PCR Urine NOT DETECTED (Not Detect.); NG PCR Urine NOT DETECTED (Not Detect.)
[2025-03-04 18:08] LABS: Index Value 0.05 (<0.50)
[2025-03-05 14:03] LABS: Class Alternaria alternata 0; Class Aspergillus fumigatus 0; Class Bermuda Grass 0; Class Birch 0; Class Cat Dander 0; Class Cladosporium herbarum 0; Class Cockroach 0; Class Common Ragweed 0; Class Cottonwood 0; Class Derm. pterony 0/1; Class Dermatophagoides farinae 0; Class Dog Dander 0; Class Elm 0; Class Maple Box Elder 0; Class Mountain Cedar 0; Class Mouse Urine Protein 3; Class Mugwort 0; Class Oak 0; Class Penicillium crysogenum 0; Class Rough Pigweed 0; Class Sheep Sorrel 0; Class Sycamore 0; Class Timothy Grass 0; Class Walnut Tree 0; Class White Ash 0; Class White Mulberry 0; D002 - IgE D farinae <0.10 kU/L; E001 - IgE Cat Dander <0.10 kU/L; E005 - IgE Dog Dander <0.10 kU/L; G006 - IgE Timothy Grass <0.10 kU/L; I006-IgE Cockroach, German <0.10 kU/L; M002 - IgE Cladosporium herbar <0.10 kU/L; M003 - IgE Aspergillus fumigat <0.10 kU/L; M006 - IgE Alternaria alternat <0.10 kU/L; T001 IgE Maple/Box Elder <0.10 kU/L; T006 - IgE Cedar, Mountain <0.10 kU/L; T007 - IgE Oak, White <0.10 kU/L; T008 IgE Elm, American <0.10 kU/L; T010 - IgE Walnut <0.10 kU/L; T011 - IgE Maple Leaf Sycamore <0.10 kU/L; T014 - IgE Cottonwood <0.10 kU/L; T015 - IgE Ash, White <0.10 kU/L; T070 - IgE White Mulberry <0.10 kU/L; W001 - IgE Ragweed, Short <0.10 kU/L; W006 - IgE Mugwort <0.10 kU/L; W014 IgE Pigweed, Common <0.10 kU/L; W018 IgE Sheep Sorrel <0.10 kU/L
[2025-03-06 02:18] LABS: IgE Antibody (Anti-IgE IgG) 25 ng/mL (<168)
== END 2025-02-28 06:05 | disposition home or self-care (01) ==
LOC: HO.LAB 06:04
PROVIDERS: PCP Physician Assistant; Visit Provider Physician Assistant
DX: Z01.84 Encounter for antibody response examination (principal); R05.9 Cough, unspecified; Z77.120 Contact with and (suspected) exposure to mold (toxic); Z20.2 Contact with and (suspected) exposure to infections with a predominantly sexual mode of transmission
CPT/HCPCS: 82785; 83520; 85025; 86003; 86695; 86696; 86780; 87305; 87389; 87491; 87591

== ENCOUNTER 2025-03-06 07:26 | Outpatient (AMB) | payer OTHER, SELFPAY ==
--- OUTSIDE RECORDS SUMMARY | 2025-03-06 07:29 | XMS_ITS | Encounter Summary ---
Author Organization [facility] Address [address] [place] [phone] Phone Care Team Providers Care Pivot Maker Name Role Phone Graciela Purvis NP Primary Care Provider Rayna de leon Encounter Details Date Type Department Care Team (Late st Contact Info) Description 12/15/2016 Conversion Encounter [facility] - [address] [address] Social History Tobacco Use Types Packs/Day Years [...] on filedocumented in this encounter Care Teams Pivot Maker Relationship Specialty Start Date End Date Graciela Purvis NP PCP - General 12/09/16 10/20/22 documented as of this encounter
--- OUTSIDE RECORDS SUMMARY | 2025-03-06 07:29 | XMS_ITS | Clinical Summary ---
Author Organization [facility] Address [address] [place] [phone] Phone Care Team Providers Care Director Of Casino Marketing Name Role Phone Unavailable Primary Care Provider [...]
[2025-03-06 07:37] VITALS: BP 144/75; PULSE 84; BMI 31.8
--- NOTE | 2025-03-06 07:37 | MHC.OFFVIS ---
Vital Signs 03/06/25 07:37 Height 6 ft Weight 234 lb 9.149 oz BMI 31.8 BP 144/75 H Blood Pressure Location Rt brachial Position Sitting Pulse 84 Intake Visit Reasons: Bloating r/s 11/14/24 Intake Note: Patient follow up for Bloating. Zenpep helps. Reports constipation stable. Taking Linzess as needed. TRISTEN: 12-27-2024 Patient cc: no changes in medical hx since last office visit. [place] [employer] Required: No Accompanied by: Self / Same As Patient Allergies doxycycline Adverse Reaction (Unknown, Verified 03/06/25 07:40) depression Medication List - Last Reconciled 03/06/25 by Mel Lopes MD cholecalciferol (vitamin D3) 25 mcg PO DAILY 90 days cyanocobalamin (vitamin B-12) 1,000 mcg IM Q4W 4 weeks dextroamphetamine-amphetamine 10 mg ER (Adderall XR) 10 mg PO DAILY hydroxyzine HCl 20 mg (2 x 10 mg) PO BEDTIME 10 days linaclotide (Linzess) 145 mcg PO QAM 30 days ftljfd-mukvgehp-fnrqqfc (pork) 10,000-32,000 -42,000 unit (Zenpep) 2 caps PO TID 30 days lorazepam 1 mg PO Q7D HPI HPI Bloating r/s 11/14/24: Details: GI CLINIC VISIT FOR THIS 29-YEAR-OLD MALE FOR FOLLOW-UP OF ABDOMINAL PAIN, ANAL FISSURE WITH RECTAL BLEEDING. 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 LABS IN [facility]: Reviewed - H & H has been stable, STOOL TEST FOR GIARDIA ANTIGEN WAS NEGATIVE. TODAY'S VISIT TRISTEN: 12-27-2024 Patient follow up for Bloating. Zenpep helps. Reports constipation stable. Taking Linzess as needed. Patient reports no changes in medical hx since last office visit. Having mini flareups since the summer - has been taking edibles more frequently Has watery stools when he starts having a flareup Changes his diet to plain and bland diet - unsure if it is food or increased stress. Has flareups once every 2 weeks lasting for a day or two. Notes a little heaviness and no pain in his chest like in the past. Pancreatic enzymes have been helping. PAST VISIT: Patient complains abdominal pain with bloating, acid reflex, constipation,and some difficulty swallowing, tiredness and some fatigue, and poor appetite. Had bleeding gums (usually when stomach issues are worse) and noted resolution of gum irritation after taking the antibiotics Finished antibiotics 1.5 weeks ago. Did not notice any change in symptoms. Noted a change in his stool - darker in color and not greasy Taking Zenep with meals Pt denies any complications or new concerns since their procedure. Pt reports that their current medication regimen has been working OK for them EGD and biopsy results reviewed with the patient. Waiting to receive the kit for breath hydrogen testing (may take a few weeks due to back log) Flare up has been improving. CC: Pt had procedures dated 10/01 (egd) and 10/17 (NM - Gastric Study). Patient cc: abdominal pain and his shoulder getting sore, constipation acid reflex with burning sensation, chest sore after swallowing. Having a flare up. Fowler OK when he stopped taking the Omeprazole Having a globus sensation, tightness in the chest whenever he eats or drinks anything Constipated - stools are small and float Gums are swollen Burping, foul smelling gas Feels full very quickly - after eating half a sandwich Fowler he was not digesting the food he was eating Has a BM once a day with incomplete evacuation Stools are hard and sometimes loose. Tried Miralax which helped a little bit - helped him go and a lot did not come out. When he has a big mushy stool come out, he feels awful after a few hours. Feels good for 20 min and then everything starts to tense up again PAST VISITS: Denies any other GI issues and also his Barium swallow test is s/c for May 2023. I am feeling a lot better than last time Intentional wt loss of 75 lbs over the past 3 years Lifting heavy wts at work and eating less Finishes final for his semester and working on a Bachelor's degree in History Swallowing has improved a lot over the past 6 weeks. Chest pains are gone and throat gets sore especially if he eats late at night or takes greasy food Patient returns after hiatus of 20 months (last seen in May, 2021) Patient follow up foe ER due chest pain and short of breath. Patient cc: abdominal bloating, acid reflex with burning sensation, swallowing problems and still feeling some chest pain and pressure every time he is eating. Pt states he was unable to FU since he was homeless for a while and now he has a stable spot to live in Working at [employer] in the [id number] dept. Continues to have sore throat and chest pain - not as bad - just has tightness Symptoms started after he took antibiotics for a UTI Was noticing pressure in the throat when he ate late. Noted regurgitation when he bent and lifted something heavy Notes chest pain when he eats something and lasta 45 min to an hour. trying to eat bland foods - white rice, mashed potatoes and yogurt. Had an Omelete yesterday and it hurt for a while He was taking Omeprazole in the past and not taking it anymore. Thinks he has bad acid reflux Pt was referred to ENT for globus sensation and did not get a call to schedule an appt. Continues to have constipation, feels sphincter is tight. Denies rectal bleeding Intentional wt loss PAST VISITS CT results reviewed. Continued dull pain in the throat and feels something in the throat. Denies dysphagia. No mouth sores for the past 1.5 months. Started Vitamin B12 injections monthly since january. Complains of intermittent episodes of mouth sores, abdominal pain, diarrhea, sore joints (shoulders, elbows, hands, knees, ankles, feet and lower back). During the episode, he only able to eat white rice. Going through an episode right now since the past 2.5 weeks ago. Symptoms are clearing up over the last few days. Has cut out dairy and has helped a little bit - not as intense as they used to be. Can be in the bathroom for 2 hrs and other times it flows out and has to go to the bathroom every 20 minutes. In between the episodes he feels constipated. Denies recent rectal bleeding - minor bleeding 3 weeks ago. Wt has been fluctuating a lot. Can loose 10 lbs during the episode. Takes a Fibre supplement every morning and stool are not as hard as in the past. Notes an episode every other month since June, and episodes last for 10-14 days and then resolves spontaneously.? PAST VISIT: Took some motrin during the last episode. Has 3-4 BMs a day when he has the diarrhea - no blood or mucous in the stool. First BMs is loose and then it becomes watery. Occasional chills and sweating and denies fevers. Denies rectal bleeding during flare ups of abdominal pain or over the past few months. Wt loss of 50 lbs - combination of abdominal pain and strenous job. 5-6 maternal cousins have Crohn's disease ? ? ? IMAGING STUDIES:? 05/03/23 BARIUM SWALLOW SHOWED: 1. Mildly thickened appearance of gastric mucosal folds, possibly representing mild gastritis. Correlation with EGD may be of benefit. 2. Normal hypopharynx and esophagus. No hiatus hernia noted. No reflux noted. No explanation for globus sensation. 3. Normal duodenal bulb and sweep, and proximal jejunum. 02/04/[address] SCAN SHOWED: 1. No CT evidence of acute intra-abdominal process to explain patient'nivia symptoms, no evidence of appendicitis, there are no kidney stones or hydronephrosis. 2. Excess amount of stool in the colon suggests possible constipation. 09/24/2020 ABDOMINAL ULTRASOUND SHOWED: 1. No cholelithiasis or biliary ductal dilatation. 2. No hydronephrosis or visible renal calculi. 3. Visualized pancreas unremarkable. Portions are obscured by bowel gas.? ENDOSCOPIC STUDIES: 10/02/23 EGD [address] PERFOR[address] EDEN: Esophagus: GE junction at 40 cm, diaphragm hiatus at 40 cm, normal mucosa, bx taken from distal and proximal esophagus in separate jars Stomach: mild gastritis . Biopsies were obtained from antrum, angularis, lesser, greater curves and fundus. Grade 2 flap valve on retroflexed examination of the cardia. gastric fludi sent for pH analysis Duodenum: Normal bulb and descending duodenum, bx taken Gastric biopsies were negative for Helicobacter pylori, intestinal metaplasia or dysplasia Esophageal biopsies were negative for intestinal metaplasia or fungal infection. pylori, intestinal metaplasia and dysplasia. 11/20/20 EGD AND COLONOSCOPY SHOWED: STOMACH: Gastritis - biopsies showed? Antral-type and oxyntic mucosa with moderate chronic inactive inflammation; no Helicobacter organisms seen. DUODENUM: Normal, biopsies were obtained to check for celiac sprue Colonoscopy Findings: Partially evaluated due to poor prep - mucosa appeared normal Nodular appearing TI. Random biopsies obtained from the TI, right and left colon to check for IBD which were normal. Plan:? Patient has an appointment on 12/17/20 in the GI Clinic with Mel Lopes M.D.. Repeat Colonoscopy in 20 years if colon biopsies are normal. Jun 2018: Colonoscopy showed: ? No polyps were deteceted ? Tight anal sphincter, healing anal fissure and moderate hemorrhoids on retroflexed exam. ? Rectal pain and bleeding likely due to anal fissure versus hemorrhoids. ? Plan: Start Citrucil and hydrocortisone cream. ? Resume screening Colonoscopy at age 45 to 50 yrs. ? Above findings were reviewed with the patient and handout on Anal Fissure was given to him. ? A. Colon, random, biopsies: Colonic mucosa with no diagnostic alteration. ? B. Rectum, biopsies: Colonic mucosa with mild congestion and focal lamina propria hemorrhage; no evidence of colitis [facility] Medical History (Updated 03/06/25 @ 08:01 by Mel Lopes MD) Herpes simplex type 1 antibody positive Chlamydia Rectal bleeding Anal pain Anal fissure Depression Anxiety Surgical History Hx of esophagogastroduodenoscopy History of colonoscopy (~06/14/18) History of mastectomy (~2013) History of cystoscopy (~05/25/17) History of tonsillectomy Family History Father History of hypertension Mother History of hyperthyroidism Brother No problems noted. Sister No problems noted. Social History (Updated 03/11/24 @ 16:00 by Oziel Haynes PA-C) Household Members: Family Housing: Apartment Alcohol intake: current Alcohol intake frequency: holidays/special occasions only Patient Tobacco Use Status: Never used Tobacco e-Cigarette/Vaping Use: Never Used Second Hand Smoke Exposure: No service: No Current occupational status: employed Current occupation: [employer] Cognitive needs: No Hearing needs: No Vision needs: Yes Review of Systems Const Denies fever(s), Reports headache(s) and Reports weight loss (Weight loss of 30 lb) Eyes Denies eye discharge and Denies irritation ENT Reports Normal hearing present, Denies dysphagia, Denies dizziness and Reports headache(s) Card Denies chest pain, Denies leg edema and Denies dyspnea on exertion Resp Denies cough, Denies dyspnea on exertion and Denies wheezing GI Reports abdominal pain, Reports bloating, Denies change in bowel habits, Reports constipation, Denies dysphagia, Reports early satiety, Reports heartburn, Reports diarrhea, Reports nausea and Reports other (Loss of appetite) Denies dysuria Musc Denies back pain and Reports arthralgias Skin/Breast Denies pruritus, Denies rash and Denies jaundice Neuro Reports Normal hearing present, Denies Abnormal speech present, Denies dizziness, Reports headache(s) and Denies seizure-like activity Psych Reports anxiety, Reports depression and Denies panic attacks Endo Denies cold intolerance, Denies flushing and Denies heat intolerance Filiberto/Lymph Denies easy bleeding and Denies easy bruising Aller/Immun Denies wheezing Physical Exam Vital Signs: Last Vital Signs Pulse 84 03/06/25 07:37 BP 144/75 H 03/06/25 07:37 BMI result Body Mass Index 31.8 Const General: healthy appearing and no acute distress Nutritional Appearance: obese Orientation/consciousness: patient oriented x3 Limitations: no limitations HEENT Head: Yes normal to inspection Ears: hearing grossly normal bilaterally Eyes Sclerae: sclerae normal Pupils: Equal, round and reactive pupils present Neck Neck: Yes normal visual inspection Chest Chest palpation & inspection: normal inspection of the chest Resp Effort & Inspection: normal respiratory effort Auscultation: clear to auscultation bilaterally Cardio Palpation: normal PMI Rate: regular rate Rhythm: regular rhythm Heart sounds: S1 normal heart sound present, S2 normal heart sound present and no murmurs GI Palpation (GI): Soft to palpation, nontender and No hepatosplenomegaly present Auscultation: normal bowel sounds Rectal Exam - Male: Yes deferred Skin General skin exam: no rashes or lesions noted Neuro General: patient oriented x3, gait normal and moves all extremities Cranial nerves: Yes Equal, round and reactive pupils present and Yes Normal hearing present Speech: No Abnormal speech present Psych Appearance: grossly normal Mental Status: mental status grossly normal Assessment & Plan Assessment & Plan (1) GERD (gastroesophageal reflux disease): Code(s): K21.9 - Gastro-esophageal reflux disease without esophagitis Category: Medical (2) Autoimmune gastritis: Code(s): K29.40 - Chronic atrophic gastritis without bleeding Category: Medical (3) Pancreatic insufficiency: Code(s): K86.89 - Other specified diseases of pancreas Category: Medical (4) Anal fissure: Code(s): K60.2 - Anal fissure, unspecified Category: Medical (5) Internal hemorrhoids: Code(s): K64.8 - Other hemorrhoids Category: Medical (6) Chronic diarrhea: Code(s): K52.9 - Noninfective gastroenteritis and colitis, unspecified Category: Medical (7) Chronic constipation: Code(s): K59.09 - Other constipation Category: Medical (8) Small intestinal bacterial overgrowth: Code(s): K63.8219 - Small intestinal bacterial overgrowth, unspecified Category: Medical (9) Abdominal bloating: Code(s): R14.0 - Abdominal distension (gaseous) Category: Medical (10) Vitamin B12 deficiency anemia: Code(s): D51.9 - Vitamin B12 deficiency anemia, unspecified Category: Medical (11) Vitamin B12 deficiency: Code(s): E53.8 - Deficiency of other specified B group vitamins Category: Medical (12) Vitamin D deficiency: Code(s): E55.9 - Vitamin D deficiency, unspecified Category: Medical Plan 29 YM with with dysuria, anxiety, depression, gynecomastia, prostatitis, history of chlamydia and parotid stones with perianal/rectal pain, pruritis ani with intermittent bleeding and chronic diarrhea alternating with constipation with yellow mucous for the past 1 year. 2018 Colonoscopy showed a tight anal sphincter, healing anal fissure and moderate hemorrhoids and no polyps. Random biopsies obtained from the colon and rectum were negative for IBD. Rectal pain and bleeding likely due to anal fissure versus hemorrhoids. Pt was prescribed NTG rectal cream and pt was able to obtain it from [facility] compounding pharmacy in [place] for $50 since it was not covered by his insurance. He noted some improvement in pain after using NTG cream without complete resolution. Pt complains of intermittent episodes of abd pain, nausea, bloating, constipation, non-bloody diarrhea associated with mouth sores, joint pains, chills and sweating.? His family history is positive for IBD in multiple cousins.? His symptoms are suggestive of left sided UC versus Crohn's disease. 10/2020 upper endoscopy was negative for celiac disease and colonoscopy showed poor prep and random colon and TI biopsies were normal. Fecal calprotectin was normal at 29. Patient was advised to take Linzess when he has episodes of constipation and stop when he notes diarrhea. He is to continue taking a fiber supplement daily. He was referred to ENT for evaluation of globus sensation and did not get a call to schedule an appt 02/10/23 Pt states he was unable to FU since he was homeless for a while and now he has a stable spot to live in Working at [employer] in the [employer] dept. He was taking Omeprazole in the past and not taking it anymore. 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 Fasting serum gastrin was 58 (normal), pepsinogen 11 elevated at 44 (normal 22). Pt will be scheduled for a FU EGD in 2023 (Of note pt had an EGD in October,) 09/14/23 Having a globus sensation, tightness in the chest whenever he eats or drinks anything Burping, foul smelling gas Feels full very quickly - after eating half a sandwich 10/19/23 Pt had an EGD with mapping biopsies on 10/01 and results were reviewed. GES was done and results are pending. 03/06/25 Having mini flareups since the summer - has been taking edibles more frequently Has watery stools when he starts having a flareup Changes his diet to plain and bland diet - unsure if it is food or increased stress. Has flareups once every 2 weeks lasting for a day or two. Pt advised to check labs and continue taking Linzess for constipation and pancreatic enzymes, Vitamin D and Vitamin B12 FU in 4 months - scheduled 08/21/25 FROM [facility]: The term metaplastic (chronic) atrophic gastritis, also referred to as gastric atrophy, is used to describe a form of chronic gastritis that, in addition to inflammation, is associated with mucosal thinning, loss of specialized cells in gastric glands, and changes in epithelial cell types (ie, metaplasia). Metaplastic (chronic) atrophic gastritis includes two main subtypes: autoimmune and environmental metaplastic atrophic gastritis (AMAG and EMAG). Although the AMAG and EMAG may be pathogenetically and clinically distinct, they often share histologic features and may overlap clinically. ?AMAG is a form of metaplastic (chronic) atrophic gastritis that results in the replacement of the normal oxyntic mucosa in the gastric corpus by atrophic and metaplastic mucosa, leading to a corpus predominant atrophic gastritis, reduced or absent acid and pepsin production and loss of intrinsic factor which may progress to a severe form of vitamin [id number] anemia known as pernicious anemia (PA). Laboratory abnormalities that are associated with AMAG include hypergastrinemia, iron deficiency anemia, antibodies to parietal cells and intrinsic factor, and vitamin B12 deficiency. Patients with AMAG have an increased risk for gastric neuroendocrine tumors and gastric adenocarcinoma. ?EMAG is thought to be due to the adverse effects of environmental factors, such as H. pylori infection and perhaps dietary constituents, on the gastric mucosa. Patients with EMAG may be asymptomatic, but many of them have dyspepsia. In contrast to AMAG, fasting serum gastrin levels are not markedly elevated in EMAG, and autoantibodies to parietal cell and intrinsic factor and PA are absent. ?The diagnosis of metaplastic (chronic) atrophic gastritis is based on the histologic evaluation of gastric biopsies which demonstrate atrophy of the gastric mucosa with the loss of glandular cells and their replacement by metaplastic epithelium. Assessment of the severity of gastric atrophy and determining the subtype of chronic atrophic gastritis requires gastric biopsy mapping with an adequate number of biopsies from specific sites ?AMAG is confined to the gastric body and fundus. Mucosal changes in patients with EMAG affect both the body/fundus and the antrum in a multifocal distribution, but with heaviest involvement of the antrum. Serologic testing for both anti-intrinsic factor and antiparietal cell antibodies and fasting gastrin levels should be performed as an adjunct to the histologic diagnosis of AMAG. ?There is no specific treatment for metaplastic (chronic) atrophic gastritis. The offending agent (eg, H. pylori), if identified, should be eliminated as early as possible. ?The risk of gastric cancer in patients with metaplastic (chronic) atrophic gastritis is uncertain and probably does not warrant routine surveillance in patients with mild to moderate atrophy restricted to the antrum. Exceptions include patients with advanced stages of atrophic gastritis (Operative Link on Gastritis Assessment /Operative Link on Gastric Intestinal Metaplasia Assessment III/IV) and those with PA Orders: Orders Vitamin B12 and Folate 03/06/25 E53.8 - Deficiency of other specified B group vitamins, E55.9 - Vitamin D deficiency, unspecified Liver Panel 03/06/25 K21.9 - Gastro-esophageal reflux disease without esophagitis Pancreatic Elastase-1 03/06/25 K86.89 - Other specified diseases of pancreas Vitamin D 25-OH Total 03/06/25 E53.8 - Deficiency of other specified B group vitamins, E55.9 - Vitamin D deficiency, unspecified Medications: New mecobalamin (vitamin B12) 1,000 mcg PO DAILY 90 tabs 1RF 90 days D51.9 - Vitamin B12 deficiency anemia, unspecified Coding Level of Care Code Est Pt Level 4 (60541) Diagnoses GERD (gastroesophageal reflux disease) K21.9 Autoimmune gastritis K29.40 Pancreatic insufficiency K86.89 Anal fissure K60.2 Internal hemorrhoids K64.8 Chronic diarrhea K52.9 Chronic constipation K59.09 Small intestinal bacterial overgrowth K63.8219 Abdominal bloating R14.0 Vitamin B12 deficiency anemia D51.9 Vitamin B12 deficiency E53.8 Vitamin D deficiency E55.9 Time Spent (min) 24
== END 2025-03-06 08:14 | disposition home or self-care (01) ==
LOC: HO.HGI 07:27
PROVIDERS: PCP Physician Assistant; Visit Provider Internal Medicine Gastroenterology
DX: K21.9 Gastro-esophageal reflux disease without esophagitis (principal); K29.40 Chronic atrophic gastritis without bleeding; K86.89 Other specified diseases of pancreas; K60.2 Anal fissure, unspecified; K64.8 Other hemorrhoids; K52.9 Noninfective gastroenteritis and colitis, unspecified; K59.09 Other constipation; K63.8219 Small intestinal bacterial overgrowth, unspecified; R14.0 Abdominal distension (gaseous); D51.9 Vitamin B12 deficiency anemia, unspecified; E53.8 Deficiency of other specified B group vitamins; E55.9 Vitamin D deficiency, unspecified
CPT/HCPCS: 99214

== ENCOUNTER 2025-04-30 15:41 | Outpatient (REF) | payer OTHER, SELFPAY ==
--- OUTSIDE RECORDS SUMMARY | 2025-04-30 16:02 | XMS_ITS | Encounter Summary ---
Author Organization [facility] Address [address] [place] [phone] Phone Care Team Providers Care Hoop Coiling Machine Operator Name Role Phone Graciela Purvis NP Primary Care Provider Rayna de leon Encounter Details Date Type Department Care Team (Late st Contact Info) Description 12/15/2016 Conversion Encounter [facility] - [address] [id number] Social History Tobacco Use Types Packs/Day Years [...] on filedocumented in this encounter Care Teams Hoop Coiling Machine Operator Relationship Specialty Start Date End Date Graciela Purvis NP PCP - General 12/09/16 10/20/22 documented as of this encounter
--- OUTSIDE RECORDS SUMMARY | 2025-04-30 16:02 | XMS_ITS | Clinical Summary ---
Author Organization [facility] Address [address] [place] [phone] Phone Care Team Providers Care Char Conveyor Tender Name Role Phone Unavailable Primary Care Provider [...] Meningococcal Vaccine Aged Out 10/18/2006 No cayla agnela eligible based on patient's age to complete [...]
[2025-05-01 00:57] LABS: CT PCR Urine NOT DETECTED (Not Detect.); NG PCR Urine NOT DETECTED (Not Detect.)
[2025-05-01 05:33] LABS: HBS Num1 2.69 mIU/mL (0-7.99); HBc Num1 0.08 S/CO (0.00-0.79); HBsAGNum1 0.34 S/CO (0.00-0.99); HIV Num 1 0.06 S/CO (0.00-0.99); Hepatitis B Surface Antigen Negative (Negative); ~HepC Num1 0.11 S/CO (0.00-0.79); ~Hepatitis B Surface Antibody NONREACTIVE (Nonreactive); ~Hepatitis C Antibody Nonreactive (Nonreactive)
[2025-05-01 05:35] LABS: Syphilis Screen Nonreactive (Nonreactive)
== END 2025-04-30 15:42 | disposition home or self-care (01) ==
LOC: HO.LAB 15:41
PROVIDERS: PCP Physician Assistant; Visit Provider Physician Assistant
DX: Z20.2 Contact with and (suspected) exposure to infections with a predominantly sexual mode of transmission (principal); Z11.4 Encounter for screening for human immunodeficiency virus [HIV]; Z01.84 Encounter for antibody response examination
CPT/HCPCS: 86695; 86696; 86704; 86706; 86780; 86803; 87340; 87389; 87491; 87591